=== PATIENT | female | born 1975 | race Caucasian/White ===

== ENCOUNTER → 2017-03-29 10:38 | Outpatient (CLI) | payer BC, SELFPAY ==
[2017-04-03 13:39] LABS: HPV HC, High Risk Negative (Negative)
== END ==
PROVIDERS: Family Provider Family Medicine; PCP Family Medicine; Visit Provider Family Medicine
DX: Z00.00 Encounter for general adult medical examination without abnormal findings (principal)
CPT/HCPCS: 87624; 88175; G0145

== ENCOUNTER → 2017-08-28 10:49 | Outpatient (CLI) | payer BC, SELFPAY ==
[2017-08-28 12:51] LABS: Hemoglobin A1c 5.5 % (4.2-6.3)
[2017-08-28 13:09] LABS: Absolute Lymphocyte Count 2.63 X10^3/ul (0.83-4.51); Absolute Neutrophil Count 6.8 X10^3/uL (2.0-7.7); Basophil# 0.02 X10^3/uL; Basophil% 0.2 % (0-1); Eosinophil# 0.33 X10^3/uL; Eosinophils% 3.1 % (0-5); Hematocrit 41.3 % (37-47); Lymphocyte # 2.63 X10^3/ul (4.0); Lymphocyte % 25.1 % (19-41); Mean Corp Hgb Conc 33.9 g/gl (32-36); Mean Corpuscular Hgb 31.4 pg (27.0-32.0); Mean Corpuscular Volume 92.6 fL (81-99); Mean Platelet Vol. 11.7 fl (6.2-12.0); Monocyte# 0.72 X10^3/uL; Monocyte% 6.9 % (0-10); Neutrophil # 6.76 X10^3/uL (2.7-7.7); Neutrophil % 64.5 % (47-70); Platelet Count 261 K/mm3 (150-450); RBC Distribution Width CV 12.9 % (11.6-14.6); RBC Distribution Width SD 43.1 fl (35.1-43.9); Red Blood Count 4.46 M/mm3 (4.2-5.4); White Blood Count 10.5 K/mm3 (4.4-11.0)
[2017-08-28 13:10] LABS: POSITIVE COUNT NO; POSITIVE DIFFERENTIAL NO; POSITIVE MORPHOLOGY NO
[2017-08-28 13:11] LABS: AST(SGOT) 17 U/L (15-37); Alanine Aminotransfer ALT/SGPT 30 U/L (13-56); Albumin, Serum 3.8 g/dL (3.2-5.0); Alkaline Phosphatase 77 U/L (45-117); Anion Gap 5 (5-15); BUN 10 mg/dL (7-18); BUN/Creat Ratio 12.6 RATIO (10-20); Chloride 105 mmol/L (98-107); EST Glomerular Filtration Rate 84 mL/min (>60); Est Glom Filt Rate - Afr Amer 102 mL/min (>60); Globulin 3.8 g/dL (2.2-4.2); Glucose 80 mg/dL (74-106); Potassium 4.4 mmol/L (3.5-5.1); Protein, Total 7.6 g/dL (6.4-8.2); Sodium Level 137 mmol/L (136-145); Thyroid Stim Hormone (TSH) 2.95 uIU/mL (0.358-3.74)
== END ==
PROVIDERS: Family Provider Family Medicine; PCP Family Medicine; Visit Provider Family Medicine
DX: G43.909 Migraine, unspecified, not intractable, without status migrainosus (principal)
CPT/HCPCS: 36415; 80053; 83036; 84443; 85025

== ENCOUNTER → 2018-02-19 14:54 | Outpatient (CLI) | payer BC, SELFPAY ==
--- NOTE | 2018-02-19 14:57 | BI_ITS ---
MAMMOGRAPHY - BILATERAL SCREENING REASON FOR EXAM: Female, 42 years old. Routine annual screening examination. PERTINENT HISTORY: Non-contributory. TECHNIQUE: Digital bilateral breast dayna (3D mammographic acquisition) in the CC and MLO projections. 2-D mediolateral oblique (MLO) and craniocaudad (CC) views of both breasts were obtained. CAD: Full Field Digital Mammography with Computer Added Detection was performed. COMPARISON: None. Baseline examination. FINDINGS: Breast Composition: There are scattered areas of fibroglandular density. There are no dominant masses or suspicious calcifications. Small benign appearing bilateral axillary nodes. No other significant abnormalities are identified. BI/SCREENING MAMM (CAD), BILAT IMPRESSION: Negative screening mammogram. Yearly followup mammogram recommended. (A) ASSESSMENT CATEGORY: BIRADS Category 2: Benign. A letter regarding these results will be sent to the patient by the facility within 30 days. Approximately 10% of breast cancers are not detected by mammography. A normal mammogram should not delay biopsy of a clinically suspicious abnormality. [id number] Electronically Signed: Simon Ndiaye MD at 8:12 EST Tel [phone], Service support ,
== END ==
PROVIDERS: Family Provider Family Medicine; PCP Family Medicine; Visit Provider Family Medicine
DX: Z12.31 Encounter for screening mammogram for malignant neoplasm of breast (principal)
CPT/HCPCS: 77063; 77067

== ENCOUNTER 2018-10-31 12:53 | Observation (INO) | payer BC, SELFPAY ==
--- NOTE | 2018-10-31 12:55 | CT_ITS ---
STUDY: CT ABDOMEN AND PELVIS WITHOUT CONTRAST REASON FOR EXAM: Female, 43 years old. Right lower quadrant pain. Possible appendicitis. RADIATION DOSAGE (If Supplied By Facility): CTDIvol = ( 20.23 ) mGy, DLP = ( 1061.54 ) mGycm TECHNIQUE: Transaxial images were obtained from the dome of the diaphragm to the symphysis pubis without oral contrast, and without intravenous contrast. Sagittal and coronal images were reconstructed. Individualized dose optimization techniques were used for this CT. COMPARISON: None. FINDINGS: The visualized lung bases are unremarkable. The visualized portions of the heart are within normal limits. There is decreased attenuation of the liver consistent with steatosis. The patient is status post cholecystectomy. Normal spleen. Normal pancreas. Normal bilateral adrenal glands. Normal right kidney. Normal left kidney. There is a small hiatal hernia. Normal small intestine. Normal colon. The appendix is visualized and appears normal. Normal abdominal aorta. Normal inferior vena cava. There is borderline retroperitoneal lymphadenopathy with enlarged nodes no greater than 10mm in the short axis diameter. Normal urinary bladder. Evidence of prior bilateral tubal ligation. Normal abdominal wall. Normal osseous structures. CT/Abdomen/Pelvis without Cont IMPRESSION: Fatty infiltration of the liver. The appendix is visualized and is normal. Electronically Signed: Simon Ndiaye, at 14:03 EDT , Service support ,
[2018-10-31 13:08] VITALS: BMI 37.7
[2018-10-31 13:18] LABS: Absolute Neutrophil Count 9.3 X10^3/uL (2.0-7.7); Basophil# 0.05 X10^3/uL; Basophil% 0.4 % (0-1); Eosinophil# 0.27 X10^3/uL; Hematocrit 40.8 % (37-47); Hemoglobin 13.8 g/dL (12.0-15.0); Lymphocyte % 24.1 % (19-41); Mean Corp Hgb Conc 33.8 g/dL (32-36); Mean Corpuscular Hgb 31.9 pg (27.0-32.0); Mean Corpuscular Volume 94.2 fL (81-99); Mean Platelet Vol. 10.4 fl (6.2-12.0); Monocyte# 0.71 X10^3/uL; Monocyte% 5.2 % (0-10); NRBC Flagged by Analyzer 0 % (0-5); Neutrophil # 9.33 X10^3/uL (2.7-7.7); Neutrophil % 67.9 % (47-70); Platelet Count 260 K/mm3 (150-450); RBC Distribution Width CV 12.8 % (11.6-14.6); Red Blood Count 4.33 M/mm3 (4.2-5.4); White Blood Count 13.7 K/mm3 (4.4-11.0)
--- NOTE | 2018-10-31 13:19 | HP.PCM_ITS ---
Problem List (1) RLQ abdominal pain Status: Acute History and Physical Date of Admission: 10/31/18 Intake Intake Visit Reasons: Abdominal Pain Allergies No Known Allergies Allergy (Verified 11/23/15 17:02) [facility] [place] Social History (Updated 10/31/18 @ 12:49 by Reinaldo Horne MD) Smoking Status: Never smoker HPI HPI HPI: JOSIAH ADEN, is a 43 F who presents to the office today for HPI HPI HPI: JOSIAH ADEN, is a 43 F who presents to the office today for right lower quadrant pain. She reports right lower quadrant pain started yesterday evening. She says that she is having nausea and anorexia with chills. No vomiting. ROS General General: No weight change or fatigue Endo Endocrine: Yes diabetes mellitus Cardio Cardiovascular: Yes high blood pressure; no murmur, pacemaker, heart disease, atrial fibrillation, heart attack, heart stent, palpitations, shortness of breat with exertion or chest pain Psych Psychiatric: No depression or anxiety Resp Respiratory: No shortness of breath, No sleep apnea, No cough, No COPD, No asthma, No emphysema, No wheezing Gastro Gastrointestinal: Yes abdominal pain, Yes nausea or vomiting, No diarrhea, No constipation, No blood in stool, No acid reflux, No hemorrhoids, No ulcers, No gallbladder problem, No black,tarry stools Jonny Hematologic: No blood thinners Exam Const General: cooperative Orientation: alert, oriented x3 Resp Effort & Inspection: normal respiratory effort Auscultation: clear to auscultation bilaterally Cardio Rate: regular rate Rhythm: regular rhythm Heart Sounds: no murmurs GI Inspection: non-distended Palpation: soft, tender in the RLQ and at McBurney's point Assessment & Plan Problems 1. Acute appendicitis, unspecified acute appendicitis type K35.80 Plan The patient has right lower quadrant pain suggestive of appendicitis. I will direct admit her to the hospital and order lab work as well as a CT scan. If CT is suggestive of appendicitis I will take her this afternoon for lap scopic appendectomy. I discussed laparoscopic appendectomy with the patient detail including the risks of bleeding, infection, injury to surrounding organs. The patient understands and is willing to proceed. Reinaldo Horne MD Pager: [facility] [address] [place] [address], [address] [place] [phone] Office:
[2018-10-31 13:30] VITALS: BP 177/86; PULSE 84; RESP 16; TEMP 36.6; O2SAT 99
[2018-10-31 13:35] LABS: Mucous, Urine 0 SEEN /hpf (<or=2+); White Blood Cells 0 SEEN /hpf (0-5)
[2018-10-31 13:43] LABS: AST(SGOT) 22 U/L (15-37); Alanine Aminotransfer ALT/SGPT 38 U/L (13-56); Albumin, Serum 3.8 g/dL (3.2-5.0); Alkaline Phosphatase 77 U/L (45-117); Anion Gap 10 (5-15); BUN 10 mg/dL (7-18); BUN/Creat Ratio 13.4 RATIO (10-20); Calcium,Total 8.8 mg/dL (8.5-10.1); Chloride 107 mmol/L (98-107); Creatinine, Serum 0.74 mg/dL (0.55-1.02); EST Glomerular Filtration Rate 90 mL/min (>60); Est Glom Filt Rate - Afr Amer 109 mL/min (>60); Estimated Creatinine Clearance 95.33 ml/min; Globulin 3.7 g/dL (2.2-4.2); Glucose 93 mg/dL (74-106); Potassium 3.9 mmol/L (3.5-5.1); Protein, Total 7.5 g/dL (6.4-8.2); Sodium Level 142 mmol/L (136-145)
[2018-10-31 13:45] LABS: Color, Urine Yellow (Yellow); Glucose, Dipstick Normal (Normal); Ketone-Dipstick Negative (Negative); Leukocyte Esterase-Dipstick Negative /ul (Negative); Nitrite-Dipstick Negative (Negative); Occult Blood-Urine 25 /ul (Negative); Protein-Dipstick Negative (Negative); Urine Bilirubin Dipstick Negative (Negative); Urine Clarity Clear (Clear); Urine Urobilinogen Normal (Normal)
--- NOTE | 2018-10-31 13:45 | EKG12_ITS ---
Test Reason : Blood Pressure : / mmHG Vent. Rate : 061 BPM Atrial Rate : 061 BPM P-R Int : 170 ms QRS Dur : 086 ms QT Int : 414 ms P-R-T Axes : 009 046 039 degrees QTc Int : 416 ms Normal sinus rhythm with sinus arrhythmia Normal ECG Confirmed by SARAH NAIDU, CHANDA ([id number]), society editor HEATH CROW ([id number]) on 11/05/2018 11:06:42 AM Referred By: Reinaldo Horne Confirmed By:CHANDA SMITH MD
[2018-10-31] MEDS: 0.9% Normal Saline 1,000 ML 125 ML IV ×2 (13:50→21:45)
[2018-10-31] MEDS: Morphine 2 MG/ML Syringe IV ×2 (13:52→16:28)
[2018-10-31] MEDS: Ondansetron 4 MG/2 ML Vial IV (13:52)
[2018-10-31 13:53] LABS: Internal QC Validated? YES +Cl - CLEAR BKGD; Pregnancy, Urine Negative Negative
[2018-10-31 14:07] LABS: Squamous Epithelial Cells - UA 0-5 SEEN /hpf (5-10)
[2018-10-31 14:09] LABS: Bacteria RARE /hpf (None Seen); Red Blood Cells-Urine 0-5 SEEN /hpf (0-5)
--- NOTE | 2018-10-31 14:34 | PCM.PN.BLA ---
Progress Note WBC elevated with no left shift, UA normal. CT abd indicated normal appendix. No pathology on CT. Explained to pt. Will continue NPO/IVF and pain control over night. Repeat CBC in am. Possibly mesenteric adenitis. Reinaldo Horne MD
[2018-10-31 15:15] LABS: Hemoglobin A1c 5.5 % (4.2-6.3)
[2018-10-31 19:55] VITALS: BP 141/83; PULSE 74; RESP 16; TEMP 36.4; O2SAT 98
[2018-11-01 02:17] VITALS: BP 125/79; PULSE 86; RESP 16; TEMP 36.4; O2SAT 99
[2018-11-01] MEDS: 0.9% Normal Saline 1,000 ML 125 ML IV (05:32)
[2018-11-01 06:34] LABS: Absolute Lymphocyte Count 2.76 X10^3/uL (0.83-4.51); Absolute Neutrophil Count 5.4 X10^3/uL (2.0-7.7); Basophil# 0.04 X10^3/uL; Basophil% 0.4 % (0-1); Eosinophil# 0.24 X10^3/uL; Eosinophils% 2.7 % (0-5); Hematocrit 37.7 % (37-47); Hemoglobin 12.5 g/dL (12.0-15.0); Lymphocyte # 2.76 X10^3/ul (4.0); Lymphocyte % 30.8 % (19-41); Mean Corp Hgb Conc 33.2 g/dL (32-36); Mean Corpuscular Hgb 31.8 pg (27.0-32.0); Mean Corpuscular Volume 95.9 fL (81-99); Mean Platelet Vol. 10.9 fl (6.2-12.0); Monocyte# 0.47 X10^3/uL; Monocyte% 5.3 % (0-10); NRBC Flagged by Analyzer 0 % (0-5); Neutrophil # 5.42 X10^3/uL (2.7-7.7); Neutrophil % 60.6 % (47-70); Platelet Count 212 K/mm3 (150-450); RBC Distribution Width SD 46.1 fl (35.1-43.9); Red Blood Count 3.93 M/mm3 (4.2-5.4)
--- NOTE | 2018-11-01 07:35 | PN.SURG_ITS ---
Patient Problems: Active and Suspected Problems (Last Updated 10/31/18 @ 12:49 by Lima Katz) RLQ abdominal pain (Acute) Subjective: Patient reports that the pain is improved but still present in the right lower quadrant. - Physical Exam General: Alert, Oriented x3 Lungs: Normal air movement Cardiovascular: Regular rate, Regular Rhythm Abdomen: Soft, Non-Distended, Tender - Tender to deep palpation in the right lower quadrant but much less tender than yesterday Vital Signs Temp Pulse Resp BP Pulse Ox 97.5 F L 86 16 125/79 H 99 11/01/18 02:17 11/01/18 02:17 11/01/18 02:17 11/01/18 02:17 11/01/18 02:17 Oxygen Delivery Method Room Air Weight: 241 lb Body Mass Index (BMI) 37.7 Finger Stick Blood Glucose 181 Intake and Output for Last 24 Hours 10/30/18 10/31/18 11/01/18 23:59 23:59 23:59 Intake Total 989.58 / 989.58 1372.92 / 1372.92 Output Total 550 / 550 Balance 989.58 / 989.58 822.92 / 822.92 Laboratory Tests Past 24 Hrs 10/31/18 10/31/18 10/31/18 13:11 13:11 13:30 WBC 13.7 H RBC 4.33 Hgb 13.8 Hct 40.8 MCV 94.2 MCH 31.9 MCHC 33.8 RDW Std Deviation 44.0 H RDW Coeff of Akash 12.8 Plt Count 260 MPV 10.4 Immature Gran % (Auto) 0.400 Neut % (Auto) 67.9 Lymph % (Auto) 24.1 Waller % (Auto) 5.2 Eos % (Auto) 2.0 Baso % (Auto) 0.4 Absolute Neuts (auto) 9.3 H Absolute Lymphs (auto) 3.30 Nucleated RBC % 0 Sodium 142 Potassium 3.9 Chloride 107 Carbon Dioxide 25.0 Anion Gap 10 BUN 10 Creatinine 0.74 Estim Creat Clear Calc 95.33 Est GFR (MDRD) Af Amer 109 Est GFR (MDRD) Non-Af 90 BUN/Creatinine Ratio 13.4 Glucose 93 Hemoglobin A1c Calcium 8.8 Total Bilirubin 1.00 AST 22 ALT 38 Alkaline Phosphatase 77 Total Protein 7.5 Albumin 3.8 Globulin 3.7 Albumin/Globulin Ratio 1.0 Urine Color Yellow Urine Clarity Clear Urine pH 5.0 Ur Specific [place] 1.020 Urine Protein Negative Urine Glucose (UA) Normal Urine Ketones Negative Urine Occult Blood 25 H Urine Nitrite Negative Urine Bilirubin Negative Urine Urobilinogen Normal Ur Leukocyte Esterase Negative Urine RBC 0-5 SEEN Urine WBC 0 SEEN Ur Squamous Epith Cells 0-5 SEEN Urine Bacteria RARE Urine Mucus 0 SEEN Urine Test Negative 10/31/18 11/01/18 13:46 05:10 WBC 9.0 RBC 3.93 L Hgb 12.5 Hct 37.7 MCV 95.9 MCH 31.8 MCHC 33.2 RDW Std Deviation 46.1 H RDW Coeff of Akash 13.0 Plt Count 212 MPV 10.9 Immature Gran % (Auto) 0.200 Neut % (Auto) 60.6 Lymph % (Auto) 30.8 Waller % (Auto) 5.3 Eos % (Auto) 2.7 Baso % (Auto) 0.4 Absolute Neuts (auto) 5.4 Absolute Lymphs (auto) 2.76 Nucleated RBC % 0 Sodium Potassium Chloride Carbon Dioxide Anion Gap BUN Creatinine Estim Creat Clear Calc Est GFR (MDRD) Af Amer Est GFR (MDRD) Non-Af BUN/Creatinine Ratio Glucose Hemoglobin A1c 5.5 Calcium Total Bilirubin AST ALT Alkaline Phosphatase Total Protein Albumin Globulin Albumin/Globulin Ratio Urine Color Urine Clarity Urine pH Ur Specific [place] Urine Protein Urine Glucose (UA) Urine Ketones Urine Occult Blood Urine Nitrite Urine Bilirubin Urine Urobilinogen Ur Leukocyte Esterase Urine RBC Urine WBC Ur Squamous Epith Cells Urine Bacteria Urine Mucus Urine Test Clinical Impression(s) from Imaging Studies Abdomen/Pelvis CT 10/31/18 12:55 IMPRESSION: Fatty infiltration of the liver. The appendix is visualized and is normal. Electronically Signed: Simon Ndiaye, at 14:03 EDT , Service support , Medical Necessity - Tobacco Use Smoking Status: Never smoker Assessment/Plan All Active Problems (Last Updated 10/31/18 @ 12:49 by Lima Katz) RLQ abdominal pain (Acute) 43-year-old female with mesenteric adenitis 1. The patient had a CT scan done yesterday which showed normal appendix. There were some mildly enlarged lymph nodes in that area. The patient may be having mesenteric adenitis. I explained this in detail with the patient. Patient's white count is normal today with no antibiotic administration. I will give her regular diet and if she tolerates this discharge her home. Reinaldo Horne MD Pager: [facility] [address] [place] [address] [address] [place] [address] Office:
--- NOTE | 2018-11-01 07:37 | DCINST_ITS ---
- Discharge Diagnoses Current Active Problems: Current Active and Chronic Problems (Last Updated 10/31/18 @ 12:49 by Lima Katz) RLQ abdominal pain (Acute) You will use the following diet at home:: No restrictions, Regular Your food should be the consistency of: Regular Your liquids should be the consistency of: Regular/Thin Discharge Activity: Return to Normal Activity Call your doctor if your incision/area has: Increased Pain/ Swelling Call your doctor if you observe: Fever of 101 or Higher Allergies/Adverse Reactions: Allergies No Known Allergies Allergy (Verified 11/23/15 17:02) Medications to take at Discharge Metoprolol(XL)Succ [Toprol Xl (Beta Danis)] 50 mg PO DAILY 10/27/14 Spironolactone 50 mg PO DAILY 10/27/14 metFORMIN HCl [Glucophage] 500 mg PO DAILY 10/27/14 Primary Care Physician: Eric Cordoba MD [Primary Care Provider] - Test Results: Test results from this visit will be discussed in further detail at your follow- up appointment, if applicable. Please Follow Up With: Reinaldo Horne MD When: Follow up in 1 week to ensure improvement, call for appt [phone]
[2018-11-01 10:03] VITALS: BP 125/77; PULSE 71; RESP 18; TEMP 36.9; O2SAT 99
== END 2018-11-01 10:25 | disposition home or self-care (01) ==
PROVIDERS: Admitting Provider Surgery; Family Provider Family Medicine; PCP Family Medicine; Referring Provider Surgery; Visit Provider Surgery
DX: R10.31 Right lower quadrant pain (principal); E11.9 Type 2 diabetes mellitus without complications; I10 Essential (primary) hypertension; Z79.899 Other long term (current) drug therapy; Z79.84 Long term (current) use of oral hypoglycemic drugs
CPT/HCPCS: 36415; 74176; 80053; 81001; 81025; 83036; 85025; 93005; 96361; 96374; 96375; 96376; 99218; J7030; G0378; G0379; J2405

== ENCOUNTER → 2018-11-11 13:59 | Outpatient (CLI) | payer BC, SELFPAY ==
[2018-10-31 13:08] VITALS: BMI 37.7
--- NOTE | 2018-11-11 14:03 | US_ITS ---
STUDY: ULTRASOUND OF THE FEMALE PELVIS - COMPLETE REASON FOR EXAM: Female, 43 years old. Right lower quadrant pain. TECHNIQUE: Transvaginal TECHNICAL QUALITY: Adequate. COMPARISON: CT dated 10/31/2018 FINDINGS: The uterus is anteverted and is in a midline position. The uterus measures 8.6 x 4.3 x 4.1 cm. There is a Nabothian cyst cysts are noted in the cervix. The endometrium measures 4 mm in thickness, and is hyperechoic. There is no demonstrated endometrial mass. There is no demonstrated myometrial mass. The right ovary is visualized. The right ovary measures 4.5 x 2.3 x 2.1 cm. There are 2 simple cysts noted in the right ovary, measuring 1.6 x 1.5 cm and 1.5 x 1.5 cm. There is no visualized right adnexal mass or complex lesion. There is normal arterial and normal venous vascularity. The left ovary is non-visualized. There is no fluid in the cul-de-sac. US/Transvaginal Non- IMPRESSION: Simple cysts in the right ovary. Otherwise, normal right ovary with normal Doppler flow. Left ovary not visualized. Nabothian cysts in the cervix. Otherwise, normal uterus. Electronically Signed: Reji Story, at 19:35 EDT Tel , Service support ,
== END ==
LOC: US 14:00
PROVIDERS: Family Provider Family Medicine; PCP Family Medicine; Referring Provider Family Medicine; Visit Provider Family Medicine
DX: R10.31 Right lower quadrant pain (principal)
CPT/HCPCS: 76830

== ENCOUNTER → 2019-12-22 11:31 | Outpatient (CLI) | payer BC, SELFPAY ==
[2018-10-31 13:08] VITALS: BMI 37.7
[2019-12-22 15:24] LABS: Hematocrit 38.2 % (37-47)
[2019-12-22 15:43] LABS: Anion Gap 3 (5-15); BUN 7 mg/dL (7-18); BUN/Creat Ratio 9.2 RATIO (10-20); Calcium,Total 8.9 mg/dL (8.5-10.1); Chloride 106 mmol/L (98-107); Creatinine, Serum 0.76 mg/dL (0.55-1.02); EST Glomerular Filtration Rate 87 mL/min (>60); Est Glom Filt Rate - Afr Amer 106 mL/min (>60); Glucose 109 mg/dL (74-106); Potassium 3.7 mmol/L (3.5-5.1); Sodium Level 138 mmol/L (136-145)
[2019-12-22 15:50] LABS: Microalbumin,Random Urine 8.4 mg/L (NO RANGE EST.); Microalbumin:Creatinine Ratio 7.3 mg/g CRE (<30 mg/g CRE)
== END ==
PROVIDERS: PCP Family Medicine; Referring Provider Family Medicine; Visit Provider Family Medicine
DX: I10 Essential (primary) hypertension (principal)
CPT/HCPCS: 36415; 80048; 82043; 82570; 85014

== ENCOUNTER → 2020-07-13 15:23 | Outpatient (CLI) | payer BC, SELFPAY ==
--- NOTE | 2020-07-13 13:08 | CYST_PTH ---
PATIENT: JOSIAH ADEN LOC: [facility] U#:[id number] AGE/SX: 49/F ROOM: RE07/13/[address]: Dr. Xenia Flannery MD : 1975 BED: DIS: SPEC #: [id number] RECD: 07/13/20 14:48 STATUS: KENIA REPerlita #: [id number] KYLEIGH: 07/13/20 13:[address]: Xenia Flannery DEPT: SURGICAL PATHOLOGY RECD BY: Mara Vences ENTERED: 07/14/20 11:26 SP TYPE: Cyst OTHR DR: Dr. Eric Cordoba MD Tissues: Right breast, NOS Procedures: Surgery Specimen Level III HEADER OPERATION: Excision of right medial breast cyst PRE-OP DIAGNOSIS: Right breast cyst TISSUE SUBMITTED: Right breast MICROSCOPIC DIAGNOSIS Right breast cyst, excision: A piece of skin with underlying tissue with chronic inflammation and foreign body giant cell reaction, consistent with ruptured epidermal inclusion cyst. SJ:jennifer 07/15/2020 MICROSCOPIC DESCRIPTION Slides are reviewed. GROSS DESCRIPTION Received in fixative is one container labeled with the patient's name and designated right breast cyst. The specimen consists of a piece of skin with underlying tissue. The skin piece measures 0.7 x 0.2 cm and underlying tissue measures 1 x 0.6 x 0.5 cm. The specimen is inked, bisected and submitted entirely in one cassette. / RADHA:jennifer 07/14/20 TC:5 CPT: 72559
[2020-07-13 13:27] VITALS: BMI 37.7
== END ==
PROVIDERS: PCP Family Medicine; Referring Provider Surgery; Visit Provider Surgery
DX: N60.01 Solitary cyst of right breast (principal)
CPT/HCPCS: 88304

== ENCOUNTER → 2020-11-24 08:14 | Outpatient (CLI) | payer BC, SELFPAY ==
[2020-11-24 10:57] LABS: ALB/GLOB Ratio 0.9 RATIO (0.9-2.4); AST(SGOT) 18 U/L (15-37); Alanine Aminotransfer ALT/SGPT 38 U/L (13-56); Albumin, Serum 3.4 g/dL (3.2-5.0); Alkaline Phosphatase 65 U/L (45-117); Anion Gap 5 (5-15); BUN 8 mg/dL (7-18); BUN/Creat Ratio 11.8 RATIO (10-20); Calcium,Total 8.7 mg/dL (8.5-10.1); Chloride 105 mmol/L (98-107); Cholesterol 221 mg/dL (200); Creatinine, Serum 0.68 mg/dL (0.55-1.02); EST Glomerular Filtration Rate 99 mL/min (>60); Est Glom Filt Rate - Afr Amer 120 mL/min (>60); Globulin 3.6 g/dL (2.2-4.2); Glucose 107 mg/dL (74-106); High Density Lipoprotein 31 mg/dL; Potassium 4.5 mmol/L (3.5-5.1); Sodium Level 138 mmol/L (136-145); Triglycerides 214 mg/dL; Very Low Density Lipoprotein 43 mg/dL (5-40)
[2020-11-24 11:00] LABS: Hemoglobin A1c 5.7 % (3.8-5.6)
== END ==
LOC: MFPLAB 08:15
PROVIDERS: PCP Family Medicine; Referring Provider Family Medicine; Visit Provider Family Medicine
DX: I10 Essential (primary) hypertension (principal); E88.81 Metabolic syndrome and other insulin resistance
CPT/HCPCS: 36415; 80053; 80061; 83036

== ENCOUNTER 2020-12-22 14:30 | Outpatient (RCR) | payer BC, SELFPAY ==
--- NOTE | 2020-12-09 07:54 | HP.OTEVAL ---
Patient's Visit Information JOSIAH ADEN is a 45 year old F, referred to Occupational Therapy by Dr. Eric Cordoba MD, with a diagnosis of right hand paresthesia, right lateral epicondylitis, mid-forearm pain-. Date of Evaluation: 12/08/20 Occupational Therapist: Luba Holder, REBECCAR/Ivonne, CHT - Subjective This 45 year old female was seen for OT eval with dx of right hand paresthesia, right lateral epicondylitis, mid-forearm pain-. states symptoms of pain, tingling, and weakness has gotten worse-. 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 pt states she did get a counter force brace about a week ago- and this has helped-. states she can not lift yeti cup - Pain right handed 2 - Strength Patient Ombudsperson: right 15# left 65# Lateral Pinch: right 6# left 10# Tripod Pinch: right unable left 10# Tip-to-Tip Pinch: right unable left 8# Strength Comments: arm straight right 10# left 50# - Sensation Thumb: right 2.83 left 2.83 Index: right 2.83 left 2.83 Middle: right 2.83 left 2.83 Ring: right 2.83 left 2.83 Little: right 2.83 left 2.83 - Special Tests Lat Epiconylitis - as named: positive - Goals Goal:: pt will demo a increase in right UE MMT 5/5 or greater to increase pts IND with ADLs and IADLs by d.c. pt will demo a increase in right health technician hearing to 45# or greater to return pt to PLOF with ADLs Goal:: pt will report no pain greater than 2/10 with use of right UE with ADLs and IADLs by d/c Goal:: pt will demo understanding of using lateral epi. protective positioning when using right UE with ADLs and IADLs by d/c - Rehabilitation General Assessment: pt demo with positive lateral epi. and symptoms of median and radial nerve irritation. pts pain and weakness limit her with her ADLs and IADLs. pt would benefit from skilled OT services 2x week for 6 weeks to return pt to PLOF. Today therapist ed. pt on lat. ep dx, forearm stretches, radial nerve glides and use of counter force brace. Ice and heat to decrease pain- therapist discussed with pt bowling positions and decreasing wt. of her bowling ball to 10# or less from a 15# ball. pt demo understanding and agree to POC. Rehabilitation Potential: Good - Anticipated Interventions A/AAROM/PROM, Strengthening, Triggerpoint Release, Modalities, Ergonomic Education, Home Program, Other Other Interventions: bowling accommodations - Visit Plan Frequency: 2x /Week Duration: 4 Weeks TEXT: Thank you for the opportunity to evaluate your patient. For Medicare and Medicare HMO plans, please review the plan of care and approve it. It will need to be FAXED BACK to us at [phone] for Medicare purposes. Please let me know if there are questions or concerns regarding this plan of care. Physician Signature: Date:
--- NOTE | 2021-02-21 10:15 | HP.OT.NRP ---
JOSIAH ADEN was seen in my office for initial evaluation on 12/08/20. The following Plan of Care was established for this patient: Initial Frequency: 2x /Week Initial Duration: 4 Weeks Anticipated Interventions: A/AAROM/PROM, Strengthening, Triggerpoint Release, Modalities, Ergonomic Education, Home Program, Other Other Interventions: bowling accommodations This patient was last seen in our office 12/22/20. Pertinent comments regarding their Occupational therapy will appear below: pt was seen for 4 OT session- pts pain did diminish and pt c/o tightness- pt last seen 12/22/20 and no further apts scheduled- due to time lapse in services pt d/c. At this point I will be discontinuing this patient from occupational therapy. I would be happy to see this patient again in the future if found appropriate by the physician. Thank you! Luba Holder, OTR/L, CHT
== END 2020-12-22 19:00 | disposition home or self-care (01) ==
LOC: OT 14:30
PROVIDERS: PCP Family Medicine; Referring Provider Family Medicine; Visit Provider Family Medicine
DX: R20.2 Paresthesia of skin (principal); M77.11 Lateral epicondylitis, right elbow; M79.631 Pain in right forearm
CPT/HCPCS: 97035; 97110; 97140; 97166

== ENCOUNTER 2021-04-01 07:42 | Outpatient (CLI) | payer BC, SELFPAY ==
--- NOTE | 2021-04-01 07:51 | CT_ITS ---
STUDY: CT BRAIN WITHOUT CONTRAST REASON FOR EXAM: Female, 46 years old. cognitive change, new onset headaches and tremor RADIATION DOSAGE (If Supplied By Facility): CTDIvol = ( 47.06 ) mGy, DLP = ( 855.03 ) mGycm TECHNIQUE: Transaxial CT imaging of the brain was performed without administration of intravenous contrast material. Individualized dose optimization techniques were used for this CT. COMPARISON: No relevant priors. FINDINGS: Normal soft tissue structures. Normal calvarium. Normal size ventricles and extra-axial spaces for the patient''s age. Normal white matter tracts of the cerebral hemispheres. Normal basal ganglia and thalami. Normal brainstem. Normal cerebellum. There is no intracranial hemorrhage. There are no findings of an acute ischemic infarction. Normal visualized paranasal sinuses. CT/Brain/Head without Contrast IMPRESSION: Normal unenhanced CT scan of the brain. Electronically Signed: Zack Ugalde MD at 9:15 EST ,
== END 2021-04-01 23:59 | disposition home or self-care (01) ==
PROVIDERS: PCP Family Medicine; Visit Provider Family Medicine
DX: G43.109 Migraine with aura, not intractable, without status migrainosus (principal); R25.1 Tremor, unspecified
CPT/HCPCS: 70450

== ENCOUNTER → 2022-01-09 | Outpatient (CLI) | payer BC, SELFPAY ==
[2022-01-09 10:31] LABS: ALB/GLOB Ratio 1.1 RATIO (0.9-2.4); AST(SGOT) 17 U/L (15-37); Alanine Aminotransfer ALT/SGPT 37 U/L (13-56); Albumin, Serum 3.7 g/dL (3.2-5.0); Alkaline Phosphatase 66 U/L (45-117); Anion Gap 9 (5-15); BUN 9 mg/dL (7-18); BUN/Creat Ratio 12.8 RATIO (10-20); Calcium,Total 9.1 mg/dL (8.5-10.1); Chloride 102 mmol/L (98-107); EST Glomerular Filtration Rate 95 mL/min (>60); Est Glom Filt Rate - Afr Amer 115 mL/min (>60); Globulin 3.5 g/dL (2.2-4.2); Glucose 117 mg/dL (74-106); Potassium 4.4 mmol/L (3.5-5.1); Protein, Total 7.2 g/dL (6.4-8.2); Sodium Level 138 mmol/L (136-145)
[2022-01-09 11:37] LABS: Vitamin B12 602 pg/mL (211-911); Vitamin D,25 Hydroxy 15.1 ng/mL
== END | disposition home or self-care (01) ==
LOC: MFPLAB 09:14
PROVIDERS: PCP Family Medicine; Visit Provider Nurse Practitioner Family
DX: R53.83 Other fatigue (principal); I10 Essential (primary) hypertension
CPT/HCPCS: 36415; 80053; 82306; 82607; 84443

== ENCOUNTER → 2022-04-07 | Outpatient (CLI) | payer BC, SELFPAY ==
--- NOTE | 2022-04-07 07:02 | MRI_ITS ---
INDICATION: Pain AFTER KNEE POPPED EXAMINATION: MRI - RIGHT MR Knee W/O Contrast TECHNIQUE: Multiplanar and multisequence MR images of the RIGHT knee. IV Contrast Dosage and Agent: None. COMPARISON: None. FINDINGS: BONE: Mild tricompartmental osteoarthritis. There is a chondral defect of the inferior articular surface of the medial femoral condyle in its midportion measuring 0.33 cm transverse. JOINT: Small suprapatellar joint effusion. MUSCLES: Unremarkable. MENISCI: Posterior horn medial meniscus mild myxoid change. Anterior horn medial meniscus intact. Lateral meniscus intact. CRUCIATE LIGAMENTS: Anterior and posterior cruciate ligaments are intact. COLLATERAL LIGAMENTS: Medial collateral ligament and lateral collateral ligamentous complex, inclusive of the popliteal tendon, are intact. CARTILAGE: Articular cartilage intact. OTHER SOFT TISSUES: Moderate subcutaneous edema anterior to patellar tendon. MRI/Lower Ext Joint Only (Routine) IMPRESSION: Chondral defect inferior reticular surface medial femoral condyle 0.33 cm transverse. Myxoid change posterior horn medial meniscus. Moderate subcutaneous edema anterior to patella tendon. Small suprapatellar joint effusion. Tricompartmental chondromalacia and osteoarthritis as above. Electronically Signed: Minh Yeung MD, LEÓN at 9:11 EST ,
== END | disposition home or self-care (01) ==
PROVIDERS: PCP Family Medicine
DX: M23.91 Unspecified internal derangement of right knee (principal)
CPT/HCPCS: 73721

== ENCOUNTER → 2022-06-26 | Outpatient (CLI) | payer BC, SELFPAY ==
[2022-06-26 18:46] LABS: ALB/GLOB Ratio 0.9 RATIO (0.9-2.4); AST(SGOT) 23 U/L (15-37); Alanine Aminotransfer ALT/SGPT 48 U/L (13-56); Albumin, Serum 3.6 g/dL (3.2-5.0); Alkaline Phosphatase 77 U/L (45-117); Anion Gap 6 (5-15); BUN 9 mg/dL (7-18); BUN/Creat Ratio 13.9 RATIO (10-20); Calcium,Total 9.1 mg/dL (8.5-10.1); Chloride 104 mmol/L (98-107); Creatinine, Serum 0.65 mg/dL (0.55-1.02); EST Glomerular Filtration Rate 104 mL/min (>60); Est Glom Filt Rate - Afr Amer 126 mL/min (>60); Globulin 3.8 g/dL (2.2-4.2); Glucose 122 mg/dL (74-106); Potassium 3.7 mmol/L (3.5-5.1); Protein, Total 7.4 g/dL (6.4-8.2); Sodium Level 137 mmol/L (136-145)
== END | disposition home or self-care (01) ==
LOC: MFPLAB 16:14
PROVIDERS: PCP Family Medicine; Visit Provider Nurse Practitioner Family
DX: I10 Essential (primary) hypertension (principal)
CPT/HCPCS: 36415; 80053

== ENCOUNTER → 2022-07-03 | Outpatient (CLI) | payer BC, SELFPAY ==
[2022-07-03 15:21] LABS: Absolute Lymphocyte Count 3.72 X10^3/uL (0.83-4.51); Absolute Neutrophil Count 6.7 X10^3/uL (2.0-7.7); Basophil# 0.07 X10^3/uL; Basophil% 0.6 % (0-1); Eosinophil# 0.29 X10^3/uL; Eosinophils% 2.4 % (0-5); Hematocrit 41.6 % (37-47); Hemoglobin 13.8 g/dL (12.0-15.0); Lymphocyte # 3.72 X10^3/ul (0.83-4.51); Lymphocyte % 31.4 % (19-41); Mean Corp Hgb Conc 33.2 g/dL (32-36); Mean Corpuscular Hgb 31.9 pg (27.0-32.0); Mean Corpuscular Volume 96.1 fL (81-99); Mean Platelet Vol. 10.8 fl (6.2-12.0); Monocyte# 0.98 X10^3/uL; Monocyte% 8.3 % (0-10); NRBC Flagged by Analyzer 0 % (0-5); Neutrophil # 6.74 X10^3/uL (2.7-7.7); Platelet Count 331 K/mm3 (150-450); RBC Distribution Width CV 12.7 % (11.6-14.6); Red Blood Count 4.33 M/mm3 (4.2-5.4); White Blood Count 11.8 K/mm3 (4.4-11.0)
[2022-07-03 15:42] LABS: Vitamin B12 520 pg/mL (211-911)
[2022-07-03 15:51] LABS: ALB/GLOB Ratio 0.9 RATIO (0.9-2.4); AST(SGOT) 23 U/L (15-37); Alanine Aminotransfer ALT/SGPT 36 U/L (13-56); Albumin, Serum 3.7 g/dL (3.2-5.0); Alkaline Phosphatase 70 U/L (45-117); Anion Gap 6 (5-15); BUN 9 mg/dL (7-18); BUN/Creat Ratio 12.8 RATIO (10-20); Calcium,Total 9.3 mg/dL (8.5-10.1); Chloride 103 mmol/L (98-107); EST Glomerular Filtration Rate 94 mL/min (>60); Est Glom Filt Rate - Afr Amer 114 mL/min (>60); Glucose 85 mg/dL (74-106); Protein, Total 7.7 g/dL (6.4-8.2); Sodium Level 136 mmol/L (136-145); Thyroid Stim Hormone (TSH) 2.43 uIU/mL (0.358-3.74)
[2022-07-05 12:09] LABS: Lyme Scn Total Ab w/Rflx Negative (Negative)
[2022-07-05 14:09] LABS: ANTINUCLEAR ANTIBODIES DIRECT Negative (Negative)
== END | disposition home or self-care (01) ==
LOC: MTLAB 12:46
PROVIDERS: PCP Family Medicine; Referring Provider Family Medicine; Visit Provider Family Medicine
DX: R53.83 Other fatigue (principal)
CPT/HCPCS: 36415; 80053; 82607; 84443; 85025; 86038; 86618

== ENCOUNTER → 2022-07-31 | Outpatient (CLI) | payer BC, SELFPAY ==
[2022-07-31 17:53] LABS: Anion Gap 7 (5-15); BUN 10 mg/dL (7-18); BUN/Creat Ratio 14.8 RATIO (10-20); Calcium,Total 9.5 mg/dL (8.5-10.1); Chloride 105 mmol/L (98-107); Creatinine, Serum 0.68 mg/dL (0.55-1.02); EST Glomerular Filtration Rate 99 mL/min (>60); Est Glom Filt Rate - Afr Amer 120 mL/min (>60); Glucose 129 mg/dL (74-106); Potassium 3.8 mmol/L (3.5-5.1); Sodium Level 136 mmol/L (136-145)
== END | disposition home or self-care (01) ==
LOC: MFPLAB 15:55
PROVIDERS: PCP Family Medicine; Visit Provider Family Medicine
DX: I10 Essential (primary) hypertension (principal)
CPT/HCPCS: 36415; 80048

== ENCOUNTER → 2022-10-18 | Outpatient (CLI) | payer BC, SELFPAY ==
--- NOTE | 2022-10-18 09:33 | VDLE_ITS ---
Reason For Study: pain and swelling RIGHT LEFT CFV is compressible, spontaneous, phasic, GSV is normal. competent and demonstrates normal CFV is compressible, spontaneous, phasic, augmentation. competent, and demonstrates normal Procedure augmentation. This is a venous duplex using B-mode, color FV is compressible, spontaneous, phasic, flow and spectral Doppler. competent and demonstrates normal Exam performed in department. augmentation. The exam was diagnostic. POP V is compressible, spontaneous, phasic, A preliminary report was called and/or faxed competent and demonstrates normal to Gricelda NOVA. augmentation. T/P Trunk is compressible. PTV is compressible. LT PerV is compressible. VL/Venous Duplex US, Unilateral Interpretation Summary There is no evidence of left lower extremity deep vein thrombosis. Left great s aphenous vein appears patent and compressible segmentally. Normal flow patterns right common femoral vein Ordering Physician: Gricelda Kovacs Performed By: Jay Huerta RVT
== END | disposition home or self-care (01) ==
LOC: CVS 09:28
PROVIDERS: PCP Family Medicine
DX: M79.89 Other specified soft tissue disorders (principal)
CPT/HCPCS: 93971

== ENCOUNTER → 2022-11-03 | Outpatient (CLI) | payer BC, SELFPAY ==
--- NOTE | 2022-11-03 08:15 | MRI_ITS ---
EXAM: MR LEFT LOWER EXTREMITY WITHOUT INTRAVENOUS CONTRAST, KNEE CLINICAL INDICATION: Pain, LT KNEE TECHNIQUE: Multiplanar and multisequence MR images of the left knee without intravenous contrast. COMPARISON: October 18, 2022 knee radiography FINDINGS: BONES/JOINTS: Prominent suprapatellar enthesophyte. Moderate patellofemoral osteoarthrosis with associated chondral loss. No fracture. No synovial hypertrophy. No intra-articular body. No concerning bone marrow signal alterations. EXTENSOR MECHANISM: Unremarkable. MEDIAL MENISCUS: Unremarkable. LATERAL MENISCUS: Unremarkable. MEDIAL CAPSULE/SUPPORTING STRUCTURES: Unremarkable. Intact. LATERAL CAPSULE/SUPPORTING STRUCTURES: Unremarkable. Lateral collateral ligamentous complex, inclusive of the popliteal tendon, are intact. ANTERIOR CRUCIATE LIGAMENT: Unremarkable. Intact. POSTERIOR CRUCIATE LIGAMENT: Unremarkable. Intact. MUSCLES: Unremarkable. CARTILAGE: Focal high-grade full-thickness chondral loss at the mid weightbearing aspect of the medial femoral condyle. FLUID: Moderate size suprapatellar joint fluid with small Schroeder''s cyst without evidence of inferior leakage or rupture. No joint effusion. OTHER SOFT TISSUES: See above. OTHER FINDINGS: Medial and lateral supporting structures are intact. MRI/Lower Ext Joint Only (Routine) IMPRESSION: 1. Moderate size suprapatellar joint fluid with small Schroeder''s cyst. 2. Focal high-grade full-thickness chondral loss at the mid weightbearing aspect of the medial femoral condyle. 3. Moderate patellofemoral osteoarthrosis. 4. No other significant internal derangement of the knee. Electronically Signed: Keven Ribeiro MD at 3:07 EDT ,
== END | disposition home or self-care (01) ==
PROVIDERS: PCP Family Medicine
DX: M23.92 Unspecified internal derangement of left knee (principal)
CPT/HCPCS: 73721

== ENCOUNTER → 2022-11-15 | Outpatient (CLI) | payer BC, SELFPAY ==
[2022-11-15 17:41] LABS: Absolute Lymphocyte Count 3.72 X10^3/uL (0.83-4.51); Absolute Neutrophil Count 9.5 X10^3/uL (2.0-7.7); Basophil# 0.08 X10^3/uL; Basophil% 0.5 % (0-1); Eosinophil# 0.41 X10^3/uL; Eosinophils% 2.8 % (0-5); Hematocrit 40.8 % (37-47); Hemoglobin 13.8 g/dL (12.0-15.0); Lymphocyte # 3.72 X10^3/ul (0.83-4.51); Lymphocyte % 25.5 % (19-41); Mean Corp Hgb Conc 33.8 g/dL (32-36); Mean Corpuscular Hgb 31.4 pg (27.0-32.0); Mean Corpuscular Volume 92.9 fL (81-99); Mean Platelet Vol. 10.7 fl (6.2-12.0); Monocyte# 0.88 X10^3/uL; NRBC Flagged by Analyzer 0 % (0-5); Neutrophil # 9.47 X10^3/uL (2.7-7.7); Neutrophil % 64.9 % (47-70); Platelet Count 321 K/mm3 (150-450); RBC Distribution Width CV 12.7 % (11.6-14.6); RBC Distribution Width SD 43.5 fl (35.1-43.9); Red Blood Count 4.39 M/mm3 (4.2-5.4); White Blood Count 14.6 K/mm3 (4.4-11.0)
[2022-11-15 18:24] LABS: AST(SGOT) 24 U/L (15-37); Alanine Aminotransfer ALT/SGPT 59 U/L (13-56); Albumin, Serum 3.7 g/dL (3.2-5.0); Alkaline Phosphatase 83 U/L (45-117); Anion Gap 6 (5-15); BUN 10 mg/dL (7-18); BUN/Creat Ratio 12.5 RATIO (10-20); Calcium,Total 8.9 mg/dL (8.5-10.1); Chloride 104 mmol/L (98-107); EST Glomerular Filtration Rate 82 mL/min (>60); Est Glom Filt Rate - Afr Amer 99 mL/min (>60); Globulin 3.8 g/dL (2.2-4.2); Glucose 158 mg/dL (74-106); Potassium 3.7 mmol/L (3.5-5.1); Protein, Total 7.5 g/dL (6.4-8.2); Sodium Level 135 mmol/L (136-145)
== END | disposition home or self-care (01) ==
LOC: MFPLAB 16:23
PROVIDERS: PCP Family Medicine; Visit Provider Family Medicine
DX: I10 Essential (primary) hypertension (principal); M17.9 Osteoarthritis of knee, unspecified
CPT/HCPCS: 36415; 80053; 85025

== ENCOUNTER → 2023-05-14 | Outpatient (CLI) | payer BC, SELFPAY ==
[2023-05-14 17:42] LABS: Absolute Lymphocyte Count 2.86 X10^3/uL (0.83-4.51); Absolute Neutrophil Count 6.5 X10^3/uL (2.0-7.7); Basophil# 0.06 X10^3/uL; Basophil% 0.6 % (0-1); Eosinophil# 0.46 X10^3/uL; Eosinophils% 4.4 % (0-5); Hematocrit 40.3 % (37-47); Hemoglobin 13.7 g/dL (12.0-15.0); Lymphocyte # 2.86 X10^3/ul (0.83-4.51); Lymphocyte % 27.1 % (19-41); Mean Corpuscular Hgb 31.2 pg (27.0-32.0); Mean Corpuscular Volume 91.8 fL (81-99); Mean Platelet Vol. 10.8 fl (6.2-12.0); Monocyte# 0.62 X10^3/uL; Monocyte% 5.9 % (0-10); NRBC Flagged by Analyzer 0 % (0-5); Neutrophil # 6.53 X10^3/uL (2.7-7.7); Neutrophil % 61.8 % (47-70); Platelet Count 320 K/mm3 (150-450); RBC Distribution Width CV 12.8 % (11.6-14.6); RBC Distribution Width SD 43.1 fl (35.1-43.9); Red Blood Count 4.39 M/mm3 (4.2-5.4); White Blood Count 10.6 K/mm3 (4.4-11.0)
[2023-05-14 18:03] LABS: Microalbumin,Random Urine 80.4 mg/L (NO RANGE EST.); Microalbumin:Creatinine Ratio 49.9 mg/g CRE (<30 mg/g CRE)
[2023-05-14 18:09] LABS: Hemoglobin A1c 6.6 % (3.8-5.6)
[2023-05-14 18:10] LABS: AST(SGOT) 54 U/L (15-37); Alanine Aminotransfer ALT/SGPT 74 U/L (13-56); Albumin, Serum 3.8 g/dL (3.2-5.0); Alkaline Phosphatase 89 U/L (45-117); Anion Gap 7 (5-15); BUN 7 mg/dL (7-18); BUN/Creat Ratio 9.8 RATIO (10-20); Calcium,Total 9.3 mg/dL (8.5-10.1); Chloride 105 mmol/L (98-107); Creatinine, Serum 0.72 mg/dL (0.55-1.02); EST Glomerular Filtration Rate 92 mL/min (>60); Est Glom Filt Rate - Afr Amer 112 mL/min (>60); Ferritin 98 ng/mL (8-252); Globulin 3.8 g/dL (2.2-4.2); Glucose 209 mg/dL (74-106); Potassium 3.8 mmol/L (3.5-5.1); Protein, Total 7.6 g/dL (6.4-8.2); Sodium Level 136 mmol/L (136-145)
== END | disposition home or self-care (01) ==
LOC: MFPLAB 14:54
PROVIDERS: PCP Family Medicine; Visit Provider Family Medicine
DX: I10 Essential (primary) hypertension (principal); E66.01 Morbid (severe) obesity due to excess calories; N92.0 Excessive and frequent menstruation with regular cycle; D72.829 Elevated white blood cell count, unspecified
CPT/HCPCS: 36415; 80053; 82043; 82570; 82728; 83036; 85025

== ENCOUNTER → 2023-05-27 | Outpatient (CLI) | payer BC, SELFPAY ==
--- NOTE | 2023-05-27 14:48 | BI_ITS ---
MAMMOGRAPHY - BILATERAL SCREENING REASON FOR EXAM: Female, 48 years old. Routine annual screening examination. PERTINENT HISTORY: Non-contributory. TECHNIQUE: Digital bilateral breast charmaine (3D mammographic acquisition) in the CC and MLO projections. 2-D mediolateral oblique (MLO) and craniocaudad (CC) views of both breasts were obtained. CAD: Full Field Digital Mammography with Computer Added Detection was performed. COMPARISON: Comparison is made with prior study dated February 19, 2018. FINDINGS: Breast Composition: The breasts are heterogeneously dense, which may obscure small masses. There are no dominant masses or suspicious calcifications. Stable small benign-appearing bilateral axillary lymph nodes. No other significant abnormalities are identified. There has been no significant change since the prior study. BI/SCRN MAMM (CAD)W/CHARMAINE BILAT IMPRESSION: Stable bilateral screening mammogram. Yearly follow-up mammogram recommended. (A) ASSESSMENT CATEGORY: BIRADS Category 2: Benign. A letter regarding these results will be sent to the patient by the facility within 30 days. Approximately 10% of breast cancers are not detected by mammography. A normal mammogram should not delay biopsy of a clinically suspicious abnormality. [id number] Electronically Signed: Simon Ndiaye MD at 15:27 EDT ,
== END | disposition home or self-care (01) ==
LOC: OPBI 14:47
PROVIDERS: PCP Family Medicine; Referring Provider Family Medicine; Visit Provider Family Medicine
DX: Z12.31 Encounter for screening mammogram for malignant neoplasm of breast (principal)
CPT/HCPCS: 77063; 77067

== ENCOUNTER 2023-06-08 08:41 | Outpatient (CLI) | payer BC, SELFPAY ==
--- NOTE | 2023-06-08 08:47 | US_ITS ---
STUDY: ABDOMINAL ULTRASOUND - RIGHT UPPER QUADRANT; ELASTOGRAPHY REASON FOR VISIT: Female, 48 years old. Fatty infiltration of the liver. TECHNIQUE: Ultrasound evaluation of the right upper quadrant was performed with real-time and static solomon-scale imaging. Point quantification shear wave elastography was performed (Border Stylo). TECHNICAL QUALITY: Adequate. COMPARISON: None. FINDINGS: Liver: The liver is enlarged and measures 18.7 cm. There is increased echogenicity consistent with fatty infiltration. Findings suggestive of focal fatty sparing in the region of the gallbladder fossa. The bile ducts are within normal limits. There is hepatic color flow. The direction of portal flow is hepatopetal. There is no demonstrated mass lesion. Median liver stiffness measured 5.8 kPa. Gallbladder: The patient is status post cholecystectomy. Common Bile Duct (C.B.D.): The common bile duct measures 5.3 mm. Pancreas: There is normal echogenicity of the visualized pancreas. There is no demonstrated pancreatic mass or cyst. Right Kidney: Normal size of the right kidney. The right kidney measures 11.2 cm x 5.8 cm x 5.3 cm. Normal renal cortex. The right cortex measures 1.7 cm. There is no demonstrated renal mass or cyst. There is no right hydronephrosis. US/ABD Limited w/ Elastography IMPRESSION: 1. Liver stiffness measures 5.8 kPa compatible with F0-F1 (Normal to mild liver fibrosis) Metavir score. Electronically Signed: Simon Ndiaye MD at 9:40 EDT ,
== END 2023-06-08 23:59 | disposition home or self-care (01) ==
LOC: US 08:44
PROVIDERS: PCP Family Medicine; Referring Provider Family Medicine; Visit Provider Family Medicine
DX: K76.0 Fatty (change of) liver, not elsewhere classified (principal)
CPT/HCPCS: 76705; 76981

== ENCOUNTER → 2023-09-06 | Outpatient (CLI) | payer BC, SELFPAY ==
--- NOTE | 2023-09-06 | EMB_PTH ---
PATIENT: JOSIAH ADEN LOC: LAB U#:[id number] AGE/SX: 48/F ROOM: RE09/06/[address]: Dr. Janae Roper MD : 1975 BED: DIS: 09/06/2023 SPEC #: [id number] RECD: 09/06/23 17:23 STATUS: KENIA ANDER #: [id number] KYLEIGH: 09/06/23 00:[address]: Janae Roper DEPT: SURGICAL PATHOLOGY RECD BY: Karin Mas ENTERED: 09/09/23 08:59 SP TYPE: ENDOM BX/C DAVIS DR: Dr. Eric Cordoba MD Tissues: Endometrium, NOS Procedures: Surgery Specimen Level IV HEADER OPERATION: Endometrial biopsy PRE-OP DIAGNOSIS: Abnormal uterine bleeding TISSUE SUBMITTED: Endometrial lining MICROSCOPIC DIAGNOSIS Endometrial biopsy: Proliferative endometrium. RADHA/ 09/10/2023 MICROSCOPIC DESCRIPTION Slides are reviewed. GROSS DESCRIPTION Received is one container labeled with the patient's name and not further designated. The specimen consists of multiple irregular fragments of hemorrhagic soft tissue that in aggregate measure 3.0 x 2.5 x 0.2 cm. The specimen is totally submitted in one cassette. RADHA/ 09/09/2023 TC:4 CPT:35439
[2023-09-06 17:34] LABS: Thyroid Stim Hormone (TSH) 3.07 uIU/mL (0.358-3.74)
[2023-09-11 18:08] LABS: HPV APTIMA, High Risk Negative (Negative)
== END | disposition home or self-care (01) ==
PROVIDERS: PCP Family Medicine; Referring Provider Obstetrics & Gynecology; Visit Provider Obstetrics & Gynecology
DX: Z12.4 Encounter for screening for malignant neoplasm of cervix (principal); N93.9 Abnormal uterine and vaginal bleeding, unspecified
CPT/HCPCS: 36415; 84443; 87624; 88175; 88305; G0145

== ENCOUNTER → 2023-09-11 | Outpatient (CLI) | payer BC, SELFPAY ==
--- NOTE | 2023-09-11 14:12 | US_ITS ---
EXAM: US PELVIS TRANSABDOMINAL AND TRANSVAGINAL, COMPLETE CLINICAL INDICATION: Abnormal uterine bleeding TECHNIQUE: Transabdominal and transvaginal pelvic ultrasound was performed with grayscale and color Doppler imaging. Transvaginal imaging was used for better evaluation of the endometrium and adnexa. COMPARISON: Unenhanced CT October 31, 2018. 2 metallic densities in the left iliac fossa and left adnexa respectively noted on prior CT. Tiny nonobstructing stone was noted in the right kidney. FINDINGS: UTERUS/CERVIX: Multiple small nabothian cervical cysts are noted on transvaginal exam. 10.8 cm x 6.6 cm x 5.8 cm. There is no uterine mass. Heterogeneous myometrium. Measured 9 mm fundal endometrial stripe thickness on transabdominal exam, measured 1.5 cm endometrial thickness on transvaginal exam. RIGHT OVARY: 4.2 cm x 2.7 cm x 3.4 cm with small follicle of 2 cm x 1.5 cm x 1.9 cm and 1.7 cm x 1.2 cm x 1.4 cm paraovarian cyst measured on transvaginal exam. Non-enlarged, normal echogenicity. Blood flow is present in the right ovary. LEFT OVARY: Not identified. No suspicious left adnexal mass. FREE FLUID: None. BLADDER: Unremarkable as visualized. 14.6 cm x 8.3 cm x 12.5 cm on transabdominal exam. Wall is normal thickness for degree of distention. US/Pelvic w/ Transvaginal IMPRESSION: Borderline thickened 1.5 cm uterine endometrium. Correlate with the secretory phase of menstrual cycle, nonspecific. Very heterogeneous myometrium without discrete mass. Numerous small nabothian cervical cysts. 2 cm right ovarian follicle and 1.7 cm right paraovarian cyst. Not suspicious by size criteria. Electronically Signed: Linette Perez MD at 6:00 EDT ,
== END | disposition home or self-care (01) ==
PROVIDERS: PCP Family Medicine; Referring Provider Obstetrics & Gynecology; Visit Provider Obstetrics & Gynecology
DX: N93.9 Abnormal uterine and vaginal bleeding, unspecified (principal)
CPT/HCPCS: 76830; 76856

== ENCOUNTER 2023-10-01 10:36 | Day surgery (SDC) | payer BC, SELFPAY ==
[2023-10-01] VITALS (8 sets, daily range): BP systolic 118–137; BP diastolic 63–83; PULSE 67–74; RESP 16–18; TEMP 36.2–36.7; O2SAT 95–100; BMI 35.3
--- NOTE | 2023-10-01 | EMB_PTH ---
PATIENT: JOSIAH ADEN [place] [facility] [id number] AGE/SX: 48/F ROOM: RE10/01/[address]: Dr. Janae Roper MD : 1975 BED: DIS: 10/01/2023 SPEC #: [id number] RECD: 10/01/23 13:30 STATUS: KENIA ANDER #: [id number] KYLEIGH: 10/01/23 00:[address]: Janae Roper DEPT: SURGICAL PATHOLOGY RECD BY: Mara Vences ENTERED: 10/01/23 13:50 SP TYPE: ENDOM BX/C DAVIS DR: Dr. Eric Cordoba MD Tissues: Endometrium, NOS Procedures: Surgery Specimen Level IV HEADER OPERATION: Hysteroscopy, D&C, Jazlyn PRE-OP DIAGNOSIS: Abnormal uterine bleeding TISSUE SUBMITTED: Endometrial curettings MICROSCOPIC DIAGNOSIS Endometrial curettings: Disordered proliferative endometrium to simple endometrial hyperplasia without atypia and with glandular and stromal breakdown. Fragments of benign ectocervical and endocervical mucosa with chronic inflammation. See comment. 10/02/2023 COMMENT Clinical correlation and appropriate follow up are necessary. MICROSCOPIC DESCRIPTION Slides are reviewed. GROSS DESCRIPTION Received in fixative is one container labeled with the patient's name and designated Endometrial curettings. The specimen consists of multiple irregular fragments of hemorrhagic mucoid tissue that in aggregate measure 5.0 x 3.0 x 0.2 cm. The specimen is totally submitted in two cassettes. 10/01/2023 TC:5 CPT:68525
--- NOTE | 2023-10-01 11:21 | HP.PCM_ITS ---
History and Physical Date of Admission: 10/01/23 Intake Vital Signs 06/22/2113:46 09/05/2414:27 09/05/2414:29 Height 5 ft 6 in 5 ft 6 in 5 ft 6 in Weight: 183 lb 6 oz BMI 29.5 BP 128/80 H Intake Visit Reasons[facility] Equipment Washer Required: No Is patient in pain?: No Allergies No Known Allergies Allergy (Verified 09/06/23 15:18) Medications ?Medication ?Instructions ?Recorded ?Confirmed ?Type metformin 500 mg tablet 500 mg PO DAILY dm 10/27/14 09/06/23 History spironolactone 50 mg tablet 50 mg PO DAILY bp 10/27/14 09/06/23 History acetaminophen 500 mg tablet 500 mg PO Q6H PRN 03/14/22 09/06/23 History (Tylenol Extra Strength) ibuprofen 200 mg tablet 220 mg PO Q6H PRN 03/14/22 09/06/23 History amlodipine 10 mg tablet mg PO 10/18/22 09/06/23 History cholecalciferol (vitamin D3) 50 PO 10/18/22 09/06/23 History mcg (2,000 unit) capsule hydroxyzine HCl 25 mg tablet mg PO 10/18/22 09/06/23 History ramipril 1.25 mg capsule mg PO 10/18/22 09/06/23 History Is last menstrual period known: Yes Last Menstrual Period: 07/13/23 Post menopausal: No Patient : No : No Control Method: Tubal PFSH Medical History (Updated 09/06/23 @ 16:[address] 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 she will bleed through proteciton in an hour. she has some hot flashes. she doesn't sleep very well. Female Reproductive History Last Menstrual Period: 07/13/23 Cycle Length: 21-35 Bleeding Duration: 6 Frequency of changing protection: 1 hr Questions: metorrhagia: No, sexually active: Yes, dyspareunia: No and PCB: No Menopausal Symptoms: No hot flashes, No night sweats, No weight change, No mood changes, No difficulty concentrating, No sleep problems and No change in libido History 2 Elective abortions Hx Para 2 Spontaneous abortions Hx # Term Pregnancies Ectopic pregnancies Hx # Pregnancies Multiple births # of living children 2 Past Pregnancies Del. Date Name GA/Weeks Outcome Route Bth Weight Gen Labor Lgth Anesthesia Del [facility] Provider FOB 01/30/98 Luis Daniel 08/04/01 Shirin Carl Constitutional: Reports as per HPI; Denies fatigue, increased appetite, poor appetite, night sweats, weight gain or weight loss ENT ENT: Reports system reviewed and no additional complaints, except as documented Cardio Card: Denies chest pain Resp Resp: Denies cough or dyspnea GI GI: Reports as per HPI; Denies abdominal pain, bloating, constipation, nausea or vomiting : Reports as per HPI and other; Denies difficulty voiding, dysuria, hematuria, hot flashes, nipple discharge, pelvic pain, prolapse symptoms, urinary frequency, urinary incontinence, urinary urgency, vaginal discharge, vaginal dryness, vaginal odor or vaginal pruritus Musc Musc: Denies arthralgias, back pain or muscle weakness Skin Skin/Breast: Denies changing lesions, breast mass, breast pain, breast skin changes or nipple discharge Neuro Neuro: Reports system reviewed and no additional complaints, except as documented Psych Psych: Denies anxiety, change in libido, depression or difficulty concentrating Endo Endo: Denies cold intolerance, excessive sweating, heat intolerance or polydipsia Jonny/Lymph Hematologic/Lymphatic: Denies easy bleeding, Denies easy bruising and Denies lymphadenopathy Exam Const General: cooperative, healthy appearing, comfortable, no acute distress and well developed Orientation: alert [facility] Head: normal to inspection and normocephalic Ears: hearing grossly normal bilaterally and external ears normal Nose: external nose normal and nares normal Face and sinus: normal facial exam Neck Neck: normal visual inspection and no lymphadenopathy Thyroid: thyroid normal Chest Chest palpation & inspection: normal inspection of the chest Resp Effort & Inspection: normal respiratory effort Auscultation: clear to auscultation bilaterally Cardio Rate: regular rate Rhythm: regular rhythm Heart Sounds: S1 normal and S2 normal GI Inspection: normal to inspection and non-distended Palpation: soft and no hepatosplenomegaly General: bladder normal to palpation External Female Exam: normal external appearance and normal appearance of the urethra Urethra: normal appearance of the urethra, normal palpation and no discharge Speculum Exam - Vagina: normal appearance of the vagina and normal vaginal discharge Speculum Exam - Cervix: normal appearance of the cervix and nontender Bimanual Exam- Vagina & Uterus: normal bimanual exam, uterine size normal, bladder normal to palpation, uterine shape normal, No tender, uterine mobility normal, consistency normal, normal palpation and non-tender Bimanual Exam- Adnexa, other: normal adnexae, adnexae mobile, no masses and normal Pelvic Support: normal Musc Other: gross motor intact no deficits, full bilateral strength Skin General: no rashes or lesions noted Neuro General: patient alert, patient awake, moves all extremities and no focal motor deficits Motor: muscle tone normal throughout Extrem General: normal to inspection and no pedal edema Psych Appearance: grossly normal Mental Status: mental status grossly normal Affect: normal affect Speech and Movement: speech and movement normal Coding Level of Care Code Off vis,new,level 4 Diagnoses Abnormal uterine bleeding N93.9 Assessment and Plan Assessment and Plan (1) Abnormal uterine bleeding: Status: Acute Comment: cbc WNL ordered tsh and pelvic US, if normal plan christie Plan if normal pelvi cultrasound plan christie ablation. After discussing the patient's diagnosis and treatment plan options, patient wishes to proceed with surgical management. I have discussed with the patient the risks, benefits, and alternatives of the procedure which include but are not limited to risks of anesthesia, bleeding, infection, possible damage to bowel, bladder, or surrounding vasculature which could lead to additional surgery to evaluate any complications. Patient agrees to procedure and wishes to proceed. ACOG/uptodate references given for additional information regarding procedure. UPDATE- I have seen the patient and performed any clinically relevant updates to the history and physical exam. Janae Roper MD
[2023-10-01] MEDS: Lactated Ringers 1,000 ML 15 ML IV (11:30)
[2023-10-01 11:37] LABS: Hematocrit 39.9 % (37-47); Hemoglobin 13.4 g/dL (12.0-15.0); Mean Corp Hgb Conc 33.6 g/dL (32-36); Mean Corpuscular Hgb 30.7 pg (27.0-32.0); Mean Corpuscular Volume 91.5 fL (81-99); Mean Platelet Vol. 10.6 fl (6.2-12.0); Platelet Count 301 K/mm3 (150-450); RBC Distribution Width CV 12.5 % (11.6-14.6); RBC Distribution Width SD 41.5 fl (35.1-43.9); Red Blood Count 4.36 M/mm3 (4.2-5.4); White Blood Count 10.3 K/mm3 (4.4-11.0)
[2023-10-01 11:40] LABS: Bedside Glucose 107 mg/dL (74-106)
--- NOTE | 2023-10-01 11:45 | PCM.PRE.AN2 ---
ASA Classification* ASA Classification ASA Classification: 2 Assessment & Plan Anesthesia* Anesthesia Assessment Anesthesia Assessment: Discussed sedation and/or anesthesia options, risks, benefits, and alternatives with patient/parents/legal guardian/POA. Questions invited. The patient/parents/legal guardian/POA seems to understand and agrees to proceed with anesthesia plan. Reviewed the physical assessment, medical history, allergy history and patient home medications list prior to surgery/procedure/anesthetic and documented any changes. Performed airway and anesthesia risk assessments. Anesthesia Type Anesthesia Type: MAC History Source History Obtained from:: Patient and Chart Anesthesia Focused Assessment* Temperature: 98.1 F Pulse Rate: 68 Blood Pressure: 137/83 Respiratory Rate: 18 Pulse Ox: 100 Oxygen Delivery Method: Room Air Airway Assessment Mouth opens: >3 cm Mallampati Score: IV Teeth Condition: Caps/Crowns (Crowns on molars. All tight) Neck Range of motion (ROM): Full ROM Focused Labs Anesthesia Preop lab: CBC WBC 10.3 K/mm3 (4.4-11.0) 10/01/23 11:27 RBC 4.36 M/mm3 (4.2-5.4) 10/01/23 11:27 Hgb 13.4 g/dL (12.0-15.0) 10/01/23 11:27 Hct 39.9 % (37-47) 10/01/23 11:27 Plt Count 301 K/mm3 (150-450) 10/01/23 11:27 CHEMISTRY Potassium 3.8 mmol/L (3.5-5.1) 05/14/23 14:55 Sodium 136 mmol/L (136-145) 05/14/23 14:55 BUN 7 mg/dL (7-18) 05/14/23 14:55 Creatinine 0.72 mg/dL (0.55-1.02) 05/14/23 14:55 Glucose 209 mg/dL (74-106) H 05/14/23 14:55 POC Glucose 107 mg/dL (74-106) H 10/01/23 11:18 TSH 3.07 uIU/mL (0.358-3.74) 09/06/23 16:35 COAG Urine Test Negative Negative 10/31/18 13:30 Pre-Assessment Diagnosis/Proposed Procedure Planned Operative Procedure(s): HYSTEROSCOPY D&C NAOMI ABLATION Anesthesia History Anesthesia History - construction project coordinator: Anesthesia History - construction project coordinator Hx Hospitalization No 09/27/23 11:23 Any Problems With Anesthesia No 09/27/23 11:23 Cholinesterase deficiency No 09/27/23 11:23 You/Your Family Experience No 09/27/23 11:23 fever (hyperthermia) with Relationship Recent Exposure to Contagious No 10/01/23 11:14 Disease Does patient have nerve No 09/27/23 11:23 stimulator Patient instructed to have device shut off --Does patient have Pacemaker No 10/01/23 11:15 or ICD? When Was Last Pacemaker Check QUESTION #4 FULL TEXT: You/Your Family Experience fever (hyperthermia) with Anesthesia Last Oral Intake Last Oral intake: Last Oral Intake NPO since 19:30 10/01/23 11:15 Meds taken in AM with sips of No 10/01/23 11:15 water? Meds patient instructed to take am of surgery PONV PONV - construction project coordinator: PONV - construction project coordinator Female Yes 09/27/23 11:23 HX of Motion Sickness No 09/27/23 11:23 HX of N/V After Surgery No 09/27/23 11:23 Non-Smoker Yes 09/27/23 11:23 Duration of Surgery greater No 09/27/23 11:23 than 60 minutes Number of Risk Factors 2 09/27/23 11:23 PONV Score Moderate Risk 09/27/23 11:23 Height & Weight Height & Weight: Anesthesia: Height & Weight Height 5 ft 8 in 10/01/23 11:15 Weight: 105.415 kg 10/01/23 11:15 Body Mass Index (BMI) 35.3 10/01/23 11:15 Respiratory Assessment Respiratory Assessment - construction project coordinator: Respiratory Tract Infection Hx - construction project coordinator Hx Respiratory Tract Infection No 09/27/23 11:23 STOP Sleep Apnea STOP Sleep Apnea - construction project coordinator: STOP Sleep Apnea - construction project coordinator Hx Hypertension Yes: CONTROLLED WITH MEDS 09/27/23 11:23 Hx Sleep Apnea No 09/27/23 11:23 CPAP No 10/31/18 13:14 BIPAP No 10/31/18 13:14 Do you snore loudly (louder Yes 09/27/23 11:23 than talking or can be heard Do you often feel tired/ Yes 09/27/23 11:23 fatigued/ sleepy during daytime? Has anyone observed you stop No 09/27/23 11:23 breathing during sleep? STOP Results Positive 09/27/23 11:23 QUESTION #5 FULL TEXT : Do you snore loudly (louder than talking or can be heard through closed doors)? Tobacco Use History Tobacco Use History - construction project coordinator: Tobacco Use History - construction project coordinator Tobacco Use Smoking Status Never smoker 09/27/23 11:23 Hx Tobacco Use No 09/27/23 11:23 Years Smoking Packs Smoked per Day Smoking Cessation Date was within the last 15 years Hx Smoking Cessation Date Hx Smoking Cessation Counseling Hematologic Medial History Hematologic Hx - construction project coordinator: Hematologic Medical Hx - motion designer Hx of Blood Transfusion No 09/27/23 11:23 Hx of Transfusion in last 3 No 09/27/23 11:23 Months Date of Last Transfusion (if within last 3 months) Ever experience any problems No 09/27/23 11:23 with transfusion(s)? Specify any problems Hx of Preganancy in last 3 No 09/27/23 11:23 Months Nurse Filling Out Transfusion DSCHRIBER 09/27/23 11:23 & Questions: Date: 09/27/23 09/27/23 11:23 Time: 11:24 09/27/23 11:23 Patient unable to answer at this time (ie. confused, unrespo /Reproduction History /Reproductive History - construction project coordinator: /Reproductive Hx- construction project coordinator Hx Now No 09/27/23 11:23 Gestational Age (in weeks): EDC: Hx Hx Para Hx Section SAB No 09/27/23 11:23 Active Medications Active Medications: Current Medications Generic Name Dose Route Start Last Admin Trade Name Freq PRN Reason Stop Dose Admin Lactated Ringer's 1,000 mls @ 15 mls/hr 10/01/23 10:45 10/01/23 11:30 IV 15 mls/hr .Q48H PEYMAN Administration PFSH Medical History Wears glasses Fatty liver Migraine headache Dietary restriction Non-smoker History of pain when walking History of echocardiogram History of stress test NAFLD (nonalcoholic fatty liver disease) Prediabetes RLQ discomfort Diabetes HTN (hypertension) Home Medications ?Medication ?Instructions ?Recorded ?Last Taken ?Type metformin 500 mg tablet 500 mg PO BID dm 10/27/14 09/30/23 History spironolactone 50 mg tablet 50 mg PO DAILY bp 10/27/14 09/30/23 History acetaminophen 500 mg tablet 500 mg PO Q6H PRN pain 03/14/22 Unknown History (Tylenol Extra Strength) amlodipine 10 mg tablet 10 mg PO DAILY 10/18/22 09/30/23 History hydroxyzine HCl 25 mg tablet 25 mg PO .PRN PRN anxiety 10/18/22 Unknown History ramipril 1.25 mg capsule 1.25 mg PO DAILY 10/18/22 09/30/23 History Allergy/AdvReac Type Severity Reaction Status Date / Time No Known Allergies Allergy Verified 10/01/23 11:10 Family History Grandmother Cancer cervical Father Rheumatic fever with heart involvement Surgical History S/P right rotator cuff repair S/P tubal ligation S/P tonsillectomy S/P laparoscopic cholecystectomy Social History adopted: No household members: spouse, children and other details: mom number of children: 2 current occupational status: employed 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
[2023-10-01 11:46] LABS: Internal QC Validated? YES +Cl - CLEAR BKGD; Pregnancy, Urine Negative Negative; Record Kit Lot#,Urine Preg HCG0000772476
[2023-10-01] MEDS: Lidocaine 1% (20 ml mdv) 20 ML Vial (12:34)
--- NOTE | 2023-10-01 12:51 | PCM.OPRPT ---
Problems Associated Problem List Diagnoses (1) Abnormal uterine bleeding: Report of Operation Date of Procedure: 10/01/23 Pre-Operative Diagnosis: see problem list Post-Operative Diagnosis: same Surgery/Procedure Performed:: d and c hysteroscopy jazlyn ablation Description of Surgical Findings:: nl uterine cavity Surgeon: Janae Roper upholsterer assembly line: None Type of Anesthesia: Local MAC Special Medications: none Specimen's removed: emc Drains: none Estimated Blood Loss (mL): 25 Fluids Replaced: crystalloid Description of Procedure: Patient was prepped and draped in a normal sterile fashion under MAC anesthesia. A weighted speculum was placed in the vagina and the anterior lip of the cervix was grasped with a single-tooth tenaculum. A paracervical block was placed with 1% lidocaine. Cervix was progressively dilated to allow passage of a 5 mm hysteroscope. The lining was fully visualized and noted to have thickened lining . Uterine sounded to 9.5 cm. Curettage was performed and tissue removed , sent to pathology. The Jazlyn device was opened and the cavity length was found to be 5.5 cm. Device was inserted into the uterus and balloon inflated and device deployed. Integrity of the cavity was confirmed and a 2 minute treatment cycle was completed without complication. All instruments were removed from the vagina and excellent hemostasis was noted. Patient was awoken and taken to recovery in stable condition. Grafts/Implants Used: none Procedure Start Time: 12:38 Procedure Stop Time: 12:43 Complications none Admit VTE Documentation VTE Present on Admission: No VTE Mechan Device Prophylaxis: SCD's Multi Select Codes Urinary/Genital Urinary/Genital CPT Codes: 99535 Jazlyn/Novasure
--- NOTE | 2023-10-01 12:55 | PCM.DC ---
Discharge Instructions Diet Discharge Diet: No restrictions Activity Discharge Activity: Return to Normal Activity, May Shower and May Take a Tub Bath (after 1 week) May resume sexual activity in: 1-2 weeks Weight Bearing Status: Weight bearing as tolerated Lifting Restrictions: none Dressing / Incision Call your doctor if you observe: Fever of 101 or Higher, Using more than 1 pad per hour, Shortness of breath and Uncontrolled pain Follow Up Care Please Follow Up With: Janae Roper MD When: Call [phone] to schedule appointment. Test Results: Test results from this visit will be discussed in further detail at your follow-up appointment, if applicable. Discharge Plan Admission Attending Provider: Janae Roper Primary Care Provider: Eric Cordoba Instructions Print Language: [place] Discharge Orders/Prescriptions Prescriptions: No Action acetaminophen [Tylenol Extra Strength] 500 mg tablet 500 mg PO Q6H PRN (Reason: pain) ramipril 1.25 mg capsule 1.25 mg PO DAILY amlodipine 10 mg tablet 10 mg PO DAILY Patient Comments: TAKE 1 TABLET BY MOUTH EVERY DAY hydroxyzine HCl 25 mg tablet 25 mg PO .PRN PRN (Reason: anxiety) Patient Comments: 1 TABLET AT BEDTIME FOR SLEEP, ALLERGIES, AND ANXIETY metformin 500 MG tablet 500 mg PO BID spironolactone 50 MG tablet 50 mg PO DAILY Patient Comments: Referrals / Follow Up: Eric Cordoba MD [Primary Care Provider] - Disposition Disposition (needs filled in before D/C Order can be placed): Home, Self Care
--- NOTE | 2023-10-01 13:01 | PCM.POST.ANE ---
Anesthesia: Postop Eval I Current Vital Signs Temperature: 97.8 F Pulse Rate: 74 Blood Pressure: 118/63 Respiratory Rate: 16 Pulse Ox: 100 Oxygen Delivery Method: Room Air Assessment Airway patent: Yes Spontaneous unlabored respirations: Yes Mental status: Asleep nausea: No Vomiting: No Anesthesia Complication: No Fluid Hydration Crystalloid volume administer (ml): 700 Total IV fluid infused: 700 Progress Note Anesthesia document: Postop Eval 1 completed: Yes
[2023-10-01] MEDS: HYDROcodone Bitartrate/Apap 5/325 Tablet PO (13:34)
--- NOTE | 2023-10-01 16:58 | POSTOPAN2_ITS ---
Anesthesia Postop Eval I Sum Postop Eval Completion status Anesthesia document: Postop Eval 1 completed: Yes Anesthesia Postop Eval I Summary Anesthesia Postop Eval I Summary: Anesthesia Postop Eval I: Assessment Summary Airway patent Yes 10/01/23 13:01 [email or web address] Spontaneous unlabored Yes 10/01/23 13:01 [email or web address].[email or web address] respirations Mental status Asleep 10/01/23 13:01 [email or web address].[email or web address] nausea No 10/01/23 13:01 OENOLOGIST.BRENDA Vomiting No 10/01/23 13:01 OENOLOGISTBOBBY Anesthesia Postop Eval I: Fluid Summary Crystalloid volume administer 700 10/01/23 13:01 [email or web address].BRENDA (ml) Colloids volume administered ( ml) Blood Product volume administered (ml) Total IV fluid infused 700 10/01/23 13:01 JEFF Anesthesia Postop Eval I: Summary Notes Anesthesia Complication No 10/01/23 13:01 JEFF Anesthesia Complication Comment: Post-operative progress note Anesthesia: Postop Eval II Evaluation Mental status: Awake and Calm Pain Level: 1 nausea: No Vomiting: No
--- NOTE | 2023-10-01 16:58 | PCM.POSTANE2 ---
Anesthesia Postop Eval I Sum Postop Eval Completion status Anesthesia document: Postop Eval 1 completed: Yes Anesthesia Postop Eval I Summary Anesthesia Postop Eval I Summary: Anesthesia Postop Eval I: Assessment Summary Airway patent Yes 10/01/23 13:01 SHEET METAL SMITH.[email or web address] Spontaneous unlabored Yes 10/01/23 13:01 SHEET METAL SMITH.[email or web address] respirations Mental status Asleep 10/01/23 13:01 SHEET METAL SMITH.BRENDA nausea No 10/01/23 13:01 SHEET METAL SMITH.BRENDA Vomiting No 10/01/23 13:01 SHEET METAL SMITHBOBBY Anesthesia Postop Eval I: Fluid Summary Crystalloid volume administer 700 10/01/23 13:01 SHEET METAL SMITH.BRENDA (ml) Colloids volume administered ( ml) Blood Product volume administered (ml) Total IV fluid infused 700 10/01/23 13:01 JEFF Anesthesia Postop Eval I: Summary Notes Anesthesia Complication No 10/01/23 13:01 JEFF Anesthesia Complication Comment: Post-operative progress note Anesthesia: Postop Eval II Evaluation Mental status: Awake and Calm Pain Level: 1 nausea: No Vomiting: No
== END 2023-10-01 13:56 | disposition home or self-care (01) ==
LOC: SDC 10:37 → AC 10:38
PROVIDERS: PCP Family Medicine; Referring Provider Obstetrics & Gynecology; Visit Provider Obstetrics & Gynecology
PROC: 0U5B8ZZ Destruction of Endometrium, Via Natural or Artificial Opening Endoscopic (ICD-10-PCS; CPT 58558; principal; 2023-10-01 12:15)
DX: N93.9 Abnormal uterine and vaginal bleeding, unspecified (principal); E11.9 Type 2 diabetes mellitus without complications; Z79.84 Long term (current) use of oral hypoglycemic drugs; I10 Essential (primary) hypertension
CPT/HCPCS: 58563; 81025; 82962; 85027; 86850; 86900; 86901; 88305; J7120; J2405

== ENCOUNTER → 2023-10-21 | Outpatient (CLI) | payer BC, SELFPAY ==
--- NOTE | 2023-10-21 15:53 | VDLE_ITS ---
Reason For Study: Left leg pain RIGHT LEFT CFV is compressible, spontaneous, phasic, GSV is normal. competent and demonstrates normal CFV is compressible, spontaneous, phasic, augmentation. competent, and demonstrates normal Procedure augmentation. This is a venous duplex using B-mode, color FV is compressible, spontaneous, phasic, flow and spectral Doppler. competent and demonstrates normal Exam performed in department. augmentation. A preliminary report was called and/or faxed POP V is compressible, spontaneous, phasic, to Dr. Cordoba. competent and demonstrates normal augmentation. T/P Trunk is compressible. PTV is compressible. LT PerV is compressible. VL/Venous Duplex US, Unilateral Interpretation Summary Deep veins of the left lower extremity are patent and compressible segmentally. There is no evidence of left lower extremity deep vein thrombosis. The left great saphenous vein christopher ears patent and compressible segmentally. Ordering Physician: Eric Cordoba Referring Physician: Eric Cordoba Performed By: Susannah Miller RVT
== END | disposition home or self-care (01) ==
LOC: CVS 15:51
PROVIDERS: PCP Family Medicine; Referring Provider Family Medicine; Visit Provider Family Medicine
DX: M79.662 Pain in left lower leg (principal)
CPT/HCPCS: 93971

== ENCOUNTER 2023-11-12 05:27 | Day surgery (SDC) | payer BC, SELFPAY ==
[2023-11-06 13:27] LABS: Hematocrit 40.4 % (37-47); Hemoglobin 13.2 g/dL (12.0-15.0); Mean Corp Hgb Conc 32.7 g/dL (32-36); Mean Corpuscular Hgb 30.8 pg (27.0-32.0); Mean Corpuscular Volume 94.4 fL (81-99); Mean Platelet Vol. 10.1 fl (6.2-12.0); Platelet Count 330 K/mm3 (150-450); RBC Distribution Width CV 12.9 % (11.6-14.6); RBC Distribution Width SD 44.4 fl (35.1-43.9); Red Blood Count 4.28 M/mm3 (4.2-5.4); White Blood Count 13.1 K/mm3 (4.4-11.0)
[2023-11-06 13:52] LABS: Anion Gap 3 (5-15); BUN 18 mg/dL (7-18); Calcium,Total 9.9 mg/dL (8.5-10.1); Chloride 102 mmol/L (98-107); Creatinine, Serum 0.78 mg/dL (0.55-1.02); EST Glomerular Filtration Rate 83 mL/min (>60); Est Glom Filt Rate - Afr Amer 101 mL/min (>60); Glucose 112 mg/dL (74-106); Potassium 4.2 mmol/L (3.5-5.1); Sodium Level 138 mmol/L (136-145)
[2023-11-06 14:48] LABS: Hemoglobin A1c 5.8 % (3.8-5.6)
--- NOTE | 2023-11-11 17:38 | HP.PCM_ITS ---
History and Physical Date of Admission: 11/11/23 [facility] [address], [address] [place] [address] OFFICE VISIT Date of Service: 10/21/23 MR#: [id number] Acct: [id number] Name: JOSIAH ADEN Rep #: [id number] : 1975 Provider: Dr. Janae Roper MD Age/Sex: 48/F Location: [facility] Status: Signed Intake Vital Signs 10/15/2412:44 10/21/2407:04 10/21/2407:06 Height 5 ft 8 in 5 ft 8 in Weight: 237 lb 4 oz BP 130/83 H Blood Pressure Location Rt brachial Position Sitting Pulse 78 Intake Visit Reasons: PELVIC EXAM PER License Examiner Required: No Allergies No Known Allergies Allergy (Verified 10/21/23 08:04) Medications ?Medication ?Instructions ?Recorded ?Confirmed ?Type metformin 500 mg tablet 500 mg PO BID dm 10/27/14 10/21/23 History spironolactone 50 mg tablet 50 mg PO DAILY bp 10/27/14 10/21/23 History acetaminophen 500 mg tablet 500 mg PO Q6H PRN pain 03/14/22 10/21/23 History (Tylenol Extra Strength) amlodipine 10 mg tablet 10 mg PO DAILY 10/18/22 10/21/23 History hydroxyzine HCl 25 mg tablet 25 mg PO .PRN PRN anxiety 10/18/22 10/21/23 History ramipril 1.25 mg capsule 1.25 mg PO DAILY 10/18/22 10/21/23 History PFSH Medical History Wears glasses Fatty liver Migraine headache Dietary restriction Non-smoker History of pain when walking History of echocardiogram History of stress test NAFLD (nonalcoholic fatty liver disease) Prediabetes RLQ discomfort Diabetes HTN (hypertension) Surgical History H/O dilation and curettage S/P right rotator cuff repair S/P tubal ligation S/P tonsillectomy S/P laparoscopic cholecystectomy Family History Grandmother Cancer cervicalFather Rheumatic fever with heart involvement Social History adopted: No household members: spouse, children and other details: mom number of children: 2 current occupational status: employed 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 I discussed with her the risk of delayed diagnosis of cancer, recommended progesterone treatment or hysterectomy for definitive treatment. patient requesting hysterectomy. she denies any pelvic pain, fever, co some brown discharge since ablation. History 2 Elective abortions Hx Para 2 Spontaneous abortions Hx # Term Pregnancies Ectopic pregnancies Hx # Pregnancies Multiple births # of living children 2 Past Pregnancies Del. Date Name GA/Weeks Outcome Route Bth Weight Gen Labor Lgth Anesthesia Del [facility] Provider FOB 01/30/98 Luis Daniel 08/04/01 Shirin JOHNSON Const Constitutional: Denies fatigue, fever(s), headache(s), increased appetite, poor appetite, weight gain or weight loss Cardio Card: Denies chest pain Resp Resp: Denies cough or dyspnea GI GI: Reports as per HPI; Denies abdominal pain, constipation, nausea or vomiting : Reports as per HPI; Denies difficulty voiding, dysuria, nipple discharge, urinary frequency, urinary incontinence, urinary hesitancy, urinary urgency, vaginal discharge, vaginal dryness, vaginal odor or vaginal pruritus Skin Skin/Breast: Denies change in hair, breast mass, breast pain, breast skin changes or nipple discharge Exam Const General: cooperative, healthy appearing, comfortable, no acute distress and well developed Nutritional Appearance: average body habitus Orientation: alert HENMT Head: normal to inspection and normocephalic Neck Neck: normal visual inspection and trachea midline Thyroid: thyroid normal Resp Effort & Inspection: normal respiratory effort GI Inspection: normal to inspection and non-distended Palpation: soft and no hepatosplenomegaly General: bladder normal to palpation External Female Exam: normal external appearance and normal appearance of the urethra Urethra: normal appearance of the urethra, normal palpation and no discharge Speculum Exam - Vagina: normal appearance of the vagina and normal vaginal discharge Speculum Exam - Cervix: normal appearance of the cervix and nontender Bimanual Exam- Vagina & Uterus: normal bimanual exam, uterine size normal, bladder normal to palpation, uterine shape normal, No tender, uterine mobility normal, consistency normal, normal palpation and non-tender Bimanual Exam- Adnexa, other: normal adnexae, adnexae mobile, no masses and normal Pelvic Support: normal Skin General: no rashes or lesions noted Coding Level of Care Code Off vis,est,level 4 Diagnoses Abnormal uterine bleeding N93.9 Simple endometrial hyperplasia N85.01 Assessment and Plan Assessment and Plan (1) Abnormal uterine bleeding: Status: Acute Comment: cbc TSH US WNL; s/p d and c hysteroscopy christie-simple endometrial hyperplasia; proliferative endometrium (2) Simple endometrial hyperplasia: Status: Acute Comment: discussed diagnosis reviewed risk of previous ablation could delay diagnosis of cancer or limit full evaluation post treatment with progesterone. offered progesterone or hysterectomy treatment, patient requesting hyst. plan LAVHBS. Plan After discussing the patient's diagnosis and treatment plan options, patient wishes to proceed with surgical management. I have discussed with the patient the risks, benefits, and alternatives of the procedure which include but are not limited to risks of anesthesia, bleeding, infection, possible damage to bowel, bladder, or surrounding vasculature which could lead to additional surgery to evaluate any complications. Patient agrees to procedure and wishes to proceed. ACOG/uptodate references given for additional information regarding procedure. UPDATE- I have seen the patient and performed any clinically relevant updates to the history and physical exam. Janae Roper MD
[2023-11-12] VITALS (18 sets, daily range): BP systolic 100–149; BP diastolic 53–84; PULSE 68–98; RESP 16–18; TEMP 36.2–36.6; O2SAT 88–99; BMI 36.0
[2023-11-12 05:54] LABS: Internal QC Validated? YES +Cl - CLEAR BKGD; Pregnancy, Urine Negative Negative
[2023-11-12] MEDS: Lactated Ringers 1,000 ML 40 ML IV ×2 (06:06→08:38)
[2023-11-12] MEDS: Magnesium 1 GM over 15 mins IV (06:07)
[2023-11-12 06:09] LABS: Bedside Glucose 106 mg/dL (74-106)
[2023-11-12] MEDS: Phenazopyridine 95 MG Tablet 190 MG PO (06:09)
[2023-11-12] MEDS: Celecoxib 200 MG Capsule 400 MG PO (06:10)
[2023-11-12] MEDS: Acetaminophen 500 MG Tablet 1000 MG PO ×2 (06:10→14:54)
[2023-11-12] MEDS: Gabapentin 600 MG Tablet PO (06:11)
[2023-11-12] MEDS: dexAMETHasone 4 MG/ML Vial 8 MG IV (06:11)
[2023-11-12] MEDS: Enoxaparin 40 MG/0.4 ML Syringe SC (06:11)
[2023-11-12] MEDS: Scopolamine 1mg/72hr Patch 1 PATCH TD (06:22)
[2023-11-12] MEDS: Bupivacaine 0.25% 30 ML Vial (06:49)
--- NOTE | 2023-11-12 07:21 | PCM.PRE.AN2 ---
ASA Classification* ASA Classification ASA Classification: 2 Assessment & Plan Anesthesia* Anesthesia Assessment Anesthesia Assessment: Discussed sedation and/or anesthesia options, risks, benefits, and alternatives with patient/parents/legal guardian/POA. Questions invited. The patient/parents/legal guardian/POA seems to understand and agrees to proceed with anesthesia plan. Reviewed the physical assessment, medical history, allergy history and patient home medications list prior to surgery/procedure/anesthetic and documented any changes. Performed airway and anesthesia risk assessments. Anesthesia Type Anesthesia Type: General (see written pre anesthesia record for full assessment) Anesthesia Focused Assessment* Temperature: 97.4 F Pulse Rate: 68 Blood Pressure: 127/76 Respiratory Rate: 18 Pulse Ox: 98 Airway Assessment Mouth opens: >3 cm Mallampati Score: II Focused Labs Anesthesia Preop lab: CBC WBC 13.1 K/mm3 (4.4-11.0) H 11/06/23 13:05 RBC 4.28 M/mm3 (4.2-5.4) 11/06/23 13:05 Hgb 13.2 g/dL (12.0-15.0) 11/06/23 13:05 Hct 40.4 % (37-47) 11/06/23 13:05 Plt Count 330 K/mm3 (150-450) 11/06/23 13:05 CHEMISTRY Potassium 4.2 mmol/L (3.5-5.1) 11/06/23 13:05 Sodium 138 mmol/L (136-145) 11/06/23 13:05 Magnesium 2.0 mg/dL (1.6-2.6) 11/06/23 13:05 BUN 18 mg/dL (7-18) 11/06/23 13:05 Creatinine 0.78 mg/dL (0.55-1.02) 11/06/23 13:05 Glucose 112 mg/dL (74-106) H 11/06/23 13:05 POC Glucose 106 mg/dL (74-106) 11/12/23 05:50 TSH 3.07 uIU/mL (0.358-3.74) 09/06/23 16:35 COAG Urine Test Negative Negative 11/12/23 05:40 Pre-Assessment Diagnosis/Proposed Procedure Planned Operative Procedure(s): LAVH BSO Anesthesia History 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 When Was Last Pacemaker Check QUESTION #4 FULL TEXT: You/Your Family Experience fever (hyperthermia) with Anesthesia Last Oral Intake Last Oral intake: Last Oral Intake NPO since 03:30 11/12/23 05:59 Meds taken in AM with sips of No 11/12/23 05:59 water? Meds patient instructed to take am of surgery PONV PONV - hemstitching machine operator: PONV - hemstitching machine operator Female Yes 10/29/23 09:19 HX of Motion Sickness No 10/29/23 09:19 HX of N/V After Surgery Yes 10/29/23 09:19 Non-Smoker Yes 10/29/23 09:19 Duration of Surgery greater Yes 10/29/23 09:19 than 60 minutes Number of Risk Factors 4 10/29/23 09:19 PONV Score Severe Risk 10/29/23 09:19 Height & Weight Height & Weight: Anesthesia: Height & Weight Height 5 ft 8 in 11/12/23 05:59 Weight: 107.411 kg 11/12/23 05:59 Body Mass Index (BMI) 36.0 11/12/23 05:59 Respiratory Assessment Respiratory Assessment - hemstitching machine operator: Respiratory Tract Infection Hx - hemstitching machine operator Hx Respiratory Tract Infection No 10/29/23 09:19 STOP Sleep Apnea STOP Sleep Apnea - hemstitching machine operator: STOP Sleep Apnea - hemstitching machine operator Hx Hypertension Yes: CONTROLLED WITH MEDS 10/29/23 09:19 Hx Sleep Apnea No 10/29/23 09:19 CPAP No 10/29/23 09:19 BIPAP No 10/29/23 09:19 Do you snore loudly (louder Yes 10/29/23 09:19 than talking or can be heard Do you often feel tired/ No 10/29/23 09:19 fatigued/ sleepy during daytime? Has anyone observed you stop No 10/29/23 09:19 breathing during sleep? STOP Results Positive 10/29/23 09:19 QUESTION #5 FULL TEXT : Do you snore loudly (louder than talking or can be heard through closed doors)? 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 Specify any problems Hx of Preganancy in last 3 No 10/29/23 09:19 Months Nurse Filling Out Transfusion DSCHRIBER 10/29/23 09:19 & Questions: Date: 10/29/23 10/29/23 09:19 Time: 09:21 10/29/23 09:19 Patient unable to answer at this time (ie. confused, unrespo /Reproduction History /Reproductive History - hemstitching machine operator: /Reproductive Hx- hemstitching machine operator Hx Now Gestational Age (in weeks): EDC: Hx Hx Para Hx Section SAB No 10/29/23 09:19 Active Medications Active Medications: Current Medications Generic Name Dose Route Start Last Admin Trade Name Freq PRN Reason Stop Dose Admin Acetaminophen 1,000 mg 11/12/23 07:30 11/12/23 06:10 Acetaminophen 500 Mg Tablet PO 11/12/23 07:31 1,000 mg PREOP ONE Administration Celecoxib 400 mg 11/12/23 07:30 11/12/23 06:10 Celecoxib 200 Mg Capsule PO 11/12/23 07:31 400 mg X1 ONE Administration Dexamethasone Sodium Phosphate 8 mg 11/12/23 07:30 11/12/23 06:11 Dexamethasone 4 Mg/Ml Vial IV 11/12/23 07:31 8 mg X1 ONE Administration Enoxaparin Sodium 40 mg 11/12/23 07:30 11/12/23 06:11 Enoxaparin 40 Mg/0.4 Ml Syringe SC 11/12/23 07:31 40 mg X1 ONE Administration Gabapentin 600 mg 11/12/23 07:30 11/12/23 06:11 Gabapentin 600 Mg Tablet PO 11/12/23 07:31 600 mg PREOP ONE Administration Lactated Ringer's 1,000 mls @ 40 mls/hr 11/12/23 07:30 11/12/23 06:06 IV 40 mls/hr .Q25H PEYMAN Administration Cefazolin Sodium 2 gm/ Sodium 110 mls @ 150 mls/hr 11/12/23 07:30 Chloride IV 11/12/23 08:13 PREOP ONE Magnesium Sulfate 1 gm/ 102 mls @ 408 mls/hr 11/12/23 07:30 11/12/23 06:07 Dextrose IV 11/12/23 07:44 408 mls/hr X1 ONE Administration Insulin Human Lispro 0 unit 11/12/23 07:30 Insulin Lispro 100 Unit/Ml Insuln.Pen SC Q4H PRN PRN BG >/= 180, SEE PROTOCOL Protocol Ondansetron HCl 4 mg 11/12/23 07:30 Ondansetron 4 Mg/2 Ml Vial IV 11/12/23 07:31 X1 ONE Phenazopyridine HCl 190 mg 11/12/23 07:30 11/12/23 06:09 Phenazopyridine 95 Mg Tablet PO 11/12/23 07:31 190 mg X1 ONE Administration Scopolamine HBr 1 patch 11/12/23 07:30 11/12/23 06:22 Scopolamine 1mg/72hr Patch TD 11/12/23 07:31 1 patch X1 ONE Administration PFSH Medical History Osteoarthritis of left knee Left knee pain History of steroid therapy Wears glasses Fatty liver Migraine headache Dietary restriction Non-smoker History of pain when walking History of echocardiogram History of stress test NAFLD (nonalcoholic fatty liver disease) Prediabetes RLQ discomfort Diabetes HTN (hypertension) Home Medications ?Medication ?Instructions ?Recorded ?Last Taken ?Type metformin 500 mg tablet 500 mg PO BID dm 10/27/14 11/11/23 21:00 History spironolactone 50 mg tablet 50 mg PO DAILY bp 10/27/14 11/11/23 06:50 History acetaminophen 500 mg tablet 500 mg PO Q6H PRN pain 03/14/22 Unknown History (Tylenol Extra Strength) amlodipine 10 mg tablet 10 mg PO DAILY 10/18/22 11/11/23 06:50 History hydroxyzine HCl 25 mg tablet 25 mg PO .PRN PRN anxiety 10/18/22 11/11/23 21:00 History ramipril 1.25 mg capsule 1.25 mg PO DAILY 10/18/22 11/11/23 06:50 History calcium 333 mg-vit D3 133 1 tab PO DAILY 10/29/23 11/10/23 History unit-magnesium 133 mg-zinc 5 mg tablet vitamin D3 125 mcg (5,000 1 cap PO DAILY 10/29/23 11/11/23 06:50 History unit)-vitamin K2 100 mcg capsule Allergy/AdvReac Type Severity Reaction Status Date / Time No Known Allergies Allergy Verified 11/12/23 05:55 Family History Grandmother Cancer cervical Father Rheumatic fever with heart involvement Surgical History History of hysteroscopy H/O dilation and curettage S/P right rotator cuff repair S/P tubal ligation S/P tonsillectomy S/P laparoscopic cholecystectomy Social History adopted: No household members: spouse, children and other details: mom number of children: 2 current occupational status: employed 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
--- NOTE | 2023-11-12 07:30 | HYST_PTH ---
PATIENT: JOSIAH ADEN LOC: [facility] [place] U#:[id number] AGE/SX: 48/F ROOM: RE11/12/[address]: Dr. Janae Roper MD : 1975 BED: DIS: 11/12/2023 SPEC #: [id number] RECD: 11/12/23 14:02 STATUS: KENIA ANDER #: [id number] KYLEIGH: 11/12/23 07:[address]: Janae Roper DEPT: SURGICAL PATHOLOGY RECD BY: Mara Vences ENTERED: 11/12/23 14:29 SP TYPE: HYSTERECT OTHR DR: Dr. Eric Cordoba MD Tissues: Uterus, NOS Procedures: Surgery Specimen Level V HEADER OPERATION: Hysterectomy, bilateral salpingectomy PRE-OP DIAGNOSIS: Endometrial hyperplasia TISSUE SUBMITTED: Uterus, cervix, bilateral fallopian tubes MICROSCOPIC DIAGNOSIS Uterus, cervix, bilateral fallopian tubes, hysterectomy, bilateral salpingectomy: Cervix - Chronic inflammation Endometrium - Focal area of hemorrhage and fibrinous exudation consistent with previous procedure related changes. - Negative for hyperplasia. Myometrium - Intramural and subserosal leiomyomas (largest measuring 1.5cm in greatest dimension) Bilateral fallopian tubes- no pathologic diagnosis. Right paratubal cyst. 11/13/2023 COMMENT Please make reference to previous specimen [id number] endometrial curettings with diagnosis of disorder proliferative endometrium to simple endometrial hyperplasia without atypia. MICROSCOPIC DESCRIPTION Slides are reviewed. GROSS DESCRIPTION Received in fixative is one container labeled with the patient's name and designated uterus, cervix, bilateral fallopian tubes. The specimen consists of a hysterectomy specimen consisting of uterus with cervix and attached bilateral fallopian tubes. The uterus with cervix weighs 155 gm and measures 11.0 x 8.0 x 5.0 cm. The serosal surface is hackett glistening. A subserosal nodule is noted. The ectocervical mucosa is congested. The external os is circular and patchoulols in contour. The endocervical canal measures 3.5 cm in length and the endocervical mucosa is hackett glistening and unremarkable. The triangular endometrial cavity measures 5.5 cm in length and 3.0 cm in width. The endometrium is ragged and measures 0.2 cm in thickness. No obvious mass lesion is identified. Sections of the uterine wall reveal multiple small nodular masses measuring 0.2 to 0.3cm in greatest dimension and a subserosal nodular mass measuring 1.5cm in greatest dimension. Uterine wall measures up to 2.5cm in thickness. Sections of these masses reveal hackett whorled cut surfaces without areas of hemorrhage, necrosis or cystic degeneration. The right fallopian tube measures 7.0cm in length and up to 0.5cm in diameter. Fimbrial end is identified and is interrupted in the middle. Sections reveal unremarkable cut surfaces. A paratubal cyst is noted measuring 2.5cm in greatest dimension and is filled with clear fluid. Cyst ornelas are thin. The left fallopian tube measures 7.0cm in length and 0.7cm in diameter. Fimbrial end is identified and is interrupted in the middle. A filshie clip is also noted in the proximal portion of the fallopian tube which appears intact. No filshie clip is noted on the right fallopian tube. Segmental Paver Installer sections are submitted in thirteen cassettes as follows: 1 - anterior cervix, 2 - posterior cervix, 3 -6- anterior uterine wall, 7-10- posterior uterine wall (entire endometrium is submitted), 11- subserosal and intramural nodular masses, 12- right fallopian tube and paratubal cyst, 13- left fallopian tube. RADHA: 11/12/2023 TC:1 CPT: 50123
[2023-11-12] MEDS: Cefazolin 2 GM in 0.9% Normal Saline (100mL Bag) 100 ML IV (07:40)
--- NOTE | 2023-11-12 07:45 | OP.PCM_ITS ---
Problems Associated Problem List Diagnoses (1) Simple endometrial hyperplasia: (2) Abnormal uterine bleeding: Report of Operation Date of Procedure: 11/12/23 Pre-Operative Diagnosis: see A/P Post-Operative Diagnosis: same Surgery/Procedure Performed:: LAVHBS cystoscopy Description of Surgical Findings:: enlarged fibroid uterus pelvic congestion Surgeon: Janae Roper rubber press tender: Richard Gonzales Type of Anesthesia: General Special Medications: hemoblast floseal Specimen's removed: uterus, tubes Drains: carrillo Estimated Blood Loss (mL): 300 Fluids Replaced: crystalloid Description of Procedure: Patient received preoperative antibiotics and SCDs were on preoperatively. Patient was taken back to the operating room and placed in the dorsal lithotomy position. General anesthesia was induced and patient was prepped and draped in normal sterile fashion. Uterine manipulator was placed inside the uterus and Carrillo catheter placed in the bladder. The umbilicus was grasped with towel clamps and an intraumbilical incision was made after injecting with quarter percent Marcaine and a Veress needle entered into the abdomen confirmed to be intra-abdominal with a low opening pressure. Abdomen was insufflated with CO2 gas and the Veress needle removed and the 5 mm trocar was placed under direct visualization without complication. Right and left lower quadrants were transilluminated and injected with quarter percent Marcaine and 5 mm ports placed under direct visualization. Pelvis was well visualized see operative findings for additional information. Bilateral fallopian tubes were identified and transected with the LigaSure device across the mesosalpinx to the level of the utero-ovarian ligament which was also transected with the LigaSure device. The broad ligament was opened up by transecting the round ligament bilaterally and skeletonizing the uterine vessels bilaterally and creating a bladder flap using the LigaSure device. the tissue was very thick with pelvic congestion and the tissue thicker than usual so dissection was more complicated and took longer. The uterine arteries were transected bilaterally with good visualization of the bladder and the ureters were seen to be inferior lateral to the operative area. Attention was then paid to the vaginal portion of the procedure and the cervix was grasped with Leonel clamps and circumferentially injected with dilute vasopressin. A circumferential incision was made and the vaginal mucosa was mobilized off posteriorly and the cul-de-sac entered into sharply and a longneck speculum placed. The anterior cul-de-sac was then identified and entered into sharply. The uterosacral ligaments were clamped cut and suture ligated with 0 Monocryl bilaterally followed by the cardinal ligaments which were clamped cut and suture ligated bilaterally with 0 Monocryl. The uterus serially descended and was removed without difficulty. Pelvic sidewall pedicles were checked and noted to have excellent hemostasis. The vaginal mucosa was reapproximated incorporating the posterior peritoneum. This was reapproximated using 0 Vicryl [id number] sutures. Excellent hemostasis was noted. The cystoscopy was then performed and bilateral ureteral strong spray was noted and the bladder was noted to have no abnormality or lesions seen. Carrillo catheter was replaced and then attention paid to the abdominal portion of the procedure again. The pelvis and cul-de-sac were well visualized and no significant active bleeding noted but some raw areas were seen on the peritoneum and therefore hemoblast was applied and still bleeding was noted so it was cauterized and floseal applied. the areas visualized and noted to have excellent hemostasis. All ports were removed under direct visualization without complication and the abdomen was desufflated of air. The instruments were removed from the abdomen and the vaginal sweep was negative. Port sites on the abdomen were closed with 4-0 Monocryl interrupted sutures and Steri's and windows were applied. She was awoken and taken recovery in stable condition. Grafts/Implants Used: none Procedure Start Time: 08:06 Procedure Stop Time: 11:09 Complications none Admit VTE Documentation VTE Present on Admission: No VTE Mechan Device Prophylaxis: SCD's VTE Pharm Prophylaxis ordered?: Yes Procedures Urinary/Genital [id number]: 74690 LAVH+BS/O <250gr Uterus
--- NOTE | 2023-11-12 07:47 | PCM.DC ---
Discharge Instructions Diet Discharge Diet: No restrictions Activity May resume sexual activity in: 6 weeks Weight Bearing Status: Full weight bearing Dressing / Incision Call your doctor if your incision/area has: Continuous Slow Oozing, Sudden Increased Bleeding, Increased Pain/ Swelling, Increased Redness and Foul Smelling Discharge Call your doctor if you observe: Fever of 101 or Higher, Using more than 1 pad per hour, Shortness of breath, Chest pain and Uncontrolled pain Suture Line Care: Avoid Pulling/Pushing and Avoid Pinching/Bending Remove Dressing in: 1 week (if present) Cleanse incision/area with: Soap & Water and Keep Dressing Clean & Dry Follow Up Care Please Follow Up With: Janae Roper MD When: Call to make an appointment with your doctor for a postop visit in 2 and 6 weeks. Test Results: Test results from this visit will be discussed in further detail at your follow-up appointment, if applicable. Discharge Plan Admission Attending Provider: Janae Roper Primary Care Provider: Eric Cordoba Instructions Print Language: Japanese Discharge Orders/Prescriptions Prescriptions: New oxycodone-acetaminophen [Percocet] 5-325 mg tablet 1 tab PO Q6H PRN (Reason: pain) 7 Days Qty: 20 0RF naproxen 500 mg tablet 500 mg PO BID PRN PRN (Reason: Pain) Qty: 30 1RF No Action acetaminophen [Tylenol Extra Strength] 500 mg tablet 500 mg PO Q6H PRN (Reason: pain) ramipril 1.25 mg capsule 1.25 mg PO DAILY amlodipine 10 mg tablet 10 mg PO DAILY Patient Comments: TAKE 1 TABLET BY MOUTH EVERY DAY hydroxyzine HCl 25 mg tablet 25 mg PO .PRN PRN (Reason: anxiety) Patient Comments: 1 TABLET AT BEDTIME FOR SLEEP, ALLERGIES, AND ANXIETY metformin 500 MG tablet 500 mg PO BID spironolactone 50 MG tablet 50 mg PO DAILY Patient Comments: vitamin D3-vitamin K2 125 mcg (5,000 unit)-100 mcg capsule 1 cap PO DAILY calcium carb-D3-mag ox-zinc ox 333 mg-133 unit -133 mg-5 mg tablet 1 tab PO DAILY Referrals / Follow Up: Eric Cordoba MD [Primary Care Provider] - Disposition Disposition (needs filled in before D/C Order can be placed): Home, Self Care
[2023-11-12] MEDS: Vasopressin 20 UNITS/ML Vial (09:26)
--- NOTE | 2023-11-12 11:28 | PCM.POST.ANE ---
Anesthesia: Postop Eval I Current Vital Signs Temperature: 97.1 F Pulse Rate: 78 Blood Pressure: 103/58 Respiratory Rate: 16 Pulse Ox: 96 Oxygen Delivery Method: Nasal Cannula Oxygen Flow Rate (L/min): 4 Assessment Airway patent: Yes Spontaneous unlabored respirations: Yes Mental status: Asleep nausea: No Vomiting: No Anesthesia Complication: No Fluid Hydration Crystalloid volume administer (ml): 1,800 Total IV fluid infused: 1,800 Progress Note Anesthesia document: Postop Eval 1 completed: Yes
[2023-11-12] MEDS: Lactated Ringers 1,000 ML 70 ML IV (12:45)
[2023-11-12] MEDS: Ketorolac 30 MG/ML Syringe IV (12:51)
[2023-11-12 13:36] LABS: Hematocrit 37.8 % (37-47); Hemoglobin 12.5 g/dL (12.0-15.0); Mean Corp Hgb Conc 33.1 g/dL (32-36); Mean Corpuscular Hgb 30.7 pg (27.0-32.0); Mean Corpuscular Volume 92.9 fL (81-99); Mean Platelet Vol. 10.5 fl (6.2-12.0); Platelet Count 254 K/mm3 (150-450); RBC Distribution Width CV 12.7 % (11.6-14.6); RBC Distribution Width SD 43.5 fl (35.1-43.9); Red Blood Count 4.07 M/mm3 (4.2-5.4); White Blood Count 19.2 K/mm3 (4.4-11.0)
[2023-11-12] MEDS: oxyCODONE 5 MG Tablet PO (14:58)
--- NOTE | 2023-11-12 16:40 | POSTOPAN2_ITS ---
Anesthesia Postop Eval I Sum Postop Eval Completion status Anesthesia document: Postop Eval 1 completed: Yes Anesthesia Postop Eval I Summary Anesthesia Postop Eval I Summary: Anesthesia Postop Eval I: Assessment Summary Airway patent Yes 11/12/23 11:30 COAT REPAIR INSPECTOR.JDEF Spontaneous unlabored Yes 11/12/23 11:30 COAT REPAIR INSPECTOR.JDEF respirations Mental status Asleep 11/12/23 11:30 COAT REPAIR INSPECTOR.JDEF nausea No 11/12/23 11:30 COAT REPAIR INSPECTOR.JDEF Vomiting No 11/12/23 11:30 COAT REPAIR INSPECTOR.JDEF Anesthesia Postop Eval I: Fluid Summary Crystalloid volume administer 1,800 11/12/23 11:30 COAT REPAIR INSPECTOR.JDEF (ml) Colloids volume administered ( ml) Blood Product volume administered (ml) Total IV fluid infused 1,800 11/12/23 11:30 COAT REPAIR INSPECTOR.JDEF Anesthesia Postop Eval I: Summary Notes Anesthesia Complication No 11/12/23 11:30 COAT REPAIR INSPECTOR.JDEF Anesthesia Complication Comment: Post-operative progress note Anesthesia: Postop Eval II Evaluation Mental status: Awake and Calm Pain Level: 1 nausea: No Vomiting: No Complications Anesthesia Complication: No
--- NOTE | 2023-11-12 16:40 | PCM.POSTANE2 ---
Anesthesia Postop Eval I Sum Postop Eval Completion status Anesthesia document: Postop Eval 1 completed: Yes Anesthesia Postop Eval I Summary Anesthesia Postop Eval I Summary: Anesthesia Postop Eval I: Assessment Summary Airway patent Yes 11/12/23 11:30 CAREER SERVICES MANAGER.JDEF Spontaneous unlabored Yes 11/12/23 11:30 CAREER SERVICES MANAGER.JDEF respirations Mental status Asleep 11/12/23 11:30 CAREER SERVICES MANAGER.JDEF nausea No 11/12/23 11:30 CAREER SERVICES MANAGER.JDEF Vomiting No 11/12/23 11:30 CAREER SERVICES MANAGER.JDEF Anesthesia Postop Eval I: Fluid Summary Crystalloid volume administer 1,800 11/12/23 11:30 CAREER SERVICES MANAGER.JDEF (ml) Colloids volume administered ( ml) Blood Product volume administered (ml) Total IV fluid infused 1,800 11/12/23 11:30 CAREER SERVICES MANAGER.JDEF Anesthesia Postop Eval I: Summary Notes Anesthesia Complication No 11/12/23 11:30 CAREER SERVICES MANAGER.JDEF Anesthesia Complication Comment: Post-operative progress note Anesthesia: Postop Eval II Evaluation Mental status: Awake and Calm Pain Level: 1 nausea: No Vomiting: No Complications Anesthesia Complication: No
== END 2023-11-12 16:48 | disposition home or self-care (01) ==
LOC: SDC 05:28 → AC 05:32
PROVIDERS: Anesthesiology; PCP Family Medicine; Referring Provider Obstetrics & Gynecology; Visit Provider Obstetrics & Gynecology
PROC: 0UT9FZZ Resection of Uterus, Via Natural or Artificial Opening With Percutaneous Endoscopic Assistance (ICD-10-PCS; CPT 58552; principal; 2023-11-12 07:05)
DX: N93.9 Abnormal uterine and vaginal bleeding, unspecified (principal); E11.9 Type 2 diabetes mellitus without complications; N85.01 Benign endometrial hyperplasia; Z79.84 Long term (current) use of oral hypoglycemic drugs; I10 Essential (primary) hypertension; Z90.49 Acquired absence of other specified parts of digestive tract; Z98.51 Tubal ligation status; N72 Inflammatory disease of cervix uteri; N83.8 Other noninflammatory disorders of ovary, fallopian tube and broad ligament; D25.1 Intramural leiomyoma of uterus; D25.2 Subserosal leiomyoma of uterus
CPT/HCPCS: 58552; 00840; 36415; 80048; 81025; 82962; 83036; 83735; 85027; 86850; 86900; 86901; 88307; J7120; J2405; J3475

== ENCOUNTER → 2024-06-01 | Outpatient (CLI) | payer BC, SELFPAY ==
--- NOTE | 2024-06-01 09:45 | BI_ITS ---
EXAM: SCRN MAMM (CAD)W/CHARMAINE BILAT DATE: 06/01/2024 CLINICAL HISTORY: F, Age 49 y/o , ANNUAL EXAM BREAST CANCER RISK ASSESSMENT: Has not been calculated. TECHNIQUE: Bilateral screening digital breast tomosynthesis with 2D and 3D images. Computer aided detection. COMPARISON: Prior exam(s) dated 05/27/2023 and 02/19/2018. FINDINGS: TISSUE DENSITY: The breast tissue is composed of scattered area of fibroglandular density. Bilateral Breast Mammographic Findings: There are no suspicious masses, suspicious clusters of microcalcifications, architectural distortion or secondary signs of malignancy identified in either breast. BI/SCRN MAMM (CAD)W/CHARMAINE BILAT IMPRESSION: OVERALL FINAL ASSESSMENT: BIRADS 1 NEGATIVE RECOMMENDATION: Routine annual follow-up in 1 Year A letter with findings and recommendations will be mailed to the patient. Reading Location: [id number]
== END | disposition home or self-care (01) ==
LOC: OPBI 09:43
PROVIDERS: PCP Family Medicine; Referring Provider Family Medicine; Visit Provider Family Medicine
DX: Z12.31 Encounter for screening mammogram for malignant neoplasm of breast (principal)
CPT/HCPCS: 77063; 77067

== ENCOUNTER → 2024-11-16 | Outpatient (CLI) | payer BC, SELFPAY ==
--- OUTSIDE RECORDS SUMMARY | 2024-11-16 10:11 | XMS RPT_ITS | CCD ---
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 Glenny Cordoba Primary Care Provider Dr. Glenny Cordoba Referring Provider 1([facility])[phone] AVTAR Gooden Attending Provider 1([facility])[phone] Papito Strong Attending Provider 1([facility])-[phone] Glenny Cordoba Primary Care Provider 1([facility])[phone] Dr. Glenny Cordoba Referring Provider 1([facility])[phone] AVTAR Gooden Attending Provider [phone] Papito Strong Attending Provider 1([facility])-[phone] Glenny Cordoba Primary Care Provider Dr. Glenny Cordoba Referring Provider [phone] AVTAR Gooden Attending Provider [phone] Dr. Glenny Cordoba Primary Care Provider Dr. Glenny Cordoba Referring Provider 1([facility])[phone] AVTAR Gooden Attending Provider [phone] Dr. Papito Strong Attending Provider 1([facility])-[phone] Mateusz Ivory Attending Provider 1([facility])[phone] AVTAR Gooden Referring Provider 1([facility])[phone] Glenny Cordoba MD Primary Care Provider [phone] GLENNY CORDOBA Primary Care Unavailable AYDEE BEAVERS Referring Unavailab AYDEE Montejo Attending Unavailab GLENNY Ngouera Primary Care Unavailable NORRIS MANN Attending Unavailable GLENNY CORDOBA Primary Care Unavailable NORRIS MANN Attending Unavailable NORRIS MANN Referring Unavailable CORDOBA, GLENNY A Primary Care Unavailable Adalid NAIDU, Dr. Reyes Primary Care Provider [phone] Adalid NAIDU, Dr. Reyes Attending Provider Adalid NAIDU, Dr. Reyes Referring Provider Cordoba, Glenny Primary Care Unavailable Cordoba, Glenny Referring Unavailable Isabel, Glenny Attending Unavailable Cordoba, Glenny Primary Care Unavailable Cordoba, Glenny Referring Unavailable Grabiel Mathews Attending Unavailable Cordoba, Glenny Primary Care Unavailable Cordoba, Glenny Referring Unavailable Marcanthony, Janae Attending Unavailable Cordoba, Glenny Primary Care Unavailable Cordoba, Glenny Referring Unavailable Alejandra Benoit Attending Unavailable Cordoba, Glenny Referring Unavailable Marcanthony, Janae Attending Unavailable Cordoba, Glenny Primary Care Unavailable Cordoba, Glenny Referring Unavailable Nicole HEEL WHEELER, Kenna Attending Unavailable Cordoba, Glenny Primary Care Unavailable Cordoba, Glenny Primary Care Unavailable Marcanthony, Janae Consulting Unavailable Marcanthony, Janae Referring Unavailable Marcanthony, Janae Attending Unavailable Cordoba, Glenny Primary Care Unavailable Marcanthony, Janae Referring Unavailable Marcanthony, Janae Attending Unavailable Cordoba, Glenny Primary Care Unavailable Marcanthony, Janae Attending Unavailable Marcanthony, Janae Referring Unavailable Cordoba, Glenny Attending Unavailable Cordoba, Glenny Primary Care Unavailable Cordoba, Glenny Referring Unavailable Cordoba, Glenny Primary Care Unavailable Cordoba, Glenny Referring Unavailable Cordoba, Glenny Attending Unavailable Cordoba, Glenny Primary Care Unavailable Marcanthony, Janae Referring Unavailable Marcanthony, Janae Attending Unavailable Cordoba, Glenny Attending Unavailable Cordoba, Glenny Primary Care Unavailable Cordoba, Glenny Referring Unavailable Cordoba, Glenny Primary Care Unavailable Marcanthony, Janae Referring Unavailable Marcanthony, Janae Attending Unavailable Cordoba, Glenny Primary Care Unavailable Cordoba, Glenny Referring Unavailable Marcanthony, Janae Attending Unavailable Marcanthony, Janae Attending Unavailable Marcanthony, Janae Consulting Unavailable Marcanthony, Janae Referring Unavailable Cordoba, Glenny Primary Care Unavailable Cordoba, Glenny Primary Care Unavailable Marcanthony, Janae Attending Unavailable Marcanthony, Janae Consulting Unavailable Marcanthony, Janae Referring Unavailable Medications Current Medications Medication Drug Class(es) Dates Sig (Normalized) Sig (Original) amLODIPine 10 mg oral tablet (5 sources) Dihydropyridine Calcium Channel Danis Start: 10-18-2022 take 1 tablet by mouth once daily Amlodipine 10 mg tablet Active 10 mg PO DAILY October 18, 2022 12:00am Start: 10-18-2022 Amlodipine Act ambrocio MG PO October 18, 2022 12:00am benzonatate 100 mg oral capsule (1 source) Non-narcotic Antitussive Start: 05-21-2021 End: 06-05-2021 take 1 capsule by mouth every eight hours as needed for cough and cough benzonatate (TESSALON PERLE) 100 mg capsule Indications: Cough Take 1 capsule by mouth every 8 hours as needed for cough for up to 15 days. 30 capsule 0 05/21/2021 06/05/2021 Active Comment on above: Take 1 capsule by mo [facility] every 8 hours as needed for cough for up to 15 days. Calcium Carb-D3-Mag Ox-Zinc Ox (1 source) Vitamin D Start: 10-29-2023 Calcium Carb-D3-Mag Ox-Zinc Ox 333 mg-133 unit -133 mg-5 mg tablet Active 1 {tbl} PO DAILY October 29, 2023 12:00am hydrOXYzine hydrochloride 25 mg oral tablet (9 sources) Antihistamine Start: 10-18-2022 hydrOXYzine HCl (ATARAX) 25 mg tablet 1 TABLET AT BEDTIME FOR SLEEP, ALLERGIES, AND ANXIETY 01/03/2024 Active Start: 10-18-2022 Hydroxyzine Hc l Active MG PO October 18, 2022 12:00am 24 hr metFORMIN hydrochloride 500 mg extended release oral tablet (15 sources) Biguanide Start: 03-20-2021 take 1 tablet by mouth once daily metFORMIN ER (GLUCOPHAGE XR) 500 mg 24 hr tablet Take 500 mg by mouth once daily. 03/20/2021 Active Start: 10-27-2014 [facility] Metformin 500 MG tablet Active 500 mg PO TWICE A DAY October 27, 2014 12:00am Start: 10-27-2014 take 500 mg by mouth once suzie y Metformin Active 500 MG PO DAILY October 27, 2014 12:00am Comment on above: Take 500 mg by mouth once daily. pioglitazone 30 mg oral tablet (4 sources) Peroxisome Proliferator Receptor alpha Agonist, Peroxisome Proliferator Receptor gamma Agonist, Thiazolidinedione Start: take 1 tablet by mouth once pioglitazone (ACTOS) 30 mg tablet Take 1 tablet by mouth every afternoon. 01/03/2024 Active ramipril 2.5 mg oral capsule (9 sources) Angiotensin Converting Enzyme Inhibitor Start: 024 take 1 capsule by mouth once ramipril (ALTACE) 2.5 mg capsule Take 1 capsule by mouth every afternoon. 12/07/2023 Active Start: 10-18-2022 take 1 capsule by [facility] once daily Ramipril 1.25 mg capsule Active 1.25 mg PO DAILY October 18, 2022 12:00am Start: 10-18-2022 Ramipril Activ e MG PO October 18, 2022 12:00am spironolactone 50 mg oral tablet (15 sources) Aldosterone Antagonist Start: 10-27-2014 take 1 tablet by mouth once daily Spironolactone 50 MG tablet Active 50 mg PO DAILY October 27, 2014 12:00am SPIRONOLACTONE O RAL Take by mouth. Active SPIRONOLACTONE O RAL Take by mouth. 0 Active Comment on above: Take by mouth. traMADol hydrochloride 50 mg oral tablet (1 source) Opioid Agonist Start: 5 End: 5 take 1 tablet by mouth every four hours as needed for pain traMADol (ULTRAM) 50 mg tablet Indications: Primary osteoarthritis of both knees Take 1 tablet by mouth every 4 hours as needed for pain for up to 7 days. for pain. 20 tablet 02/28/2024 03/06/2024 Active vitamin D3-vitamin K2 1,250-200 mcg cap (4 sources) vitamin D3-vitam in K2 1,250-200 mcg cap Take by mouth. Active Vitamin D3-Vitamin K2 125 mcg (5,000 unit)-100 mcg capsule (1 source) Start: 4 take 1 capsule by mouth once daily Vitamin D3-Vitamin K2 125 mcg (5,000 unit)-100 mcg capsule Active 1 NMA PO DAILY October 29, 2023 12:00am Completed/Discontinued Medications Medication Drug Class(es) Dates Sig (Normalized) Sig (Original) acetaminophen 500 mg oral tablet (8 sources) Start: 03-14-2022 End: 11-26-2023 take 1 tablet by mouth every six hours as needed for pain Acetaminophen (Tylenol Extra Strength) 500 mg tablet Discontinued 500 mg PO EVERY 6 HOURS as needed for pain March 14, 2022 1:00am November 26, 2023 9:40am acetaminophen 325 mg / oxyCODONE hydrochloride 5 mg oral tablet (1 source) Opioid Agonist Start: 11-12-2023 End: 11-26-2023 Oxycodone-Acetamino phen (Percocet) 5-325 mg tablet Discontinued 1 {tbl} PO EVERY 6 HOURS as needed for pain 30 08November 12, 2023 November 26, 2023 9:40am busPIRone hydrochloride 7.5 mg oral tablet (5 sources) Start: 10-18-2022 End: 09-06-2023 Buspirone 7.5 mg tablet Discontinued mg PO October 18, 2022 12:00am September 06, 2023 3:19pm Start: 10-18-2022 Buspirone Acti ve MG PO October 18, 2022 12:00am celecoxib 200 mg oral capsule (1 source) Nonsteroidal Anti-inflammatory Drug Start: 10-29-2023 End: 10-31-2023 take 1 capsule by mouth once daily Celecoxib 200 mg capsule Discontinued 200 mg PO DAILY October 29, 2023 12:00am October 31, 2023 10:03am cephalexin 500 mg oral capsule (9 sources) Cephalosporin Antibacterial Start: 06-22-2020 End: 06-29-2020 Cephalexin 500 mg capsule Discontinued CAPSULE PO June 22, 2020 12:00am June 29, 2020 3:04pm Start: 06-22-2020 End: 06-29-2020 Cephalexin Discontinued CAPS ULE PO June 22, 2020 12:00am June 29, 2020 3:04pm cholecalciferol 0.05 mg oral capsule (5 sources) Vitamin D Start: 10-18-2022 End: 09-27-2023 Cholecalciferol (Vitamin D3) 50 mcg (2,000 unit) capsule Discontinued PO October 18, 2022 12:00am September 27, 2023 11:19am Start: 10-18-2022 Cholecalcifero l (Vitamin D3) Active PO October 18, 2022 12:00am 3 ml sodium hyaluronate 20 m g/ml prefilled syringe (4 sources) Start: 05-25-2024 End: 05-25-2024 hyaluronate sodium, stabiliz ed syrg 3 mL (DUROLANE) Start: 05-25-2024 End: 05-25-2024 3 mL, Injection - FOR ORTHO USE ONLY, ONCE, 1 dose, Starting on Sat05/25/24 at 1552, Until Sat05/25/24 at 1552 ibuprofen 800 mg oral tablet (13 sources) Nonsteroidal Anti-inflammatory Drug Start: 10-18-2022 End: 11-01-2022 take 1 tablet by mouth three times daily Ibuprofen 800 mg tablet Discontinued 800 mg PO THREE TIMES A DAY October 18, 2022 12:00am October 31, 2022 12:00am November 01, 2022 12:04am Do not take in conjunction with other NSAIDs. Tylenol is okay. Start: 03-14-2022 End: 09-27-2023 Ibuprofen 200 mg tablet Disc ontinued 220 mg PO EVERY 6 HOURS as needed March 14, 2022 1:00am September 27, 2023 11:20am On Hold: Order Changed Start: 03-14-2022 take 220 mg by mouth every six hours Ibuprofen Active 220 MG PO EVERY 6 HOURS March 14, 2022 1:00am On Hold: Order Changed meloxicam 15 mg oral tablet (8 sources) Nonsteroidal Anti-inflammatory Drug Start: 03-14-2022 End: 10-18-2022 take 1 tablet by mouth once daily Meloxicam 15 mg tablet Discontinued 15 mg PO DAILY March 14, 2022 1:00am October 18, 2022 8:06am Do not take in conjunction with other NSAIDs. Tylenol is okay. 24 hr metoprolol succinate 50 mg extended release oral tablet (15 sources) beta-Adrenergic Danis Start: 10-27-2014 End: 10-18-2022 take 1 tablet by mouth once daily Metoprolol Succinate 50 MG tablet Discontinued 50 mg PO DAILY October 27, 2014 12:00am October 18, 2022 8:06am Comment on above: Take 50 mg by mouth once daily. naproxen 500 mg oral tablet (1 source) Nonsteroidal Anti-inflammatory Drug Start: 11-12-2023 End: 11-26-2023 take 1 tablet by mouth twice daily as needed for pain Naproxen 500 mg tablet Discontinued 500 mg PO TWICE DAILY NEEDED as needed for Pain November 12, 2023 12:00am November 26, 2023 9:40am predniSONE 10 mg oral tablet (1 source) Start: 10-29-2023 End: 11-12-2023 take 1 tablet by mouth once daily Prednisone 10 mg tablet Discontinued 10 mg PO DAILY October 29, 2023 12:00am November 12, 2023 5:56am Problems Active Problems Problem Classification Problem Date Documented Date Episodic/Chronic Abdominal pain (9 sources) Right lower quadrant pain; Translations: [Right lower quadrant pain] 10-31-2018 Episodic Diabetes mellitus without complication (1 source) Prediabetes; Translations: [Prediabetes] 09-06-2023 Episodic Essential hypertension (1 source) Hypertensive disorder; Translations: [Essential (primary) hypertension] 10-29-2023 Chronic Comment on above: CONTROLLED WITH MEDS Joint disorders and dislocations; trauma-related (4 sources) Unspecified internal derangement of right knee; Translations: [Unspecified internal derangement of knee] 03-14-2022 Chronic Menstrual disorders (12 sources) Excessive and frequent menstruation; Translations: [Excessive and frequent menstruation with regular cycle] Onset: 09-02-2006 09-02-2006 Chronic Nonmalignant breast conditions (9 sources) Sebaceous cyst of skin of breast; Translations: [Other benign mammary dysplasias of right breast] 07-13-2020 Episodic Osteoarthritis (8 sources) Unilateral primary osteoarthritis, right knee; Translations: [Osteoarthrosis, unspecified whether generalized or localized, lower leg] Onset: 10-31-2023 04-13-2022 Chronic Other connective tissue disease (5 sources) Swelling of left lower limb; Translations: [Other specified soft tissue disorders] 10-18-2022 Episodic Other connective tissue disease (1 source) Other specified soft tissue disorders; Translations: [Swelling of limb] 10-18-2022 Episodic Other female genital disorders (1 source) Abnormal uterine bleeding; Translations: [Abnormal uterine and vaginal bleeding, unspecified] 10-16-2023 Chronic Comment on above: cbc TSH US WNL; s/p d and c hysteroscopy jazlyn-simple endometrial hyperplasia; proliferative endometrium Other female genital disorders (1 source) Simple endometrial hyperplasia; Translations: [Benign endometrial hyperplasia] 10-21-2023 Chronic Comment on above: discussed diagnosis reviewed risk of previous ablation could delay diagnosis of cancer or limit full evaluation post treatment with progesterone. offered progesterone or hysterectomy treatment, patient requesting hyst. plan LAVHBS. Other female genital disorders (1 source) Benign endometrial hyperplasia; Translations: [Benign endometrial hyperplasia] Onset: 12-08-2023 Chronic Other female genital disorders (2 sources) Abnormal uterine and vaginal bleeding, unspecified; Translations: [Abnormal uterine and vaginal bleeding, unspecified] Onset: 12-08-2023 Chronic Other liver diseases (2 sources) Fatty (change of) liver, not elsewhere classified; Translations: [Nonalcoholic fatty liver disease] Onset: 06-13-2023 09-06-2023 Chronic Other lower respiratory disease (1 source) Cough; Translations: [Cough] Episodic Other non-traumatic joint disorders (6 sources) Pain in unspecified knee; Translations: [Knee pain] 10-18-2022 Episodic Other screening for suspected conditions (not mental disorders or infectious disease) (2 sources) Encounter for screening mammogram for malignant neoplasm of breast; Translations: [Encounter for screening for malignant neoplasm of cervix] Onset: 09-27-2023 Episodic Residual codes; unclassified (1 source) Pain; Translations: [Pain, unspecified] 02-28-2024 Episodic Residual codes; unclassified (1 source) Pain, unspecified; Translations: [Pain] Onset: 02-28-2024 Episodic Residual codes; unclassified (1 source) History of vaginal hysterectomy; Translations: [Acquired absence of both cervix and uterus] 11-12-2023 Episodic Comment on above: endometrial hyperpla mayte, sm LAVHBS Past or Other Problems Problem Classification Problem Date Documented Date Episodic/Chronic Contraceptive and procreative management (12 sources) Intrauterine contraceptive device in situ; Translations: [Encounter for routine checking of intrauterine contraceptive device] Onset: 09-02-2006 09-02-2006 Episodic Other connective tissue disease (1 source) Pain in left lower leg; Translations: [Pain in left lower leg] Onset: 11-09-2023 Episodic Other non-traumatic joint disorders (2 sources) Pain in left knee; Translations: [Pain in joint, lower leg] Onset: 10-31-2023 10-18-2022 Episodic Residual codes; unclassified (1 source) Acquired absence of both cervix and uterus; Translations: [Acquired absence of both cervix and uterus] Onset: 12-08-2023 Episodic Residual codes; unclassified (1 source) Acquired absence of other genital organ(s); Translations: [Acquired absence of other genital organ(s)] Onset: 12-08-2023 Episodic Results Test Name Value Interpretation Reference Range Facility Breast imaging reportOrdered By: Argelia Moon on 06-01-2024 Study report [facility] Imaging Services [address] [place] [address] SCRN MAMM (CAD)W/CHARMAINE BILAT MR#: [id number] Acct: [id number] Name: BRITTANY TRIANA Rep #: [id number] : 1975 F 49 From: Qamar Moon DO PCP: Dr. Glenny Cordoba MD Status: REG CLI Study:SCRN MAMM (CAD)W/CHARMAINE BILAT Date of Exa m: 06/01/24 Exam# [id number] Ordering Dr: Caleb Cordoba MD EXAM: SCRN MAMM (CAD)W/CHARMAINE BILAT DATE: 06/01/2024 CLINICAL HISTORY: F, Age 49 y/o , ANNUAL EXAM BREAST CANCER RISK ASSESSMENT: Has not been calculated. TECHNIQUE: Bilateral screening digital breast tomosynthesis with 2D and 3D images. Computeraided detection. COMPARISON: Prior exam(s) dated 05/27/2023 and 02/19/2018. FINDINGS: TISSUE DENSITY: The breast tissue is composed of scattered area of fibroglandular density. Bilateral Breast Mammographic Findings: There are no suspicious masses, suspicious clusters of microcalcifications, architectural distortion or secondary signs of malignancy identified in either breast. BI/SCRN MAMM (CAD)W/CHARMAINE BILAT IMPRESSION: OVERALL FINAL ASSESSMENT: BIRADS 1 NEGATIVE RECOMMENDATION: Routine annual follow-up in 1 Year A letter with findings and recommendations will be mailed to the patient. Reading Location: [facility] CC: Dr. Glenny Cordoba MD ~ Lathing Supervisor: Signed [facility] SCRN MAMM (CAD)W/CHARMAINE BILATo n 06-01-2024 SCRN MAMM (CAD)W/CHARMAINE BILAT [facility] Imaging Services [address] [place] [id number] SCRN MAMM (CAD)W/CHARMAINE BILAT MR#: [id number] Acct: [id number] Name: BRITTANY TRIANA Rep #: [id number] : 1975 F 49 From: Argelia Araiza PCP: Dr. Glenny Cordoba MD Status: [facility] CLI Study: SCRN MAMM (CAD)W/CHARMAINE BILAT Date of Exam: 05/13 03/07 Exam# [id number] Ordering Dr: Glenny Cordoba MD EXAM: SCRN MAMM (CAD)W/CHARMAINE BILAT DATE: 06/01/2024 CLINICAL HISTORY: F, Age 49 y/o , ANNUAL EXAM BREAST CANCER RISK ASSESSMENT: Has not been calculated. TECHNIQUE: Bilateral screening digital breast tomosynthesis with 2D and 3D images. Computer aided detection. COMPARISON: Prior exam(s) dated 05/27/2023 and 02/19/2018. FINDINGS: TISSUE DENSITY: The breast tissue is composed of scattered area of fibroglandular density. Bilateral Breast Mammographic Findings: There are no suspicious masses, suspicious clusters of microcalcifications, architectural distortion or secondary signs of malignancy identified in either breast. BI/SCRN MAMM (CAD)W/CHARMAINE BILAT IMPRESSION: OVERALL FINAL ASSESSMENT: BIRADS 1 NEGATIVE RECOMMENDATION: Routine annual follow-up in 1 Year A letter with findings and recommendations will be mailed to the patient. Reading Location: [facility] CC: Dr. Glenny Cordoba MD Lathing Supervisor: Signed [facility] CNOVon 05-25-2024 CNOV Office Visit (ORMDNA ) BRITTANY TRIANA ([id number]) 1975 F Date Time Provider Department 05/25/24 4:00 PM NORRIS MANN During your visit today, we recorded the following information about you: Norris Mann MD 05/25/2024 5:15 PM Signed SUBJECTIVE: Here for injection of Durolane into bilateral knees. OBJECTIVE: bilateral knee continues to have mild effusion, positive crepitants and decreased ROM. ASSESSMENT: bilateral knees pain secondary to osteoarthritis PLAN: 1. Injection of dose of Durolane through Betadine cleansed inferolateral insertion site. 2. Follow up 1 months' time for repeat evaluation Large Joint Arthro/Inj: bilateral knee joints 05/25/2024 3:52 PM The procedure site was prepped in the usual sterile fashion. Site: bilateral knee joints Medications (Right): 3 mL hyaluronate sodium, stabilized 60 mg/3 mL Medications (Left): 3 mL hyaluronate sodium, stabilized 60 mg/3 mL Outcome: Tolerated well, no immediate complications Post-injection instructions were reviewed with the patient and the patient voiced understanding of these instructions. Informed Consent Consent Obtained: N/A Gunlock Protocol A moment to CARE was completed. SIGN IN Personnel directly involved with the procedure wore the appropriate PPE. Patient/Surrogate Stated/Verified: Patient name and Relevant allergies TIME OUT Correct side/site marked and visible. SIGN OUT The post-procedure POC has been communicated to the patient or surrogate. Referring Provider: NORRIS MANN [[id number]] Allergies As of Date: 05/25/2024 (No Known Allergies) Date Reviewed: 05/25/2024 Reviewed by: Pati Nicole MA - Fully Assessed Reason for Visit: Follow Up [171] Injections [199] Knee Pain [132] Follow Up [171] Injections [199] Knee Pain [132] Primary Visit Diagnosis:Primary osteoarthritis of both knees [M17.0] Order(s):Large Joint Arthro/Inj: bilateral knee joints [XJS901] Order #: [id number] [] hyaluronate sodium, stabilized syrg 3 mL (DUROLANE)Disp: Rfl: [] hyaluronate sodium, stabilized syrg 3 mL (DUROLANE)Disp: Rfl: Prescriptions as of 05/25/2024 - ramipril (ALTACE) 2.5 mg capsule Take 1 capsule by mouth every afternoon. - hydrOXYzine HCl (ATARAX) 25 mg tablet 1 TABLET AT BEDTIME FOR SLEEP, ALLERGIES, AND ANXIETY - pioglitazone (ACTOS) 30 mg tablet Take 1 tablet by mouth every afternoon. - vitamin D3-vitamin K2 1,250-200 mcg cap Take by mouth. - metFORMIN ER (GLUCOPHAGE XR) 500 mg 24 hr tablet Take 500 mg by mouth once daily. - SPIRONOLACTONE ORAL Take by mouth. - metoprolol succinate XL, long acting, 50 mg 24 hr tablet Take 50 mg by mouth once daily. Problem List As Of Date 05/25/2024 Noted Resolved EXCESSIVE MENSTRUATION [N92.0] 09/02/2006 DYSMENORRHEA [N94.6] 09/02/2006 IUD SURVEILLANCE [Z30.431] 09/02/2006 Encounter for IUD removal [Z30.432] 12/04/2011 Prescriptions ordered this encounter Disp Refills Start End HYALURONATE SODIUM, STABILIZED 60 MG* 05/25/2024 05/25/2024 Route: Inj-ORTHO HYALURONATE SODIUM, STABILIZED 60 MG* 05/25/2024 05/25/2024 Route: Inj-ORTHO Encounter Status:Closed by NORRIS MANN on 05/25/24 Normal [facility] Large Joint Arthro/Inj: bila teral knee jointson 05-25-2024 Norris Mann MD 05/25/2024 5:15 PM Large Joint Arthro/Inj: bilateral knee joints 05/25/2024 3:52 PM The procedure site was prepped in the usual sterile fashion. Site: bilateral knee joints Medications (Right): 3 mL hyaluronate sodium, stabilized 60 mg/3 mL Medications (Left): 3 mL hyaluronate sodium, stabilized 60 mg/3 mL Outcome: Tolerated well, no immediate complications Post-injection instructions were reviewed with the patient and the patient voiced understanding of these instructions. Informed Consent Consent Obtained: N/A Gunlock Protocol A moment to CARE was completed. SIGN IN Personnel directly involved with the procedure wore the appropriate PPE. Patient/Surrogate Stated/Verified: Patient name and Relevant allergies TIME OUT Correct side/site marked and visible. SIGN OUT The post-procedure POC has been communicated to the patient or surrogate. [facility] Gary 05-05-2024 LORI Telephone (ORMDNA) BRITTANY TRIANA ([id number]) 1975 F Date Time Provider Department 05/05/24 NORRIS MANN During your visit today, we recorded the following information about you: Xiomy Graham 05/05/2024 12:22 PM Signed Patient's insurance has authorized Durolane gel injections for the patient's bilateral knee. Patient last had an injection of n/a. These injections can be scheduled now These are scheduled 1 a week for 1 week(s) in a row. These can be scheduled with or Mateusz Werner PA-C for a sooner appointment. Héctor Sung 05/05/2024 1:14 PM Signed Pt gordo Héctor Sung Allergies As of Date: 05/05/2024 (No Known Allergies) Date Reviewed: 05/01/2024 Reviewed by: Pati Nicole MA - Fully Assessed Reason for Visit: gel knee injections [Other] Prescriptions as of 05/05/2024 - ramipril (ALTACE) 2.5 mg capsule Take 1 capsule by mouth every afternoon. - hydrOXYzine HCl (ATARAX) 25 mg tablet 1 TABLET AT BEDTIME FOR SLEEP, ALLERGIES, AND ANXIETY - pioglitazone (ACTOS) 30 mg tablet Take 1 tablet by mouth every afternoon. - vitamin D3-vitamin K2 1,250-200 mcg cap Take by mouth. - metFORMIN ER (GLUCOPHAGE XR) 500 mg 24 hr tablet Take 500 mg by mouth once daily. - SPIRONOLACTONE ORAL Take by mouth. - metoprolol succinate XL, long acting, 50 mg 24 hr tablet Take 50 mg by mouth once daily. Problem List As Of Date 05/05/2024 Noted Resolved EXCESSIVE MENSTRUATION [N92.0] 09/02/2006 DYSMENORRHEA [N94.6] 09/02/2006 IUD SURVEILLANCE [Z30.431] 09/02/2006 Encounter for IUD removal [Z30.432] 12/04/2011 Encounter Status:Closed by HÉCTOR SUNG on 05/05/24 Normal [facility] CNOVon 05-01-2024 CNOV Office Visit (ORMDNA ) BRITTANY TRIANA ([id number]) 1975 F Date Time Provider Department 05/01/24 1:15 PM NORRIS MANN ORGERMAINE During your visit today, we recorded the following information about you: Weight Height 112 kg 1.676 m Norris Mann MD 05/01/2024 1:57 PM Signed DEPARTMENT OF ORTHOPAEDICS HISTORY OF PRESENT ILLNESS: This is a pleasant 49 year old female, who presents today with a chief complaint of left>right knee pain. She complains of sharp, burning, and aching pain about the anterior and medial aspect of approximately several years duration. This pain is constant. She denies trauma. She complains that the pain is 4/10. She reports nocturnal pain. The pain is exacerbated by walking, managing stairs, and prolonged standing. Previous treatments have included hinged knee brace, prednisone, [id number] NSAIDs, gel injection right knee which did provide her with relief for approximately a year. She has not had any injections in the left knee. She denies proximal radiation. She denies distal radiation. She denies numbness, tingling, or electric shocks. She reports clicking, grinding, and giving way. She reports swelling and/or warmth. PAIN EVALUATION 05/01/2024 1311 Pain Level: 4 Pain Location: Knee-Left Description: Sore;Aching;Throbbing Duration Amount of Time: 2 Duration Units: Years Frequency: Continuous Intervention/Comfort measure: -- brace, PAST MEDICAL HISTORY Diagnosis Date Dysmenorrhea Excessive or frequent menstruation Heavy periods Migraine headache Prediabetes Unspecified essential hypertension 02/11/2010 Essential hypertension PAST SURGICAL HISTORY Procedure Laterality Date LAPAROSCOPY SURG CHOLECYSTECTOMY 2002 Cholecystectomy, lap/tubal ligation also LIG/TRNSXJ FLP TUBE ABDL/VAG APPR UNI/BI Tubal ligation TONSILLECTOMY PRIMARY/SECONDARY Tonsillectomy as an adult Current Outpatient Medications Medication Sig Dispense Refill ramipril (ALTACE) 2.5 mg capsule Take 1 capsule by mouth every afternoon. hydrOXYzine HCl (ATARAX) 25 mg tablet 1 TABLET AT BEDTIME FOR SLEEP, ALLERGIES, AND ANXIETY pioglitazone (ACTOS) 30 mg tablet Take 1 tablet by mouth every afternoon. vitamin D3-vitamin K2 1,250-200 mcg cap Take by mouth. metFORMIN ER (GLUCOPHAGE XR) 500 mg 24 hr tablet Take 500 mg by mouth once daily. SPIRONOLACTONE ORAL Take by mouth. metoprolol succinate XL, long acting, 50 mg 24 hr tablet Take 50 mg by mouth once daily. No current facility-administered medications for this visit. 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 MUSCULOSKELETAL: See HPI. PSYCH: Negative for sleep disturbance, mood disorder and recent psychosocial stressors. HEMATOLOGY Negative for prolonged bleeding, bruising easily, and swollen nodes. ENDOCRINE: Negative for cold or heat intolerance, polyuria, polydipsia and goiter. NEURO: negative for lightheadedness, dizziness, tremor, gait imbalance, syncope and seizures. RADIOGRAPHS: Last XR Knee - Impression Only XR KNEE GENERAL 4V AP BOTH/PA BOTH/LAT/MERC BILATERAL Exam End: 02/28/2024 9:49 AM (Final result) Impression: IMPRESSION: Bilateral osteoarthrosis Lathing Supervisor: NADER Transcribe Date/Time: Mar 02 2024 9:25A Dictated by : MIKE BARRAGAN MD ... OTHER STUDIES: Last MRI Knee - Impression Only No resulted procedures found. PHYSICAL EXAM: Ht 5' 6" (1.68m) Wt 246 lb 14.6 oz (112.0kg) LMP 11/16/2011 BMI 39.87 kg/(m2). General: Appears stated age, well built, in no apparent distress. Psychiatric: Mood and affect appropriate. Alert and oriented x3. Musculoskeletal Exam: Gait and Station antalgic: left. BILATERAL KNEE EXAM: Inspection Skin No evidence of eythema, warmth, bruising, abrasions, scars, swelling, atrophy or deformity about bilateral lower extremities. Incision No evidence of surgical incisions. Atrophy No evidence of muscular atrophy. Range of Motion Knee 5-110 degrees Patella Decrea (more content not included)... Normal [facility] CNOVon 02-28-2024 CNOV Office Visit (MENDOZA ) BRITTANY TRIANA ([id number]) 1975 F Date Time Provider Department 02/28/24 10:15 AM AYDEE BEAVERS During your visit today, we recorded the following information about you: Aydee Beavers DO 02/28/2024 10:51 AM Signed Reason for Visit/Chief Complaint Brittany Triana is a 48 year old female who presents today for a new evaluation of following complaint: Patient presents with: Right Knee - New, Knee Pain Left Knee - New, Knee Pain History of Present Illness: PAIN EVALUATION 02/28/2024 1015 Pain Level: 8 Pain Location: -- bilateral knee Description: Sore;Aching;Throbbing Duration Units: Years Frequency: Intermittent Intervention/Comfort measure: -- gel injections, brace, HPI: Brittany Triana is a 48 year old female presenting today with bilateral knee pain. Patient has been experiencing knee pain for years now. She was see outside of [facility] where she received treatment. She is here to discuss options as that provider left. Pain history is noted as above. Denies calf pain, numbness, tingling, fever, chills or other constitutional symptoms. Patient states left knee is worse Previous Treatments: Ice: Yes Heat: No Brace: Yes, left knee NSAIDs: Yes, advil Injections: Yes, recent gel injection - euflexxa - lasted 1 year Surgeries: No Physical Therapy: No Review of Systems: Patient did not have, and does not currently have, any weight loss, malaise, fever, chills, headache, chest pain, chest pressure, palpitations, cough, shortness of breath, orthopnea, paroxsymal nocturnal dyspnea, nausea, vomiting, diarrhea, constipation, melena, hematochezia, urinary difficulties, prolonged bleeding, easily bruising, heat or cold intolerance, new onset joint pain or swelling, new onset extremity weakness or numbness, new onset auditory or visual disturbances, lightheadedness, dizziness, partial loss of consciousness or full loss of consciousness. Current Outpatient Medications on File Prior to Visit Medication Sig ramipril (ALTACE) 2.5 mg capsule Take 1 capsule by mouth every afternoon. hydrOXYzine HCl (ATARAX) 25 mg tablet 1 TABLET AT BEDTIME FOR SLEEP, ALLERGIES, AND ANXIETY pioglitazone (ACTOS) 30 mg tablet Take 1 tablet by mouth every afternoon. vitamin D3-vitamin K2 1,250-200 mcg cap Take by mouth. metFORMIN ER (GLUCOPHAGE XR) 500 mg 24 hr tablet Take 500 mg by mouth once daily. SPIRONOLACTONE ORAL Take by mouth. metoprolol succinate XL, long acting, 50 mg 24 hr tablet Take 50 mg by mouth once daily. No current facility-administered medications on file prior to visit. ALLERGIES No Known Allergies Physical Exam: Vitals: [facility] 11/16/2011 Psych: Pleasant, good affect and mood General Appearance: Well appearing, alert, in no acute distress, well-hydrated, well nourished.. Skin: Skin color, texture, turgor normal, no suspicious rashes or lesions. Peripheral Pulses: Normal. Neurologic: Gait normal. Reflexes normal and symmetric. Sensation grossly intact.. Lymph Nodes: No cervical lymphadenopathy, No supraclavicular lymphadenopathy, No axillary lymphadenopathy., and No inguinal lymphadenopathy.. Respiratory: No recent pulmonary infection, hemoptysis, chronic cough, or shortness of breath at rest Rheumatologic: Joint deformities: bilateral knee pain Right Knee Exam Tenderness The patient is experiencing tenderness in the medial joint line and patella. Range of Motion Extension: normal Flexion: normal Tests Mary: Anterior - negative Posterior - negative Drawer: Anterior - negative Posterior - negative Other Erythema: absent Sensation: normal Pulse: present Swelling: mild Comments: Pat crepitus Left Knee Exam Tenderness The patient is experiencing tenderness in the medial joint line and patella. Range of Motion Extension: normal Flexion: normal Tests Mary: Anterior - negative Posterior - negative Drawer: Anterior - negative Posterior - negative Other Erythema: absent Sensation: normal Pulse: present Swelling: mild Comments: Neg homans bilaterally Imaging: Last XR Knee - Impression Only XR KNEE GENERAL 4V AP BOTH/PA BOTH/LAT/MERC BILATERAL Exam End: 02/28/2024 9:49 AM (In process) Assessment and Plan: Impression: Encounter Diagnosis ICD-10-CM 1. Primary osteoarthritis of both knees M17.0 traMADol (ULTRAM) 50 mg tablet Plan: Options for treatment are: Do nothing Nsaids- rx or otc Topical pain meds- voltaren or lidocaine Injections- PRP, Steroid, or Gel: risks and benefits given for each MRI if limited oa and meniscus tear suspected Physical Therapy Bracing Arthroscopy Mediterranean Diet/ turmeric/ low carb Weight loss if necessary Discussed options for treatment for OA Decreased weight, increased strength, core strengthening, hamstring strengthening An (more content not included)... Normal [facility] XR KNEE 4V AP/PA/LAT/MERCH B MAon 02-28-2024 XR KNEE 4V AP/PA/LAT/MERCH ZANA * * *Final Report* * * DATE OF EXAM: Feb 28 2024 9:43AM LINO [id number] - XR KNEE 4V AP/PA/LAT/MERCH ZANA / PROCEDURE REASON: [id number] * * * * Physician Interpretation * * * * PROCEDURE: Bilateral knees INDICATION: Pain .bilateral knee pain TECHNIQUE: XR KNEE 4V AP/PA/LAT/MERCH ZANA COMPARISON: None FINDINGS: Bilateral tricompartment osteoarthrosis, most severe in the medial and patellofemoral joint compartments. Joint space narrowing is most severe in the medial joint compartment in the left knee. No acute fracture or dislocation. Trace right joint effusion without identifiable left joint effusion. IMPRESSION: Bilateral osteoarthrosis Lathing Supervisor: NADER Transcribe Date/Time: Mar 02 2024 9:25A Dictated by : MIKE BARRAGAN MD This examination was interpreted and the report reviewed and electronically signed by: MIKE BARRAGAN MD on Mar 02 2024 9:26AM EST [id number] [facility] Display Department Manager Office Visit Reporton 12-13-2023 Display Department Manager Office Visit Report [facility] [address], [address] [place] [address] OFFICE VISIT Date of Service: 12/13/23 MR#: [id number] Acct: [id number] Name: BRITTANY TRIANA Rep #: [id number] : 1975 Provider: Dr. Janae doherty MD Age/Sex: 48/F Location: [facility] Status: Signed Intake Vital Signs 10/21/23 08:06 11/26/23 09:41 12/13/23 09:28 Height 5 ft 8 in 5 ft 8 in 5 ft 8 in Weight: 237 lb BMI 36.0 BP 130/84 H Intake Visit Reasons: 6 wk LAVHBS little early due to bear Allergies No Known Allergies Allergy (Verified 12/13/23 09:35) Medications ???Medication ???Instructions ???Recorded ???Confirmed ???Type metformin 500 mg tablet 500 mg PO BID dm 10/27/14 12/13/23 History spironolactone 50 mg tablet 50 mg PO DAILY bp 10/27/14 12/13/23 History amlodipine 10 mg tablet 10 mg PO DAILY 10/18/22 12/13/23 History hydroxyzine HCl 25 mg tablet 25 mg PO .PRN PRN anxiety 10/18/22 12/13/23 History ramipril 1.25 mg capsule 1.25 mg PO DAILY 10/18/22 12/13/23 History calcium 333 mg-vit D3 133 1 tab PO DAILY 10/29/23 12/13/23 History unit-magnesium 133 mg-zinc 5 mg tablet vitamin D3 125 mcg (5,000 1 cap PO DAILY 10/29/23 12/13/23 History unit)-vitamin K2 100 mcg capsule Is last menstrual period known: No Patient : No : [facility] History Osteoarthritis of left knee Left knee pain History of steroid therapy Wears glasses Fatty liver Migraine headache Dietary restriction Non-smoker History of pain when walking History of echocardiogram History of stress test NAFLD (nonalcoholic fatty liver disease) Prediabetes RLQ discomfort Diabetes HTN (hypertension) Surgical History Status post bilateral salpingectomy S/P laparoscopic assisted vaginal hysterectomy (LAVH) History of hysteroscopy H/O dilation and curettage S/P right rotator cuff repair S/P tubal ligation S/P tonsillectomy S/P laparoscopic cholecystectomy Family History Grandmother Cancer cervical Father Rheumatic fever with heart involvement Social History adopted: No household members: spouse, children and other details: mom number of children: 2 current occupational status: employed 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 pets and animals: Yes pets and animals: cat(s) and dog(s) history of recent travel: No sexually active: Yes Smoking Status: Never smoker alcohol intake: never substance use type: does not use caffeine: Yes seatbelt use: always do you feel safe at home: Yes 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 Date Name GA/Weeks Outcome Route Bth Weight Gen Labor Lgth Anesthesia Del Locatn Provider FOB 01/30/98 Luis Daniel 08/04/01 Shirin JOHNSON Const Constitutional: Reports system reviewed and no additional complaints, except as documented GI GI: Denies abdominal pain, cramping, nausea or vomiting : Denies pelvic pain, urinary frequency, urinary incontinence, urinary urgency, vaginal discharge, vaginal dryness or vaginal odor Exam Const General: cooperative, healthy appearing, comfortable and no acute distress External Female Exam: normal external appearance and normal appearance of the urethra Urethra: normal appearance of the urethra Speculum Exam - Vagina: normal appearance of the vagina and other (normal vaginal length, apex well supprted and healed, intact no granulation) Speculum Exam - Cervix: absent Bimanual Exam- Vagina Uterus: uterus absent Bimanual Exam- Adnexa, other: normal and non-tender Pelvic Support: normal Other: vaginal cuff normal and intact, good vaginal length, no granulation tissue present Coding Level of Care Code No Charge Diagnoses S/P laparoscopic assisted vaginal hysterectomy (LAVH) Z90.710 Assessment and Plan Assessment and Plan (1) S/P laparoscopic assisted vaginal hysterectomy (LAVH): Status: Acute Comment: endometrial hyperplasia, sm LAVHBS Plan fu annually 12/13/23 1001 Date Janae Bolaños Signature: Date (if applicable) CC: Normal [facility] Display Department Manager Office Visit Reporton 11-26-2023 Display Department Manager Office Visit Report [facility] [address], [address] [place] [address] OFFICE VISIT Date of Service: 11/26/23 MR#: [id number] Acct: [id number] Name: BRITTANY TRIANA Rep #: [id number] : 1975 Provider: KAVITA griffiths Age/Sex: 48/F Location: [facility] Status: Signed Intake Vital Signs 10/21/23 08:06 11/12/23 05:59 11/26/23 09:36 11/26/23 09:41 Height 5 ft 8 in 5 ft 8 in 5 ft 8 in 5 ft 8 in Weight: 235 lb 4 oz BMI 35.7 BP 124/76 H Intake Visit Reasons: 2 wk LAVHBS Chief Complaint: 2 Week LAVHBS Dealer Relationship Manager Required: No Is patient in pain?: No Allergies No Known Allergies Allergy (Verified 11/26/23 09:35) Medications ???Medication ???Instructions ???Recorded ???Confirmed ???Type metformin 500 mg tablet 500 mg PO BID dm 10/27/14 11/26/23 History spironolactone 50 mg tablet 50 mg PO DAILY bp 10/27/14 11/26/23 History amlodipine 10 mg tablet 10 mg PO DAILY 10/18/22 11/26/23 History hydroxyzine HCl 25 mg tablet 25 mg PO .PRN PRN anxiety 10/18/22 11/26/23 History ramipril 1.25 mg capsule 1.25 mg PO DAILY 10/18/22 11/26/23 History calcium 333 mg-vit D3 133 1 tab PO DAILY 10/29/23 11/26/23 History unit-magnesium 133 mg-zinc 5 mg tablet vitamin D3 125 mcg (5,000 1 cap PO DAILY 10/29/23 11/26/23 History unit)-vitamin K2 100 mcg capsule Is last menstrual period known: No Post menopausal: No Patient : No : No Control Method: [facility] Medical History Osteoarthritis of left knee Left knee pain History of steroid therapy Wears glasses Fatty liver Migraine headache Dietary restriction Non-smoker History of pain when walking History of echocardiogram History of stress test NAFLD (nonalcoholic fatty liver disease) Prediabetes RLQ discomfort Diabetes HTN (hypertension) Surgical History Status post bilateral salpingectomy S/P laparoscopic assisted vaginal hysterectomy (LAVH) History of hysteroscopy H/O dilation and curettage S/P right rotator cuff repair S/P tubal ligation S/P tonsillectomy S/P laparoscopic cholecystectomy Family History Grandmother Cancer cervical Father Rheumatic fever with heart involvement Social History adopted: No household members: spouse, children and other details: mom number of children: 2 current occupational status: employed 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 No pain med since postop day #4. Denies pain, fatiue, issues with bowel or bladder habits. Has had no bleeding. "Feel great". History 2 Elective abortions Hx Para 2 Spontaneous abortions Hx # Term Pregnancies Ectopic pregnancies Hx # Pregnancies Multiple births # of living children 2 Past Pregnancies Del. Date Name GA/Weeks Outcome Route Bth Weight Gen Labor Lgth Anesthesia Del Locatn Provider FOB 01/30/98 Luis Daniel 08/04/01 Shirin Exam Const General: cooperative and no acute distress Orientation: oriented x3 GI Inspection: incision (well healed X 3, nonerythematous) Palpation: soft and nontender Coding Level of Care Code No Charge Diagnoses Postop check Z09 S/P laparoscopic assisted vaginal hysterectomy (LAVH) Z90.710 Status post bilateral salpingectomy Z90.79 Assessment and Plan Assessment and Plan (1) Postop check: (2) S/P laparoscopic assisted vaginal hysterectomy (LAVH): Status: Acute Comment: endometrial hyperplasia, sm LAVHBS (3) Status post bilateral salpingectomy: Status: Acute Comment: lavhbs no further hyperplasia seen Plan Routine post op care Avoid heavy lifting 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 Janae Roper MD Normal [facility] Bedside Glucoseon 11-12-2023 FINGERSTICK GLU 106 mg/dL Normal 74-106 [facility] Comment on above: Result Comment: NATALIE GEMENT OF PATIENT CARE PER NURSING PROTOCOL Performed By: #### L 501.080 #### [facility] [address] [place], [address] CBC-Complete Blood Cnt No Di omeroon 11-12-2023 Erythrocyte distribution width (RBC) [Ratio] 12.7 % Normal 11.6-14.6 [facility] Comment on above: Performed By: #### L 100.0500 #### [facility] [address] [place], [address] Hematocrit (Bld) [Volume fraction] 37.8 % Normal 37-47 [facility] Comment on above: Performed By: #### L 100.0500 #### [facility] [address] [place], [address] Hemoglobin (Bld) [Mass/Vol] 12.5 g/dL Normal 12.0-15.0 [facility] Comment on above: Performed By: #### L 100.0500 #### [facility] [address] [place], [address] MCH (RBC) [Entitic mass] 30.7 pg Normal 27.0-32.0 [facility] Comment on above: Performed By: #### L 100.0500 #### [facility] [address] [place], [address] MCHC (RBC) [Mass/Vol] 33.1 g/dL Normal 32-36 [facility] Comment on above: Performed By: #### L 100.0500 #### [facility] [address] [place], [address] MCV (RBC) [Entitic vol] 92.9 fL Normal 81-99 [facility] Comment on above: Performed By: #### L 100.0500 #### [facility] [address] [place], [address] Platelet mean volume (Bld) [Entitic vol] 10.5 fL Normal 6.2-12.0 [facility] Comment on above: Performed By: #### L 100.0500 #### [facility] [address] [place], [address] Platelets (Bld) [#/Vol] 254 10*3/uL Normal 150-450 [facility] Comment on above: Performed By: #### L 100.0500 #### [facility] [address] [place], [address] RBC (Bld) [#/Vol] 4.07 10*6/uL Low 4.2-5.4 [facility] Comment on above: Performed By: #### L 100.0500 #### [facility] [address] [place], [address] RDW SD 43.5 fl Normal 35.1-43.9 [facility] Comment on above: Performed By: #### L 100.0500 #### [facility] [address] [place], [address] WBC (Bld) [#/Vol] 19.2 10*3/uL High 4.4-11.0 [facility] Comment on above: Performed By: #### L 100.0500 #### [facility] [address] [place], [address] Discharge Instructionon 100 Discharge Instruction [facility] Medical Records Department [address] [place] [place] [address] Instructions for Home/Discharge Instructions 11/12/23 0747 MR#: [id number] Acct: [id number] Name: BRITTANY TRIANA Ivonne Rep #: [id number] : 1975 48 From: Janae Roper MD PCP: Dr. Glenny Cordoba MD Status:[facility] Discharge Instructions Diet Discharge Diet: No restrictions Activity May resume sexual activity in: 6 weeks Weight Bearing Status: Full weight bearing Dressing / Incision Call your doctor if your incision/area has: Continuous Slow Oozing, Sudden Increased Bleeding, Increased Pain/ Swelling, Increased Redness and Foul Smelling Discharge Call your doctor if you observe: Fever of 101 or Higher, Using more than 1 pad per hour, Shortness of breath, Chest pain and Uncontrolled pain Suture Line Care: Avoid Pulling/Pushing and Avoid Pinching/Bending Remove Dressing in: 1 week (if present) Cleanse incision/area with: Soap Water and Keep Dressing Clean Dry Follow Up Care Please Follow Up With: Janae Roper MD When: Call to make an appointment with your doctor for a postop visit in 2 and 6 weeks. Test Results: Test results from this visit will be discussed in further detail at your follow-up appointment, if applicable. Discharge Plan Admission Attending Provider: Janae Roper Primary Care Provider: Glenny Cordoba Instructions Print Language: [place] Islander Discharge Orders/Prescriptions Prescriptions: New oxycodone-acetaminophe n [Percocet] 5-325 mg tablet 1 tab PO Q6H PRN (Reason: pain) 7 Days Qty: 20 0RF naproxen 500 mg tablet 500 mg PO BID PRN PRN (Reason: Pain) Qty: 30 1RF No Action acetaminophen [Tylenol Extra Strength] 500 mg tablet 500 mg PO Q6H PRN (Reason: pain) ramipril 1.25 mg capsule 1.25 mg PO DAILY amlodipine 10 mg tablet 10 mg PO DAILY Patient Comments: TAKE 1 TABLET BY MOUTH EVERY DAY hydroxyzine HCl 25 mg tablet 25 mg PO .PRN PRN (Reason: anxiety) Patient Comments: 1 TABLET AT BEDTIME FOR SLEEP, ALLERGIES, AND ANXIETY metformin 500 MG tablet 500 mg PO BID spironolactone 50 MG tablet 50 mg PO DAILY Patient Comments: vitamin D3-vitamin K2 125 mcg (5,000 unit)-100 mcg capsule 1 cap PO DAILY calcium carb-D3-mag ox-zinc ox 333 mg-133 unit -133 mg-5 mg tablet 1 tab PO DAILY Referrals / Follow Up: Glenny Cordoba MD [Primary Care Provider] - Disposition Disposition (needs filled in before D/C Order can be placed): Home, Self Care 11/12/23 1112 Janae Roper MD CC: Dr. Glenny Cordoba MD Signed [facility] MR/POSTOP.Shaun 11-12-2023 MR/POSTOP.[facility] Medical Records Department [address] [place] [address] Anesthesia Postop Eval I 11/12/23 1128 MR#: [id number] Acct: [id number] Name: BRITTANY TRIANA Ivonne Rep #: [id number] : 1975 48 From: Nadia Wiley [employer] PCP: Dr. Glenny Cordoba MD Status:REG [facility] Y Race: C Location: [place] [address] Anesthesia: Postop Eval I Current Vital Signs Temperature: 97.1 F Pulse Rate: 78 Blood Pressure: 103/58 Respiratory Rate: 16 Pulse Ox: 96 Oxygen Delivery Method: Nasal Cannula Oxygen Flow Rate (L/min): 4 Assessment Airway patent: Yes Spontaneous unlabored respirations: Yes Mental status: Asleep nausea: No Vomiting: No Anesthesia Complication: No Fluid Hydration Crystalloid volume administer (ml): 1,800 Total IV fluid infused: 1,800 Progress Note Anesthesia document: Postop Eval 1 completed: Yes 11/12/23 1130 Date Nadia [employer] Cosigner Signature: Date CC: Signed Normal [facility] MR/[id number] [facility]-12-2023 [facility] Medical Records Department [address] [place] [address] Anesthesia Postop Eval II 11/12/23 1640 MR#: [id number] Acct: [id number] Name: BRITTANY TRIANA Ivonne Rep #: [id number] : 1975 48 From: Calderon Mar MD PCP: Dr. Glenny Cordoba MD Status:REG [facility] Y Race: C Location: [place] [address] Anesthesia Postop Eval I Sum Postop Eval Completion status Anesthesia document: Postop Eval 1 completed: Yes Anesthesia Postop Eval I Summary Anesthesia Postop Eval I Summary: Anesthesia Postop Eval I: Assessment Summary Airway patent Yes 11/12/23 11:30 [employer].JDEF Spontaneous unlabored Yes 11/12/23 11:30 [employer].JDEF respirations Mental status Asleep 11/12/23 11:30 [employer].JDEF nausea No 11/12/23 11:30 [employer].JDEF Vomiting No 11/12/23 11:30 [employer].JDEF Anesthesia Postop Eval I: Fluid Summary Crystalloid volume administer 1,800 11/12/23 11:30 [employer].JDEF (ml) Colloids volume administered ( ml) Blood Product volume administered (ml) Total IV fluid infused 1,800 11/12/23 11:30 [employer].JDEF Anesthesia Postop Eval I: Summary Notes Anesthesia Complication No 11/12/23 11:30 [employer].JDEF Anesthesia Complication Comment: Post-operative progress note Anesthesia: Postop Eval II Evaluation Mental status: Awake and Calm Pain Level: 1 nausea: No Vomiting: No Complications Anesthesia Complication: No 11/12/23 1641 Date Calderon Mar MD Cosigner Signature: Date CC: Signed Normal [facility] Operative Reporton 4 Operative Report [facility] Medical Records Department [address] [place] [address] Operative Report 11/12/23 0745 MR#: [id number] Acct: [id number] Name: BRITTANY TRIANA Rep #: [id number] : 1975 48 From: Janae Roper MD PCP: Dr. Glenny Cordoba MD Status:[facility] Location: [place] [address] Problems Associated Problem List Diagnoses (1) Simple endometrial hyperplasia: (2) Abnormal uterine bleeding: Report of Operation Date of Procedure: 11/12/23 Pre-Operative Diagnosis: see A/P Post-Operative Diagnosis: same Surgery/Procedure Performed:: LAVHBS cystoscopy Description of Surgical Findings:: enlarged fibroid uterus pelvic congestion Surgeon: Janae Roper senior account executive: Richard Gonzales Type of Anesthesia: General Special Medications: hemoblast floseal Specimen's removed: uterus, tubes Drains: solorzano Estimated Blood Loss (mL): 300 Fluids Replaced: crystalloid Description of Procedure: Patient received preoperative antibiotics and SCDs were on preoperatively. Patient was taken back to the operating room and placed in the dorsal lithotomy position. General anesthesia was induced and patient was prepped and draped in normal sterile fashion. Uterine manipulator was placed inside the uterus and Solorzano catheter placed in the bladder. The umbilicus was grasped with towel clamps and an intraumbilical incision was made after injecting with quarter percent Marcaine and a Veress needle entered into the abdomen confirmed to be intra-abdominal with a low opening pressure. Abdomen was insufflated with CO2 gas and the Veress needle removed and the 5 mm trocar was placed under direct visualization without complication. Right and left lower quadrants were transilluminated and injected with quarter percent Marcaine and 5 mm ports placed under direct visualization. Pelvis was well visualized see operative findings for additional information. Bilateral fallopian tubes were identified and transected with the LigaSure device across the mesosalpinx to the level of the utero-ovarian ligament which was also transected with the LigaSure device. The broad ligament was opened up by transecting the round ligament bilaterally and skeletonizing the uterine vessels bilaterally and creating a bladder flap using the LigaSure device. the tissue was very thick with pelvic congestion and the tissue thicker than usual so dissection was more complicated and took longer. The uterine arteries were transected bilaterally with good visualization of the bladder and the ureters were seen to be inferior lateral to the operative area. Attention was then paid to the vaginal portion of the procedure and the cervix was grasped with Leonel clamps and circumferentially injected with dilute vasopressin. A circumferential incision was made and the vaginal mucosa was mobilized off posteriorly and the cul-de-sac entered into sharply and a longneck speculum placed. The anterior cul-de-sac was then identified and entered into sharply. The uterosacral ligaments were clamped cut and suture ligated with 0 Monocryl bilaterally followed by the cardinal ligaments which were clamped cut and suture ligated bilaterally with 0 Monocryl. The uterus serially descended and was removed without difficulty. Pelvic sidewall pedicles were checked and noted to have excellent hemostasis. The vaginal mucosa was reapproximated incorporating the posterior peritoneum. This was reapproximated using 0 Vicryl [id number] sutures. Excellent hemostasis was noted. The cystoscopy was then performed and bilateral ureteral strong spray was noted and the bladder was noted to have no abnormality or lesions seen. Solorzano catheter was replaced and then attention paid to the abdominal portion of the procedure again. The pelvis and cul-de-sac were well visualized and no significant active bleeding noted but some raw areas were seen on the peritoneum and therefore hemoblast was applied and still bleeding was noted so it was cauterized and floseal applied. the areas visualized and noted to have excellent hemostasis. All ports were removed under direct visualization without complication and the abdomen was desufflated of air. The instruments were removed from the abdomen and the vaginal sweep was negative. Port sites on the abdomen were closed with 4-0 Monocryl interrupted sutures and Steri's and windows were applied. She was awoken and taken recovery in stable condition. Grafts/Implants Used: none Procedure Start Time: 08:06 Procedure Stop Time: 11:09 Complications none Admit VTE Documentation VTE Present on Admission: No VTE Mechan Device Prophylaxis: SCD's VTE Pharm Prophylaxis ordered?: Yes Procedures Urinary/Genital 52xxx-59xxx: 03878 LAVH+BS/O <250gr Uterus 11/12/23 1112 Cosigner Signature (if applicable): CC: Dr. Glenny Cordoba MD; Dr. Janae Roper MD Signed Normal [facility] ,Urineon 11-12-2023 Beta HCG ( test) Ql (U) Negative Normal [facility] Comment on above: Result Comment: Very dilute urine specimens, as indicated by a low specific gravity, may not contain credit resolution representative levels of hCG. If is still suspected, a first morning urine specimen should be collected 48 hours later and tested. Performed By: #### P SUV #### [facility] [address] [place], [place], [address] Surgery Specimen Level Von 1 Surgery Specimen Level V ---- Patient Age/Sex Location Account Attending Physician ---- BRITTANY TRIANA 48/F [facility] [id number] Dr. Janae Roper MD ---- Specimen: [id number] Received: 11/12/23 Status: KENIA Thompsonaleksandar Num: [id number] Spec Type: HYSTERECT Subm Dr: Dr. Janae Roper MD HEADER OPERATION: Hysterectomy, bilateral salpingectomy PRE-OP DIAGNOSIS: Endometrial hyperplasia TISSUE SUBMITTED: Uterus, cervix, bilateral fallopian tubes ---- MICROSCOPIC DIAGNOSIS Uterus, cervix, bilateral fallopian tubes, hysterectomy, bilateral salpingectomy: Cervix - Chronic inflammation Endometrium - Focal area of hemorrhage and fibrinous exudation consistent with previous procedure related changes. - Negative for hyperplasia. Myometrium - Intramural and subserosal leiomyomas (largest measuring 1.5cm in greatest dimension) Bilateral fallopian tubes- no pathologic diagnosis. Right paratubal cyst. 11/13/2023 COMMENT Please make reference to previous specimen [id number] endometrial curettings with diagnosis of disorder proliferative endometrium to simple endometrial hyperplasia without atypia. MICROSCOPIC DESCRIPTION Slides are reviewed. GROSS DESCRIPTION Received in fixative is one container labeled with the patient's name and designated uterus, cervix, bilateral fallopian tubes." The specimen consists of a hysterectomy specimen consisting of uterus with cervix and attached bilateral fallopian tubes. The uterus with cervix weighs 155 gm and measures 11.0 x 8.0 x 5.0 cm. The serosal surface is hackett glistening. A subserosal nodule is noted. The ectocervical mucosa is congested. The external os is circular and patchoulols in contour. The endocervical canal measures 3.5 cm in length and the endocervical mucosa is hackett glistening and unremarkable. The triangular endometrial cavity measures 5.5 cm in length and 3.0 cm in width. The endometrium is ragged and measures 0.2 cm in thickness. No obvious mass lesion is identified. Sections of the uterine wall reveal multiple small nodular masses measuring 0.2 to 0.3cm in greatest dimension and a subserosal nodular mass measuring 1.5cm in greatest dimension. Uterine wall measures up to 2.5cm in thickness. Sections of these masses reveal hackett whorled cut surfaces without areas of hemorrhage, necrosis or cystic degeneration. The right fallopian tube measures 7.0cm in length and up to 0.5cm in diameter. Fimbrial end is identified and is interrupted in the middle. Sections reveal unremarkable cut surfaces. A paratubal cyst is ---- Patient Age/Sex Location Account Attending Physician ---- BRITTANY TRIANA 48/F [facility] [id number] Dr. Janae Roper MD ---- noted measuring 2.5cm in greatest dimension and is filled with clear fluid. Cyst ornelas are thin. The left fallopian tube measures 7.0cm in length and 0.7cm in diameter. Fimbrial end is identified and is interrupted in the middle. A filshie clip is also noted in the proximal portion of the fallopian tube which appears intact. No filshie clip is noted on the right fallopian tube. [employer] Manager sections are submitted in thirteen cassettes as follows: 1 - anterior cervix, 2 - posterior cervix, 3 -6- anterior uterine wall, 7-10- posterior uterine wall (entire endometrium is submitted), 11- subserosal and intramural nodular masses, 12- right fallopian tube and paratubal cyst, 13- left fallopian tube. SJ:mr 11/12/2023 TC:1 CPT: 79487 ---- Patient Age/Sex Location Account Attending Physician ---- BRITTANY TRIANA 48/F [facility] [id number] Dr. Janae Roper MD ---- Signed (signature on file) Dr. River Toussaint MD 11/13/23 1150 ---- Normal [facility] Comment on above: Performed By: #### P SUV #### [facility] [address] [place], [place], [id number] Basic Metabolic Profile (BMP )on 11-06-2023 BUN/CRE 23.0 RATIO High 10-20 [facility] Comment on above: Performed By: #### L 500.2500, L501.5200 #### [facility] [address] [place], [place], [id number] CA,Total 9.9 mg/dL Normal 8.5-10.1 [facility] Comment on above: Performed By: #### L 500.2500, L501.5200 #### [facility] [address] [place], [place], [id number] Chloride [Moles/Vol] 102 mmol/L Normal 98-107 [facility] Comment on above: Performed By: #### L 500.2500, L501.5200 #### [facility] [address] [place], [address] CO2 [Moles/Vol] 33.0 mmol/L High 21.0-32.0 [facility] Comment on above: Performed By: #### L 500.2500, L501.5200 #### [facility] [address] [place], [address] Creatinine [Mass/Vol] 0.78 mg/dL Normal 0.55-1.02 [facility] Comment on above: Result Comment: The validity of the calculated GFR GFRAA in patients over 70 years has not been determined. Clinical correlation is essential. Performed By: #### L 500.2500, L501.5200 #### [facility] [address] [place], [address] EST GFR - AA 101 mL/min Normal >60 [facility] Comment on above: Result Comment: Afri can Chilean GFR Calc Performed By: #### L 500.2500, L501.5200 #### [facility] [address] [place], [address] GAP 3 Low 5-15 [facility] Comment on above: Performed By: #### L 500.2500, L501.5200 #### [facility] [address] [place], [address] GFR/1.73 sq M.predicted among non-blacks MDRD (S/P/Bld) [Vol rate/Area] 83 mL/min/{1.73_m2} Normal >60 [facility] Comment on above: Result Comment: Non- GFR Calc Performed By: #### L 500.2500, L501.5200 #### [facility] [address] [place], [address] Glucose [Mass/Vol] 112 mg/dL High 74-[address] [facility] Comment on above: Result Comment: Fast ing Glucose result from 100 to 125 mg/dL suggests IMPAIRED HOMEOSTASIS per A.D.A. criteria. Performed By: #### L 500.2500, L501.5200 #### [facility] [address] [place], [address] Potassium [Moles/Vol] 4.2 mmol/L Normal 3.5-5.1 [facility] Comment on above: Performed By: #### L 500.2500, L501.5200 #### [facility] [address] [place], [address] Sodium [Moles/Vol] 138 mmol/L Normal 136-[address] [facility] Comment on above: Performed By: #### L 500.2500, L501.5200 #### [facility] [address] [place], [address] Urea nitrogen [Mass/Vol] 18 mg/dL Normal 7-18 [facility] Comment on above: Performed By: #### L 500.2500, L501.5200 #### [facility] [address] [place] [place], [address] CBC-Complete Blood Cnt No Di ffon 11-06-2023 Erythrocyte distribution width (RBC) [Ratio] 12.9 % Normal 11.6-14.6 [facility] Comment on above: Performed By: #### P SUV #### [facility] [address] [place], [address] Hematocrit (Bld) [Volume fraction] 40.4 % Normal 37-47 [facility] Comment on above: Performed By: #### P SUV #### [facility] [address] [place], [address] Hemoglobin (Bld) [Mass/Vol] 13.2 g/dL Normal 12.0-15.0 [facility] Comment on above: Performed By: #### P SUV #### [facility] [address] [place], [address] MCH (RBC) [Entitic mass] 30.8 pg Normal 27.0-32.0 [facility] Comment on above: Performed By: #### P SUV #### [facility] [address] [place], [address] MCHC (RBC) [Mass/Vol] 32.7 g/dL Normal 32-36 [facility] Comment on above: Performed By: #### P SUV #### [facility] [address] [place], [address] MCV (RBC) [Entitic vol] 94.4 fL Normal 81-99 [facility] Comment on above: Performed By: #### P SUV #### [facility] [address] [place], [address] Platelet mean volume (Bld) [Entitic vol] 10.1 fL Normal 6.2-12.0 [facility] Comment on above: Performed By: #### P SUV #### [facility] [address] [place], [address] Platelets (Bld) [#/Vol] 330 10*3/uL Normal 150-450 [facility] Comment on above: Performed By: #### P SUV #### [facility] [address] [place], [address] RBC (Bld) [#/Vol] 4.28 10*6/uL Normal 4.2-5.4 [facility] Comment on above: Performed By: #### P SUV #### [facility] [address] [place], [address] RDW SD 44.4 fl High 35.1-43.9 [facility] Comment on above: Performed By: #### P SUV #### [facility] [address] [place], [address] WBC (Bld) [#/Vol] 13.1 10*3/uL High 4.4-11.0 [facility] Comment on above: Performed By: #### P SUV #### [facility] [address] [place], [place], [address] Hemoglobin A1con 11-06-2023 HbA1c (Bld) [Mass fraction] 5.8 % High 3.8-5.6 [facility] Comment on above: Result Comment: Norm al < 5.7 % Prediabetic 5.7 - 6.4 % Diabetic >or= 6.5 % Please note range changes. Performed By: #### P SUV #### [facility] [address] [place], [place], [address] Magnesiumon 11-06-2023 Magnesium [Mass/Vol] 2.0 mg/dL Normal 1.6-2.6 [facility] Comment on above: Performed By: #### L 500.2500, L501.5200 #### [facility] [address] [place], [place], [address] Type AND Screen - PAT ONLYon 11-06-2023 ABO and Rh group Nom (Bld) Blood group A Rh(D) positive Normal [facility] Comment on above: Order Comment: Surge ry Date: 11/12/23Reason for Laboratory Test [id number] Performed By: #### P SUV #### [facility] [address] [place], [place], [address] Orthopedic Visit Reporton Orthopedic Visit Report [facility] [facility] [address] [place], [place] [address] OFFICE VISIT Date of Service: 10/31/23 MR#: [id number] Acct: [id number] Name: BRITTANY TRIANA Ivonne Rep #: [id number] : 1975 Provider: Dr. Grabiel hassan MD Age/Sex: 48/F Location: [facility]IC[facility] Status: Signed with Addenda ADDENDUM by Dr. Grabiel Mathews MD on 10/31/23 at 1022 Assessment and Plan Assessment and Plan (1) Left knee pain: Status: Acute (2) Osteoarthritis of left knee: Status: Acute Plan please remove cpt injection code 10/31/23 1022 Date Grabiel Mathews MD cc: * Signed Intake Vital Signs 10/21/23 08:06 10/28/23 11:45 Height 5 ft 8 in 5 ft 8 in Intake Visit Reasons: LEFT KNEE Accompanied by: Self Allergies No Known Allergies Allergy (Verified 10/31/23 10:02) Medications ???Medication ???Instructions ???Recorded ???Confirmed ???Type metformin 500 mg tablet 500 mg PO BID dm 10/27/14 10/31/23 History spironolactone 50 mg tablet 50 mg PO DAILY bp 10/27/14 10/31/23 History acetaminophen 500 mg tablet 500 mg PO Q6H PRN pain 03/14/22 10/31/23 History (Tylenol Extra Strength) amlodipine 10 mg tablet 10 mg PO DAILY 10/18/22 10/31/23 History hydroxyzine HCl 25 mg tablet 25 mg PO .PRN PRN anxiety 10/18/22 10/31/23 History ramipril 1.25 mg capsule 1.25 mg PO DAILY 10/18/22 10/31/23 History calcium carb 333 mg-vit D3 133 1 tab PO DAILY 10/29/23 10/31/23 History unit-mag ox 133 mg-zinc oxide 5 mg tab prednisone 10 mg tablet 10 mg PO DAILY 10/29/23 10/31/23 History vitamin D3 125 mcg (5,000 1 cap PO DAILY 10/29/23 10/31/23 History unit)-vitamin K2 100 mcg capsule PFSH Medical History Osteoarthritis of left knee Left knee pain History of steroid therapy Wears glasses Fatty liver Migraine headache Dietary restriction Non-smoker History of pain when walking History of echocardiogram History of stress test NAFLD (nonalcoholic fatty liver disease) Prediabetes RLQ discomfort Diabetes HTN (hypertension) Surgical History History of hysteroscopy H/O dilation and curettage S/P right rotator cuff repair S/P tubal ligation S/P tonsillectomy S/P laparoscopic cholecystectomy Family History Grandmother Cancer cervical Father Rheumatic fever with heart involvement Social History adopted: No household members: spouse, children and other details: mom number of children: 2 current occupational status: employed 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 Grabiel Mathews MD 10/31/23 0943. Part of today???s visit was documented by [ ], acting as scribe. BRITTANY TRIANA is a 48 year old F here today for L knee pain, MRI and xr showing OA. had gel injections on the right side in the past. but now the left knee is hurting with shooting pains for a week from the middle and posteriorly. had a prior cortisone on the right but unsure about on the left. 1 year. no injury. no surgery or other treatment. has a hysterectomy on november 11. Supplemental Info [facility] Imaging Services [address] [place] [address] Lower Ext Joint Only (Routine) MR#: [id number] Acct: [id number] Name: BRITTANY TRIANA Rep #: [id number] : 1975 F 47 From: Keven Ribeiro MD PCP: Dr. Glenny Cordoba MD Status: REG CLI Study: Lower Ext Joint Only (Routine) Date of Exam: 11/03/22 Exam# [id number] Ordering Dr: Gricelda Kovacs [place] [id number] EXAM: MR LEFT LOWER EXTREMITY WITHOUT INTRAVENOUS CONTRAST, KNEE CLINICAL INDICATION: Pain, LT KNEE TECHNIQUE: Multiplanar and multisequence MR images of the left knee without intravenous contrast. COMPARISON: October 18, 2022 knee radiography FINDINGS: BONES/JOINTS: Prominent suprapatellar enthesophyte. Moderate patellofemoral osteoarthrosis with associated chondral loss. No fracture. No synovial hypertrophy. No intra-articular body. No concerning bone marrow signal alt (more content not included)... Normal [facility] Display Department Manager Office Visit Reporton 10-21-2023 Display Department Manager Office Visit Report [facility], [address] [place] [address] OFFICE VISIT Date of Service: 10/21/23 MR#: [id number] Acct: [id number] Name: BRITTANY TRIANA Rep #: [id number] : 1975 Provider: Dr. Janae doherty MD Age/Sex: 48/F Location: [facility] Status: Signed Intake Vital Signs 10/16/23 13:44 10/21/23 08:04 10/21/23 08:06 Height 5 ft 8 in 5 ft 8 in Weight: 237 lb 4 oz BP 130/83 H Blood Pressure Location Rt brachial Position Sitting Pulse 78 Intake Visit Reasons: PELVIC EXAM PER Dealer Relationship Manager Required: No Allergies No Known Allergies Allergy (Verified 10/21/23 08:04) Medications ???Medication ???Instructions ???Recorded ???Confirmed ???Type metformin 500 mg tablet 500 mg PO BID dm 10/27/14 10/21/23 History spironolactone 50 mg tablet 50 mg PO DAILY bp 10/27/14 10/21/23 History acetaminophen 500 mg tablet 500 mg PO Q6H PRN pain 03/14/22 10/21/23 History (Tylenol Extra Strength) amlodipine 10 mg tablet 10 mg PO DAILY 10/18/22 10/21/23 History hydroxyzine HCl 25 mg tablet 25 mg PO .PRN PRN anxiety 10/18/22 10/21/23 History ramipril 1.25 mg capsule 1.25 mg PO DAILY 10/18/22 10/21/23 History PFSH Medical History Wears glasses Fatty liver Migraine headache Dietary restriction Non-smoker History of pain when walking History of echocardiogram History of stress test NAFLD (nonalcoholic fatty liver disease) Prediabetes RLQ discomfort Diabetes HTN (hypertension) Surgical History H/O dilation and curettage S/P right rotator cuff repair S/P tubal ligation S/P tonsillectomy S/P laparoscopic cholecystectomy Family History Grandmother Cancer cervical Father Rheumatic fever with heart involvement Social History adopted: No household members: spouse, children and other details: mom number of children: 2 current occupational status: employed 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 I discussed with her the risk of delayed diagnosis of cancer, recommended progesterone treatment or hysterectomy for definitive treatment. patient requesting hysterectomy. she denies any pelvic pain, fever, co some brown discharge since ablation. History 2 Elective abortions Hx Para 2 Spontaneous abortions Hx # Term Pregnancies Ectopic pregnancies Hx # Pregnancies Multiple births # of living children 2 Past Pregnancies Del. Date Name GA/Weeks Outcome Route Bth Weight Infant Gen Labor Lgth Anesthesia Del Locatn Provider FOB 01/30/98 Luis Daniel 08/04/01 Shirin Carl Constitutional: Denies fatigue, fever(s), headache(s), increased appetite, poor appetite, weight gain or weight loss Cardio Card: Denies chest pain Resp Resp: Denies cough or dyspnea GI GI: Reports as per HPI; Denies abdominal pain, constipation, nausea or vomiting : Reports as per HPI; Denies difficulty voiding, dysuria, nipple discharge, urinary frequency, urinary incontinence, urinary hesitancy, urinary urgency, vaginal discharge, vaginal dryness, vaginal odor or vaginal pruritus Skin Skin/Breast: Denies change in hair, breast mass, breast pain, breast skin changes or nipple discharge Exam Const General: cooperative, healthy appearing, comfortable, no acute distress and well developed Nutritional Appearance: average body habitus Orientation: alert HENMT Head: normal to inspection and normocephalic Neck Neck: normal visual inspection and trachea midline Thyroid: thyroid normal Resp Effort Inspection: normal respiratory effort GI Inspection: normal to inspection and non-distended Palpation: soft and no hepatosplenomegaly General: bladder normal to palpation External Female Exam: normal external appearance and normal appearance of the urethra Urethra: normal appearance of the urethra, normal palpation and no discharge Speculum Exam - Vagina: normal appearance of the vagina and normal vaginal discharge Speculum Exam - Cervix: normal appearance of the cervix and nontender Bimanual Exam- Vagina Uterus: normal bimanual ex (more content not included)... Normal [facility] Venous Duplex US, Unilateral on 10-21-2023 Venous Duplex US, Unilateral [facility] [address] [place] [address] Venous Duplex US, Unilateral 10/21/23 1558 MR#: [id number] Acct: [id number] Name: BRITTANY TRIANA Rep #: [id number] : 1975 48 From: Glenny Hall MD Attending Dr: Dr. Glenny Cordoba MD Status: REG CL I Ordering Dr: Glenny Cordoba MD Date: 10/21/23 Location: [facility] Sex: F C Admitted: Reason For Study: Left leg pain RIGHT LEFT CFV is compressible, spontaneous, phasic, GSV is normal. competent and demonstrates normal CFV is compressible, spontaneous, phasic, augmentation. competent, and demonstrates normal Procedure augmentation. This is a venous duplex using B-mode, color FV is compressible, spontaneous, phasic, flow and spectral Doppler. competent and demonstrates normal Exam performed in department. augmentation. A preliminary report was called and/or faxed POP V is compressible, spontaneous, phasic, to Dr. Cordoba. competent and demonstrates normal augmentation. T/P Trunk is compressible. PTV is compressible. LT PerV is compressible. VL/Venous Duplex US, Unilateral Interpretation Summary Deep veins of the left lower extremity are patent and compressible segmentally. There is no evidence of left lower extremity deep vein thrombosis. The left great saphenous vein appears patent and compressible segmentally. Ordering Physician: Glenny Cordoba Referring Physician: Glenny Cordoba Performed By: Susannah Miller RVT 10/21/23 1833 Date Glenny Hall MD CC: Dr. Glenny Cordoba MD Date Dictated: 10/21/23 1558 Date Transcribed: 10/21/23 183 Lathing Supervisor: Signed Normal [facility] Display Department Manager Office Visit Reporton 10-16-2023 Display Department Manager Office Visit Report [facility]'[address], [address] [place] [address] OFFICE VISIT Date of Service: 10/16/23 MR#: [id number] Acct: [id number] Name: TRIANABRITTANY Rep #: [id number] : 1975 Provider: KAVITA Peters Age/Sex: 48/F Location: [facility] Status: Signed Intake Vital Signs 09/06/23 15:29 10/01/23 11:15 10/16/23 13:43 10/16/23 13:44 Height 5 ft 6 in 5 ft 8 in 5 ft 6 in 5 ft 8 in Weight: 234 lb BMI 37.8 BP 147/79 H Blood Pressure Location Rt brachial Position Sitting Pulse 98 Intake Visit Reasons: 2 wk D C jazlyn Dealer Relationship Manager Required: No Allergies No Known Allergies Allergy (Verified 10/16/23 13:42) Medications ???Medication ???Instructions ???Recorded ???Confirmed ???Type metformin 500 mg tablet 500 mg PO BID dm 10/27/14 10/16/23 History spironolactone 50 mg tablet 50 mg PO DAILY bp 10/27/14 10/16/23 History acetaminophen 500 mg tablet 500 mg PO Q6H PRN pain 03/14/22 10/16/23 History (Tylenol Extra Strength) amlodipine 10 mg tablet 10 mg PO DAILY 10/18/22 10/16/23 History hydroxyzine HCl 25 mg tablet 25 mg PO .PRN PRN anxiety 10/18/22 10/16/23 History ramipril 1.25 mg capsule 1.25 mg PO DAILY 10/18/22 10/16/23 History PFSH Medical History Wears glasses Fatty liver Migraine headache Dietary restriction Non-smoker History of pain when walking History of echocardiogram History of stress test NAFLD (nonalcoholic fatty liver disease) Prediabetes RLQ discomfort Diabetes HTN (hypertension) Surgical History H/O dilation and curettage S/P right rotator cuff repair S/P tubal ligation S/P tonsillectomy S/P laparoscopic cholecystectomy Family History Grandmother Cancer cervical Father Rheumatic fever with heart involvement Social History adopted: No household members: spouse, children and other details: mom number of children: 2 current occupational status: employed 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 Oscar Najera on 10/01/2023. She was initially seen for heavy menses. Ultrasound completed with heterogenous lining. She reports she continues with mild spotting but this is overall improving. She denies fever, chills, foul odor, or discharge. Does not fill pad. She reports pain is improved and a 0/10 today. She denies constipation and moving bowels well. Female Reproductive History Menopausal Symptoms: No night sweats History 2 Elective abortions Hx Para 2 Spontaneous abortions Hx # Term Pregnancies Ectopic pregnancies Hx # Pregnancies Multiple births # of living children 2 Past Pregnancies Del. Date Name GA/Weeks Outcome Route Bth Weight Infant Gen Labor Lgth Anesthesia Del Locatn Provider FOB 01/30/98 Luis Daniel 08/04/01 Shirin ROS Const Constitutional: Reports as per HPI; Denies fatigue, increased appetite, poor appetite, night sweats or weight gain ENT ENT: Reports system reviewed and no additional complaints, except as documented Cardio Card: Denies chest pain Resp Resp: Denies cough or dyspnea GI GI: Reports as per HPI; Denies abdominal pain, bloating, constipation, nausea or vomiting : Reports as per HPI; Denies difficulty voiding, dysuria, hematuria, pelvic pain, vaginal discharge, vaginal odor or vaginal pruritus Exam Const General: cooperative, healthy appearing, comfortable, no acute distress and well developed Orientation: alert HENMN Head: normal to inspection and normocephalic Ears: hearing grossly normal bilaterally and external ears normal Nose: external nose normal and nares normal Face and sinus: normal facial exam Resp Effort Inspection: normal respiratory effort Skin General: no rashes or lesions noted Neuro General: patient alert, patient awake, moves all extremities and no focal motor deficits Motor: muscle tone normal throughout Psych Appearance: grossly normal Mental Status: mental status grossly normal Affect: normal affect Speech and Movement: speech and movement normal Coding Level of Care Code Established Pt No Charge Patient Type Established Diagnoses Simple endometri (more content not included)... Normal [facility] Bedside Glucoseon 10-01-2023 FINGERSTICK GLU 107 mg/dL High 74-106 [facility] Comment on above: Result Comment: NATALIE VAZQUEZ OF PATIENT CARE PER NURSING PROTOCOL Performed By: #### P SUV #### [facility] [address] [place], [place], [id number] CBC-Complete Blood Cnt No Di ffon 10-01-2023 Erythrocyte distribution width (RBC) [Ratio] 12.5 % Normal 11.6-14.6 [facility] Comment on above: Performed By: #### L 100.0500, L400.7600, BTSPAT #### [facility] [address] [place], [address] Hematocrit (Bld) [Volume fraction] 39.9 % Normal 37-47 [facility] Comment on above: Performed By: #### L 100.0500, L400.7600, BTSPAT #### [facility] [address] [place], [address] Hemoglobin (Bld) [Mass/Vol] 13.4 g/dL Normal 12.0-15.0 [facility] Comment on above: Performed By: #### L 100.0500, L400.7600, BTSPAT #### [facility] [address] [place], [address] MCH (RBC) [Entitic mass] 30.7 pg Normal 27.0-32.0 [facility] Comment on above: Performed By: #### L 100.0500, L400.7600, BTSPAT #### [facility] [address] [place], [address] MCHC (RBC) [Mass/Vol] 33.6 g/dL Normal 32-36 [facility] Comment on above: Performed By: #### L 100.0500, L400.7600, BTSPAT #### [facility] [address] [place], [address] MCV (RBC) [Entitic vol] 91.5 fL Normal 81-99 [facility] Comment on above: Performed By: #### L 100.0500, L400.7600, BTSPAT #### [facility] [address] [place], [address] Platelet mean volume (Bld) [Entitic vol] 10.6 fL Normal 6.2-12.0 [facility] Comment on above: Performed By: #### L 100.0500, L400.7600, BTSPAT #### [facility] [address] [place], [address] Platelets (Bld) [#/Vol] 301 10*3/uL Normal 150-450 [facility] Comment on above: Performed By: #### L 100.0500, L400.7600, BTSPAT #### [facility] [address] [place], [address] RBC (Bld) [#/Vol] 4.36 10*6/uL Normal 4.2-5.4 [facility] Comment on above: Performed By: #### L 100.0500, L400.7600, BTSPAT #### [facility] [address] [place], [address] RDW SD 41.5 fl Normal 35.1-43.9 [facility] Comment on above: Performed By: #### L 100.0500, L400.7600, BTSPAT #### [facility] [address] [place] [place], [address] WBC (Bld) [#/Vol] 10.3 10*3/uL Normal 4.4-11.0 [facility] Comment on above: Performed By: #### L 100.0500, L400.7600, BTSPAT #### [facility] [address] [place], [address] Discharge Instructionon 09-12 Discharge Instruction [facility] Medical Records Department [address] [place] [address] Instructions for Home/Discharge Instructions 10/01/23 1255 MR#: [id number] Acct: [id number] Name: BRITTNAY TRIANA Rep #: [id number] : 1975 48 From: Janae Roper MD PCP: Dr. Glenny Cordoba MD Status:DEP [facility] Discharge Instructions Diet Discharge Diet: No restrictions Activity Discharge Activity: Return to Normal Activity, May Shower and May Take a Tub Bath (after 1 week) May resume sexual activity in: 1-2 weeks Weight Bearing Status: Weight bearing as tolerated Lifting Restrictions: none Dressing / Incision Call your doctor if you observe: Fever of 101 or Higher, Using more than 1 pad per hour, Shortness of breath and Uncontrolled pain Follow Up Care Please Follow Up With: Janae Roper MD When: Call [phone] to schedule appointment. Test Results: Test results from this visit will be discussed in further detail at your follow-up appointment, if applicable. Discharge Plan Admission Attending Provider: Janae Roper Primary Care Provider: Glenny Cordoba Instructions Print Language: [place] Islander Discharge Orders/Prescriptions Prescriptions: No Action acetaminophen [Tylenol Extra Strength] 500 mg tablet 500 mg PO Q6H PRN (Reason: pain) ramipril 1.25 mg capsule 1.25 mg PO DAILY amlodipine 10 mg tablet 10 mg PO DAILY Patient Comments: TAKE 1 TABLET BY MOUTH EVERY DAY hydroxyzine HCl 25 mg tablet 25 mg PO .PRN PRN (Reason: anxiety) Patient Comments: 1 TABLET AT BEDTIME FOR SLEEP, ALLERGIES, AND ANXIETY metformin 500 MG tablet 500 mg PO BID spironolactone 50 MG tablet 50 mg PO DAILY Patient Comments: Referrals / Follow Up: Glenny Cordoba MD [Primary Care Provider] - Disposition Disposition (needs filled in before D/C Order can be placed): Home, Self Care 10/01/23 1610 Janae Roper MD CC: Dr. Glenny Cordoba MD Signed [facility] MR/POSTOP.Shaun 10-01-2023 MR/POSTOP.[facility] Medical Records Department [address] [place] [address] Anesthesia Postop Eval I 10/01/23 1301 MR#: [id number] Acct: [id number] Name: BRITTANY TRIANA Rep #: [id number] : 1975 48 From: Carolina Carrero CRNA PCP: Dr. Glenny Cordoba MD Status:REG SD Y Race: C Location: [place] [address] Anesthesia: Postop Eval I Current Vital Signs Temperature: 97.8 F Pulse Rate: 74 Blood Pressure: 118/63 Respiratory Rate: 16 Pulse Ox: 100 Oxygen Delivery Method: Room Air Assessment Airway patent: Yes Spontaneous unlabored respirations: Yes Mental status: Asleep nausea: No Vomiting: No Anesthesia Complication: No Fluid Hydration Crystalloid volume administer (ml): 700 Total IV fluid infused: 700 Progress Note Anesthesia document: Postop Eval 1 completed: Yes 10/01/23 1301 Date Carolina Carrero [employer] Cosigner Signature: Date CC: Signed Normal [facility] MR/[id number] 10-01-2023 [facility] Medical Records Department [address] [place] [address] Anesthesia Postop Eval II 10/01/23 1658 MR#: [id number] Acct: [id number] Name: BRITTANY TRIANA Ivonne Rep #: [id number] : 1975 48 From: Calderon Mar MD PCP: Dr. Glenny Cordoba MD Status:[facility] Y Race: C Location: [facility] Anesthesia Postop Eval I Sum Postop Eval Completion status Anesthesia document: Postop Eval 1 completed: Yes Anesthesia Postop Eval I Summary Anesthesia Postop Eval I Summary: Anesthesia Postop Eval I: Assessment Summary Airway patent Yes 10/01/23 13:01 [employer]IVER.BLAINEOBY Spontaneous unlabored Yes 10/01/23 13:01 [employer].SKOBY respirations Mental status Asleep 10/01/23 13:01 [employer].SKOBY nausea No 10/01/23 13:01 [employer].SKOBY Vomiting No 10/01/23 13:01 [employer].SKOBY Anesthesia Postop Eval I: Fluid Summary Crystalloid volume administer 700 10/01/23 13:01 [employer].BLAINEOBY (ml) Colloids volume administered ( ml) Blood Product volume administered (ml) Total IV fluid infused 700 10/01/23 13:01 JEFF Anesthesia Postop Eval I: Summary Notes Anesthesia Complication No 10/01/23 13:01 [employer] 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 Glenny Cordoba MD Status:[facility] Location: [facility] Problems Associated Problem List Diagnoses (1) Abnormal uterine bleeding: Report of Operation Date of Procedure: 10/01/23 Pre-Operative Diagnosis: see problem list Post-Operative Diagnosis: same Surgery/Procedure Performed:: d and c hysteroscopy jazlyn ablation Description of Surgical Findings:: nl uterine cavity Surgeon: Janae Roper senior account executive: None Type of Anesthesia: Local MAC Special Medications: none Specimen's removed: emc Drains: none Estimated Blood Loss (mL): 25 Fluids Replaced: crystalloid Description of Procedure: Patient was prepped and draped in a normal sterile fashion under MAC anesthesia. A weighted speculum was placed in the vagina and the anterior lip of the cervix was grasped with a single-tooth tenaculum. A paracervical block was placed with 1% lidocaine. Cervix was progressively dilated to allow passage of a 5 mm hysteroscope. The lining was fully visualized and noted to have thickened lining . Uterine sounded to 9.5 cm. Curettage was performed and tissue removed , sent to pathology. The Jazlyn device was opened and the cavity length was found to be 5.5 cm. Device was inserted into the uterus and balloon inflated and device deployed. Integrity of the cavity was confirmed and a 2 minute treatment cycle was completed without complication. All instruments were removed from the vagina and excellent hemostasis was noted. Patient was awoken and taken to recovery in stable condition. Grafts/Implants Used: none Procedure Start Time: 12:38 Procedure Stop Time: 12:43 Complications none Admit VTE Documentation VTE Present on Admission: No VTE Mechan Device Prophylaxis: SCD's Multi Select Codes Urinary/Genital Urinary/Genital CPT Codes: 86871 Jazlyn/Novasure 10/01/23 1254 Cosigner Signature (if applicable): CC: Dr. Glenny Cordoba MD; Dr. Janae Roper MD Signed ADDENDUM by Dr. Janae Roper MD on 10/30/23 at 0941 Procedures Urinary/Genital 52xxx-59xxx: 15396 Rollerball/hydrotherma l endo ablation 10/30/23 0941 Cosigner Signature (if applicable): cc: Dr. Glenny Cordoba MD; Dr. Janae Roper MD * Signed Normal [facility] ,Urineon 10-01-2023 Beta HCG ( test) Ql (U) Negative Normal [facility] Comment on above: Result Comment: Very dilute urine specimens, as indicated by a low specific gravity, may not contain credit resolution representative levels of hCG. If is still suspected, a first morning urine specimen should be collected 48 hours later and tested. Performed By: #### L 100.0500, L400.7600, BTSPAT #### [facility] [address] [place], [address] Surgery Specimen Level Merlyn 10-01-2023 Surgery Specimen Level IV ---- Patient Age/Sex Location Account Attending Physician ---- TRIANABRITTANY Bryan Ivonne 48/F [facility] [id number] Dr. Janae Roper MD ---- Specimen: [id number] Received: 10/01/23 Status: KENIA Tinajero Num: [id number] Spec Type: ENDOM BX/C Subm Dr: Dr. Janae Roper MD HEADER OPERATION: Hysteroscopy, Jazlyn Escamilla PRE-OP DIAGNOSIS: Abnormal uterine bleeding TISSUE SUBMITTED: Endometrial curettings ---- MICROSCOPIC DIAGNOSIS Endometrial curettings: Disordered proliferative endometrium to simple endometrial hyperplasia without atypia and with glandular and stromal breakdown. Fragments of benign ectocervical and endocervical mucosa with chronic inflammation. See comment. 10/02/2023 COMMENT Clinical correlation and appropriate follow up are necessary. MICROSCOPIC DESCRIPTION Slides are reviewed. GROSS DESCRIPTION Received in fixative is one container labeled with the patient's name and designated Endometrial curettings." The specimen consists of multiple irregular fragments of hemorrhagic mucoid tissue that in aggregate measure 5.0 x 3.0 x 0.2 cm. The specimen is totally submitted in two cassettes. 10/01/2023 TC:5 CPT:71029 ---- Patient Age/Sex Location Account Attending Physician ---- BRITTANY TRIANA 48/F [facility] [id number] Dr. Janae Roper MD ---- Signed (signature on file) Dr. River Toussaint MD 10/02/23 1034 ---- [facility] Comment on above: Performed By: #### P SUIV #### [facility] [address] [place], [address] Type AND Screen - PAT ONLYon 10-01-2023 Ab SCREEN GEL Negative Normal [facility] Comment on above: Order Comment: Surge ry Date: 10/01/23 Reason for Laboratory Test PREOP 20231001 No N N S HYSTEROSCOPY D C ABLATION Performed By: #### L 100.0500, L400.7600, BTSPAT #### [facility] [address] [place], [address] PAP IG HPV APTIMA 16/18,45on 09-11-2023 ADEQ Comment Normal . [facility] Comment on above: Order Comment: Speci men Comment: [id number] Specimen Comment: No. of containers..01 ThinPrep Vial Result Comment: Sati sfactory for evaluation. Endocervical and/or squamous metaplastic cells (endocervical component) are present. Performed By: #### L 7400.0280 #### [facility] [address] [place], [address] COMM . Normal . [facility] Comment on above: Order Comment: Speci men Comment: [id number] Specimen Comment: No. of containers..01 ThinPrep Vial Performed By: #### L 7400.0280 #### [facility] [address] [place], [address] COMMENT Comment Normal . [facility] Comment on above: Order Comment: Speci men Comment: [id number] Specimen Comment: No. of containers..01 ThinPrep Vial Result Comment: This liquid based ThinPrep(R) pap test was screened with the use of an image guided system. Performed By: #### L 7400.0280 #### [facility] [address] [place], [address] DIAG Comment Normal . [facility] Comment on above: Order Comment: Speci men Comment: [id number] Specimen Comment: No. of containers..01 ThinPrep Vial Result Comment: NEGA TIVE FOR INTRAEPITHELIAL LESION OR MALIGNANCY. THIS SPECIMEN WAS RESCREENED PART OF OUR RETAIL SUPERVISOR PROGRAM. Performed By: #### L 7400.0280 #### [facility] [address] [place], [place], [id number] HPV APTIMA, HR Negative Normal Negative [facility] Comment on above: Order Comment: Speci men Comment: [id number] Specimen Comment: No. of containers..01 ThinPrep Vial Result Comment: This nucleic acid amplification test detects fourteen high- risk HPV types (16,18,31,33,35,39,45,51,52,56,58,59,66,68) without differentiation. Performed By: #### L 7400.0280 #### [facility] [address] [place], [place], [id number] HPV Laly Rfx Comment Normal . [facility] Comment on above: Order Comment: Speci men Comment: [id number] Specimen Comment: No. of containers..01 ThinPrep Vial Result Comment: Crit eria not met, HPV Genotype not performed. Performed at: [facility] [id number] [place] [id number] Grease And Tallow Pumper: Charlie Tucker MD, Phone: [phone] Performed at: - [address] [id number] Gre[employer] And Tallow Pumper: Cata Winters MD, Phone: [phone] Performed at: = - [address] [id number] Grease And Tallow Pumper: Cata Winters MD, Phone: [phone] Performed By: #### L [id number] #### [facility] [address] [place], [place], [id number] PAPSMR Comment Normal . [facility] Comment on above: Order Comment: Speci men Comment: [id number] Specimen Comment: No. of containers..01 ThinPrep Vial Result Comment: The Pap smear is a screening test designed to aid in the detection of premalignant and malignant conditions of the uterine cervix. It is not a diagnostic procedure and should not be used as the sole means of detecting cervical cancer. Both false-positive and false-negative reports do occur. Performed By: #### L 7400.0280 #### [facility] [address] [place], [place], [address] PERFORM Comment Normal . [facility] Comment on above: Order Comment: Speci men Comment: [id number] Specimen Comment: No. of containers..01 ThinPrep Vial Result Comment: Sofia Lopez, Packaging Operator (ASCP) Performed By: #### L [id number] #### [facility] [address] [place], [address] QC REV Comment Normal . [facility] Comment on above: Order Comment: Speci men Comment: [id number] Specimen Comment: No. of containers..01 ThinPrep Vial Result Comment: Nick Garcia Packaging Operator (ASCP) Performed By: #### L 7400.0280 #### [facility] [address] [place], [address] Pelvic w/ Transvaginalon Pelvic w/ Transvaginal [facility] Imaging Services [address] [place] [address] Pelvic w/ Transvaginal MR#: [id number] Acct: [id number] Name: MARKIEBRITTANY L Rep #: [id number] : 1975 F 48 From: Linette Perez MD PCP: Dr. Glenny Cordoba MD Status: [facility] Study: Pelvic w/ Transvaginal Date of Exam: 09/11/23 Exam# [id number] Ordering Dr: Janae Roper [id number] EXAM: US PELVIS TRANSABDOMINAL AND TRANSVAGINAL, COMPLETE CLINICAL INDICATION: Abnormal uterine bleeding TECHNIQUE: Transabdominal and transvaginal pelvic ultrasound was performed with grayscale and color Doppler imaging. Transvaginal imaging was used for better evaluation of the endometrium and adnexa. COMPARISON: Unenhanced CT October 31, 2018. 2 metallic densities in the left iliac fossa and left adnexa respectively noted on prior CT. Tiny nonobstructing stone was noted in the right kidney. FINDINGS: UTERUS/CERVIX: Multiple small nabothian cervical cysts are noted on transvaginal exam. 10.8 cm x 6.6 cm x 5.8 cm. There is no uterine mass. Heterogeneous myometrium. Measured 9 mm fundal endometrial stripe thickness on transabdominal exam, measured 1.5 cm endometrial thickness on transvaginal exam. RIGHT OVARY: 4.2 cm x 2.7 cm x 3.4 cm with small follicle of 2 cm x 1.5 cm x 1.9 cm and 1.7 cm x 1.2 cm x 1.4 cm paraovarian cyst measured on transvaginal exam. Non-enlarged, normal echogenicity. Blood flow is present in the right ovary. LEFT OVARY: Not identified. No suspicious left adnexal mass. FREE FLUID: None. BLADDER: Unremarkable as visualized. 14.6 cm x 8.3 cm x 12.5 cm on transabdominal exam. Wall is normal thickness for degree of distention. US/Pelvic w/ Transvaginal IMPRESSION: Borderline thickened 1.5 cm uterine endometrium. Correlate with the secretory phase of menstrual cycle, nonspecific. Very heterogeneous myometrium without discrete mass. Numerous small nabothian cervical cysts. 2 cm right ovarian follicle and 1.7 cm right paraovarian cyst. Not suspicious by size criteria. Electronically Signed: Linette Perez MD at 6:00 EDT , CC: Dr. Glenny Cordoba MD; Dr. Janae Roper MD Lathing Supervisor: Signed Normal [facility] Display Department Manager Office Visit Reporton 09-06-2023 Display Department Manager Office Visit Report [facility] [address] [place] [address] OFFICE VISIT Date of Service: 09/06/23 MR#: [id number] Acct: [id number] Name: BRITTANY TRIANA Rep #: [id number] : 1975 Provider: Dr. Janae doherty MD Age/Sex: 48/F Location: [facility] Status: Signed Intake Vital Signs 06/22/20 14:46 09/06/23 15:27 09/06/23 15:29 Height 5 ft 6 in 5 ft 6 in 5 ft 6 in Weight: 183 lb 6 oz BMI 29.5 BP 128/80 H Intake Visit Reasons: ENDOMETRIAL ABLASION CONSULT (BENJYROYALTONVida) Dealer Relationship Manager Required: No Is patient in pain?: No Allergies No Known Allergies Allergy (Verified 09/06/23 15:18) Medications ???Medication ???Instructions ???Recorded ???Confirmed ???Type metformin 500 mg tablet 500 mg PO DAILY dm 10/27/14 09/06/23 History spironolactone 50 mg tablet 50 mg PO DAILY bp 10/27/14 09/06/23 History acetaminophen 500 mg tablet 500 mg PO Q6H PRN 03/14/22 09/06/23 History (Tylenol Extra Strength) ibuprofen 200 mg tablet 220 mg PO Q6H PRN 03/14/22 09/06/23 History amlodipine 10 mg tablet mg PO 10/18/22 09/06/23 History cholecalciferol (vitamin D3) 50 PO 10/18/22 09/06/23 History mcg (2,000 unit) capsule hydroxyzine HCl 25 mg tablet mg PO 10/18/22 09/06/23 History ramipril 1.25 mg capsule mg PO 10/18/22 09/06/23 History Is last menstrual period known: Yes Last Menstrual Period: 07/13/23 Post menopausal: No Patient : No : No Control Method: Tubal PFSH Medical History (Updated 09/06/23 @ 16:[address] 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 she will bleed through proteciton in an hour. she has some hot flashes. she doesn't sleep very well. Female Reproductive History Last Menstrual Period: 07/13/23 Cycle Length: 21-35 Bleeding Duration: 6 Frequency of changing protection: 1 hr Questions: metorrhagia: No, sexually active: Yes, dyspareunia: No and PCB: No Menopausal Symptoms: No hot flashes, No night sweats, No weight change, No mood changes, No difficulty concentrating, No sleep problems and No change in libido History 2 Elective abortions Hx Para 2 Spontaneous abortions Hx # Term Pregnancies Ectopic pregnancies Hx # Pregnancies Multiple births # of living children 2 Past Pregnancies Del. Date Name GA/Weeks Outcome Route Bth Weight Gen Labor Lgth Anesthesia Del Locatn Provider FOB 01/30/98 Luis Daniel 08/04/01 Shirin Carl Constitutional: Reports as per HPI; Denies fatigue, increased appetite, poor appetite, night sweats, weight gain or weight loss ENT ENT: Reports system reviewed and no additional complaints, except as documented Cardio Card: Denies chest pain Resp Resp: Denies cough or dyspnea GI GI: Reports as per HPI; Denies abdominal pain, bloating, constipation, nausea or vomiting : Reports as per HPI and other; Denies difficulty voiding, dysuria, hematuria, hot flashes, nipple discharge, pelvic pain, prolapse symptoms, urinary frequency, urinary incontinence, urinary urgency, vaginal discharge, vaginal dryness, vaginal odor or vaginal pruritus Musc Musc: Denies arthralgias, back pain or muscle weakness Skin Skin/Breast: Denies changing lesions, breast mass, breast pain, breast skin changes or nipple discharge Neuro Neuro: Reports system reviewed and no additional complaints, except as documented Psych Psych: Denies anxiety, change in libido, depression or difficulty concentrating Endo Endo: Denies cold intolerance, excessive sweating, heat intolerance or polydipsia Jonny/Lymph Hematologic/Lymphatic: Denies easy bleeding (more content not included)... Normal [facility] Surgery Specimen Level Merlyn 09-06-2023 Surgery Specimen Level IV ---- Patient Age/Sex Location Account Attending Physician ---- BRITTANY TRIANA 48/F LAB [id number] Dr. Janae Roper MD ---- Specimen: [id number] Received: 09/06/23 Status: KENIA Tinajero Num: [id number] Spec Type: ENDOM BX/C Oswaldo Dr: Dr. Janae Roper MD HEADER OPERATION: Endometrial biopsy PRE-OP DIAGNOSIS: Abnormal uterine bleeding TISSUE SUBMITTED: Endometrial lining ---- MICROSCOPIC DIAGNOSIS Endometrial biopsy: Proliferative endometrium. [facility] 09/10/2023 MICROSCOPIC DESCRIPTION Slides are reviewed. GROSS DESCRIPTION Received is one container labeled with the patient's name and not further designated. The specimen consists of multiple irregular fragments of hemorrhagic soft tissue that in aggregate measure 3.0 x 2.5 x 0.2 cm. The specimen is totally submitted in one cassette. [facility] 09/09/2023 TC:4 CPT:83566 ---- Patient Age/Sex Location Account Attending Physician ---- BRITTANY TRIANA 48/F LAB [id number] Dr. Janae Roper MD ---- Signed (signature on file) Dr. River Toussaint MD 09/10/23 1045 ---- Normal [facility] Comment on above: Performed By: #### P SUV #### [facility] [address] [place] [address], [id number] Thyroid Stim Hormone (TSH)on 09-06-2023 TSH 3.07 uIU/mL Normal 0.358-3.74 [facility] Comment on above: Performed By: #### P SUV #### [facility] [address] [place] [address], [id number] ABD Limited w/ Elastographyo n 06-08-2023 ABD Limited w/ Elastography [facility] Imaging Services [address] [place] [id number] ABD Limited w/ Elastography MR#: [id number] Acct: [id number] Name: BRITTANY TRIANA Rep #: [id number] : 1975 F 48 From: Simon hallman MD PCP: Dr. Glenny Cordoba MD Status: [facility] Study: ABD Limited w/ Elastography Date of Exam: 05/13 09/03 Exam# [id number] Ordering Dr: Glenny Cordoba MD [id number] STUDY: ABDOMINAL ULTRASOUND - RIGHT UPPER QUADRANT; ELASTOGRAPHY REASON FOR VISIT: Female, 48 years old. Fatty infiltration of the liver. TECHNIQUE: Ultrasound evaluation of the right upper quadrant was performed with real-time and static solomon-scale imaging. Point quantification shear wave elastography was performed (Purch). TECHNICAL QUALITY: Adequate. COMPARISON: None. FINDINGS: Liver: The liver is enlarged and measures 18.7 cm. There is increased echogenicity consistent with fatty infiltration. Findings suggestive of focal fatty sparing in the region of the gallbladder fossa. The bile ducts are within normal limits. There is hepatic color flow. The direction of portal flow is hepatopetal. There is no demonstrated mass lesion. Median liver stiffness measured 5.8 kPa. Gallbladder: The patient is status post cholecystectomy. Common Bile Duct (C.B.D.): The common bile duct measures 5.3 mm. Pancreas: There is normal echogenicity of the visualized pancreas. There is no demonstrated pancreatic mass or cyst. Right Kidney: Normal size of the right kidney. The right kidney measures 11.2 cm x 5.8 cm x 5.3 cm. Normal renal cortex. The right cortex measures 1.7 cm. There is no demonstrated renal mass or cyst. There is no right hydronephrosis. US/ABD Limited w/ Elastography IMPRESSION: 1. Liver stiffness measures 5.8 kPa compatible with F0-F1 (Normal to mild liver fibrosis) Metavir score. Electronically Signed: Simon Ndiaye MD at 9:40 EDT , CC: Dr. Glenny Cordoba MD Lathing Supervisor: Signed Normal [facility] Absolute lymphocyte countOrd ered By: Glenny Cordoba on 05-14-2023 Lymphocytes Auto (Unsp spec) [#/Vol] 2.86 10*3/uL 0.83-4.51 [facility] Automated lymphocyte count a s percentage of total leukocytesOrdered By: Glenny Cordoba on 05-14-2023 Lymphocytes/100 WBC Auto (Unsp spec) 27.1 % 19-41 [facility] Basophil percentageOrdered B y: Glenny Cordoba on 05-14-2023 Basophils/100 WBC (Bld) 0.6 % 0-1 [facility] Bilirubin [Mass/Vol] 0.50 mg/dL 0.20-1.00 [facility] Comment on above: For patients on eltr ombopag therapy, use of Dimension [place] TBIL is not recommended. Chloride [Moles/Vol] 105 mmol/L 98-107 [facility] Eosinophils/100 WBC (Bld) 4.4 % 0-5 [facility] Glucose [Mass/Vol] 209 mg/dL 74-[address] [facility] Comment on above: Glucose result great er than or equal to 200 mg/dLsuggests DIABETES MELLITUS per A.D.A. criteria. Hemoglobin (Bld) [Mass/Vol] 13.7 g/dL 12.0-15.0 [facility] Monocytes/100 WBC (Bld) 5.9 % 0-10 [facility] Neutrophils (Bld) [#/Vol] 6.5 10*3/uL 2.0-7.7 [facility] Neutrophils/100 WBC (Bld) 61.8 % 47-70 [facility] Potassium [Moles/Vol] 3.8 mmol/L 3.5-5.1 [facility] Comment on above: Slight Hemolysis, Re sult may be falsely increased. Protein [Mass/Vol] 7.6 g/dL 6.4-8.[address] [facility] Sodium [Moles/Vol] 136 mmol/L 136-[address] [facility] WBC (Bld) [#/Vol] 10.6 10*3/uL 4.4-11.0 [facility] Determination of erythrocyte mean corpuscular volume (MCV)Ordered By: Glenny Cordoba on 05-14-2023 MCV (RBC) [Entitic vol] 91.8 fL 81-99 [facility] Erythrocyte distribution wid th ratioOrdered By: Glenny Cordoba on 05-14-2023 Erythrocyte distribution width (RBC) [Ratio] 12.8 % 11.6-14.6 [facility] Erythrocyte distribution wid th standard deviationOrdered By: Glenny Cordoba on 05-14-2023 Erythrocyte distribution width (RBC) [Entitic vol] 43.1 fL 35.1-43.9 [facility] Hematocrit Auto (Bld) [Volum e fraction]Ordered By: Glenny Cordoba on 05-14-2023 Hematocrit (Bld) [Volume fraction] 40.3 % 37-47 [facility] Immature granulocytes/100 WB C Auto (Bld)Ordered By: Glenny Cordoba on 05-14-2023 Immature granulocytes/100 WBC (Bld) 0.200 % 0.0-0.9 [facility] Comment on above: IG% - Immature Granu locytes (promyelocytes, myelocytes and metamyelocytes) > 1% indicates that a LEFT SHIFT is Present. Laboratory - Chemistry and C hemistry - challengeOrdered By: Glenny Cordoba on 05-14-2023 Albumin/Globulin [Mass ratio] 1.0 {ratio} 0.9-2.4 [facility] ALP [Catalytic activity/Vol] 89 U/L 45-117 [facility] ALT [Catalytic activity/Vol] 74 U/L 13-56 [facility] CO2 [Moles/Vol] 24.0 mmol/L 21.0-32.0 [facility] Ferritin [Mass/Vol] 98 ng/mL 8-252 [facility] Globulin (S) [Mass/Vol] 3.8 g/dL 2.2-4.2 [facility] Urea nitrogen/Creatinine [Mass ratio] 9.8 mg/mg 10-20 [facility] - Hematology and Cell countsOrdered By: Glenny Cordoba on 05-14-2023 MCH (RBC) [Entitic mass] 31.2 pg 27.0-32.0 [facility] MCHC (RBC) [Mass/Vol] 34.0 g/dL 32-36 [facility] Nucleated RBC/100 WBC (Bld) [Ratio] 0 % 0-5 [facility] Platelet mean volume (Bld) [Entitic vol] 10.8 fL 6.2-12.0 [facility] Platelets (Bld) [#/Vol] 320 10*3/uL 150-450 [facility] No Panel InformationOrdered By: Glenny Cordoba on 05-14-2023 Estimated GFR (MDRD) Amer 112 mL/min >60 [facility] Comment on above: GFR Calc Estimated GFR (MDRD) Non-Af Amer 92 mL/min >60 [facility] Comment on above: Non- GFR Calc Urine Microalbumin/Creatinin e Ratio 49.9 mg/g CRE <30 [facility] RBC Auto (Bld) [#/Vol]Ordere d By: Glenny Cordoba on 05-14-2023 RBC (Bld) [#/Vol] 4.39 10*6/uL 4.2-5.4 [facility] Serum or plasma calcium satish urement (mass/volume)Ordered By: Glenny Cordoba on 05-14-2023 Calcium [Mass/Vol] 9.3 mg/dL 8.5-10.[address] [facility] Serum or plasma creatinine m easurement (mass/volume)Ordered By: Glenny Cordoba on 05-14-2023 Creatinine [Mass/Vol] 0.72 mg/dL 0.55-1.02 [facility] Comment on above: The validity of the calculated GFR & GFRAA in patients over 70 years has not been determined. Clinical correlation is essential. Serum or plasma urea nitroge n measurement (mass/volume)Ordered By: Glenny Cordoba on 05-14-2023 Urea nitrogen [Mass/Vol] 7 mg/dL 7-18 [facility] Thin prep Papanicolaou smear with manual screeningOrdered By: Glenny Cordoba on 05-14-2023 Thin prep Papanicolaou smear with manual screening 3.8 g/dL 3.2-5.0 [facility] Thin prep Papanicolaou smear with manual screening 54 U/L 15-37 [facility] Comment on above: Slight Hemolysis, Re sult may be falsely increased. Thin prep Papanicolaou smear with manual screening 7 5-15 [facility] Thin prep Papanicolaou smear with manual screening 80.4 mg/L NO RANGE EST. [facility] Urine creatinine measurement (mass/volume)Ordered By: Glenny Cordoba on 05-14-2023 Creatinine (U) [Mass/Vol] 161.00 mg/dL NO RANGE EST. [facility] Whole blood hemoglobin A1c/t otal hemoglobin ratio (mass fraction)Ordered By: Glenny Cordoba on 05-14-2023 HbA1c (Bld) [Mass fraction] 6.6 % 3.8-5.6 [facility] Comment on above: Normal < 5.7 % Predi abetic 5.7 - 6.4 % Diabetic >or= 6.5 % Please note range changes. Basophil percentageOrdered B y: Dr. Cordoba on 07-31-2022 Chloride [Moles/Vol] 105 mmol/L 98-107 [facility] Glucose [Mass/Vol] 129 mg/dL 74-[address] [facility] Comment on above: Fasting Glucose resu lt greater than or equal to 126 mg/dL suggests DIABETES MELLITUS per A.D.A. criteria. Potassium [Moles/Vol] 3.8 mmol/L 3.5-5.1 [facility] Sodium [Moles/Vol] 136 mmol/L 136-[address] [facility] Laboratory - Chemistry and C hemistry - challengeOrdered By: Dr. Cordoba on 07-31-2022 CO2 [Moles/Vol] 24.0 mmol/L 21.0-32.0 [facility] Urea nitrogen/Creatinine [Mass ratio] 14.8 mg/mg 10- [facility] No Panel InformationOrdered By: Dr. Cordoba on 07-31-2022 Estimated GFR (MDRD) Amer 120 mL/min >60 [facility] Comment on above: GFR Calc Estimated GFR (MDRD) Non-Af Amer 99 mL/min >60 [facility] Comment on above: Non- GFR Calc Serum or plasma calcium satish urement (mass/volume)Ordered By: Dr. Cordoba on 07-31-2022 Calcium [Mass/Vol] 9.5 mg/dL 8.5-10.[address] [facility] Serum or plasma creatinine m easurement (mass/volume)Ordered By: Dr. Cordoba on 07-31-2022 Creatinine [Mass/Vol] 0.68 mg/dL 0.55-1.02 [facility] Comment on above: The validity of the calculated GFR & GFRAA in patients over 70 years has not been determined. Clinical correlation is essential. Serum or plasma urea nitroge n measurement (mass/volume)Ordered By: Dr. Cordoba on 07-31-2022 Urea nitrogen [Mass/Vol] 10 mg/dL 7-18 [facility] Thin prep Papanicolaou smear with manual screeningOrdered By: Dr. Cordoba on 07-31-2022 Thin prep Papanicolaou smear with manual screening 7 5-15 [facility] Absolute lymphocyte countOrd ered By: Dr. Cordoba on 07-03-2022 Lymphocytes Auto (Unsp spec) [#/Vol] 3.72 10*3/uL 0.83-4.51 [facility] Basophil percentageOrdered B y: Dr. Cordoba on 07-03-2022 Basophils/100 WBC (Bld) 0.6 % 0-1 [facility] Bilirubin [Mass/Vol] 0.60 mg/dL 0.20-1.00 [facility] Comment on above: For patients on eltr ombopag therapy, use of Dimension [place] TBIL is not recommended. Chloride [Moles/Vol] 103 mmol/L 98-107 [facility] Eosinophils/100 WBC (Bld) 2.4 % 0-5 [facility] Glucose [Mass/Vol] 85 mg/dL 74-[address] [facility] Neutrophils (Bld) [#/Vol] 6.7 10*3/uL 2.0-7.7 [facility] Neutrophils/100 WBC (Bld) 57.0 % 47-70 [facility] Potassium [Moles/Vol] 4.0 mmol/L 3.5-5.1 [facility] Protein [Mass/Vol] 7.7 g/dL 6.4-8.[address] [facility] Sodium [Moles/Vol] 136 mmol/L 136-[address] [facility] WBC (Bld) [#/Vol] 11.8 10*3/uL 4.4-11.0 [facility] Blood erythrocytes count (nu mber/volume)Ordered By: Dr. Cordoba on 07-03-2022 RBC (Bld) [#/Vol] 4.33 10*6/uL 4.2-5.4 [facility] Blood hemoglobin measurement (mass/volume)Ordered By: Dr. Cordoba on 07-03-2022 Hemoglobin (Bld) [Mass/Vol] 13.8 g/dL 12.0-15.0 [facility] Blood lymphocytes/100 leukoc ytesOrdered By: Dr. Cordoba on 07-03-2022 Lymphocytes/100 WBC (Bld) 31.4 % 19-41 [facility] Blood monocytes/100 leukocyt esOrdered By: Dr. Cordoba on 07-03-2022 Monocytes/100 WBC (Bld) 8.3 % 0-10 [facility] Blood platelet mean volumeOr dered By: Dr. Cordoba on 07-03-2022 Platelet mean volume (Bld) [Entitic vol] 10.8 fL 6.2-12.0 [facility] Determination of erythrocyte mean corpuscular volume (MCV)Ordered By: Dr. Cordoba on 07-03-2022 MCV (RBC) [Entitic vol] 96.1 fL 81-99 [facility] Hematocrit Auto (Bld) [Volum e fraction]Ordered By: Dr. Cordoba on 07-03-2022 Hematocrit (Bld) [Volume fraction] 41.6 % 37-47 [facility] - Chemistry and C hemistry - challengeOrdered By: Dr. Cordoba on 07-03-2022 ALP [Catalytic activity/Vol] 70 U/L 45-117 [facility] ALT [Catalytic activity/Vol] 36 U/L 13-56 [facility] CO2 [Moles/Vol] 27.0 mmol/L 21.0-32.0 [facility] Cobalamin (Vitamin B12) [Mass/Vol] 520 pg/mL 211-911 [facility] Globulin (S) [Mass/Vol] 4.0 g/dL 2.2-4.2 [facility] Urea nitrogen/Creatinine [Mass ratio] 12.8 mg/mg 10-20 [facility] - Hematology and Cell countsOrdered By: Dr. Cordoba on 07-03-2022 Erythrocyte distribution width (RBC) [Entitic vol] 45.0 fL 35.1-43.9 [facility] Erythrocyte distribution width (RBC) [Ratio] 12.7 % 11.6-14.6 [facility] Immature granulocytes/100 WBC (Bld) 0.300 % 0.0-0.9 [facility] Comment on above: IG% - Immature Granu locytes (promyelocytes, myelocytes and metamyelocytes) > 1% indicates that a LEFT SHIFT is Present. MCH (RBC) [Entitic mass] 31.9 pg 27.0-32.0 [facility] Nucleated RBC/100 WBC (Bld) [Ratio] 0 % 0-5 [facility] MCHC Auto (RBC) [Mass/Vol]Or dered By: Dr. Cordoba on 07-03-2022 MCHC (RBC) [Mass/Vol] 33.2 g/dL 32-36 [facility] No Panel InformationOrdered By: Dr. Cordoba on 07-03-2022 Anti-Nuclear Antibody Screen Negative Negative [facility] Comment on above: Performed at: [facility] [facility] [place] [id number] Director: Arsalan Humphrey PhD, Phone: [phone] Estimated GFR (MDRD) Amer 114 mL/min >60 [facility] Comment on above: GFR Calc Estimated GFR (MDRD) Non-Af Amer 94 mL/min >60 [facility] Comment on above: Non- GFR Calc Thyroid Stimulating Hormone (TSH) 2.43 uIU/mL 0.358-3.74 [facility] Platelets bldOrdered By: Dr. Cordoba on 07-03-2022 Platelets (Bld) [#/Vol] 331 10*3/uL 150-450 [facility] Serum or plasma albumin satish urement (mass/volume)Ordered By: Dr. Cordoba on 07-03-2022 Albumin [Mass/Vol] 3.7 g/dL 3.2-5.[address] [facility] Serum or plasma albumin/glob ulin mass ratioOrdered By: Dr. Cordoba on 07-03-2022 Albumin/Globulin [Mass ratio] 0.9 {ratio} 0.9-2.4 [facility] Serum or plasma calcium satish urement (mass/volume)Ordered By: Dr. Cordoba on 07-03-2022 Calcium [Mass/Vol] 9.3 mg/dL 8.5-10.[address] [facility] Serum or plasma creatinine m easurement (mass/volume)Ordered By: Dr. Cordoba on 07-03-2022 Creatinine [Mass/Vol] 0.70 mg/dL 0.55-1.02 [facility] Comment on above: The validity of the calculated GFR & GFRAA in patients over 70 years has not been determined. Clinical correlation is essential. Serum or plasma urea nitroge n measurement (mass/volume)Ordered By: Dr. Cordoba on 07-03-2022 Urea nitrogen [Mass/Vol] 9 mg/dL 7-18 [facility] Thin prep Papanicolaou smear with manual screeningOrdered By: Dr. Cordoba on 07-03-2022 Thin prep Papanicolaou smear with manual screening 23 U/L 15-37 [facility] Thin prep Papanicolaou smear with manual screening 6 5-15 [facility] Thin prep Papanicolaou smear with manual screening Negative Negative [facility] Comment on above: Lyme antibodies not detected. Reflex testing is notindicated.No laboratory evidence of infection with B. burgdorferi(Lyme disease). Negative results may occur in patientsrecently infected (less than or equal to 14 days) with B.burgdorferi. If recent infection is suspected, repeattesting on a new sample collected in 7 to 14 days isrecommended.Performed at: [employer] [id number] Director: Arsalan Humphrey PhD, Phone: [phone] Basophil percentageOrdered B y: Alejandra Benoit on 06-26-2022 Bilirubin [Mass/Vol] 0.80 mg/dL 0.20-1.00 [facility] Comment on above: For patients on eltr ombopag therapy, use of Dimension [place] TBIL is not recommended. Chloride [Moles/Vol] 104 mmol/L 98-107 [facility] Glucose [Mass/Vol] 122 mg/dL 74-[address] [facility] Comment on above: Fasting Glucose resu lt from 100 to 125 mg/dL suggests IMPAIRED HOMEOSTASIS per A.D.A. criteria. Potassium [Moles/Vol] 3.7 mmol/L 3.5-5.1 [facility] Protein [Mass/Vol] 7.4 g/dL 6.4-8.[address] [facility] Sodium [Moles/Vol] 137 mmol/L 136-[address] [facility] Laboratory - Chemistry and C hemistry - challengeOrdered By: Alejandra Benoit on 06-26-2022 ALP [Catalytic activity/Vol] 77 U/L 45-117 [facility] ALT [Catalytic activity/Vol] 48 U/L 13-56 [facility] CO2 [Moles/Vol] 27.0 mmol/L 21.0-32.0 [facility] Globulin (S) [Mass/Vol] 3.8 g/dL 2.2-4.2 [facility] Urea nitrogen/Creatinine [Mass ratio] 13.9 mg/mg 10-20 [facility] No Panel InformationOrdered By: Alejandra Benoit on 06-26-2022 Estimated GFR (MDRD) Amer 126 mL/min >60 [facility] Comment on above: GFR Calc Estimated GFR (MDRD) Non-Af Amer 104 mL/min >60 [facility] Comment on above: Non- GFR Calc Serum or plasma albumin satish urement (mass/volume)Ordered By: Alejandra Benoit on 06-26-2022 Albumin [Mass/Vol] 3.6 g/dL 3.2-5.[address] [facility] Serum or plasma albumin/glob ulin mass ratioOrdered By: Alejandra Benoit on 06-26-2022 Albumin/Globulin [Mass ratio] 0.9 {ratio} 0.9-2.4 [facility] Serum or plasma calcium satish urement (mass/volume)Ordered By: Alejandra Benoit on 06-26-2022 Calcium [Mass/Vol] 9.1 mg/dL 8.5-10.[address] [facility] Serum or plasma creatinine m easurement (mass/volume)Ordered By: Alejandra Benoit on 06-26-2022 Creatinine [Mass/Vol] 0.65 mg/dL 0.55-1.02 [facility] Comment on above: The validity of the calculated GFR & GFRAA in patients over 70 years has not been determined. Clinical correlation is essential. Serum or plasma urea nitroge n measurement (mass/volume)Ordered By: Alejandra Benoit on 06-26-2022 Urea nitrogen [Mass/Vol] 9 mg/dL 7-18 [facility] Thin prep Papanicolaou smear with manual screeningOrdered By: Alejandra Benoit on 06-26-2022 Thin prep Papanicolaou smear with manual screening 23 U/L 15-37 [facility] Thin prep Papanicolaou smear with manual screening 6 5-15 [facility] Basophil percentageOrdered B y: Alejandra Benoit on 01-09-2022 Bilirubin [Mass/Vol] 0.40 mg/dL 0.20-1.00 [facility] Comment on above: For patients on eltr ombopag therapy, use of Dimension [place] TBIL is not recommended. Chloride [Moles/Vol] 102 mmol/L 98-107 [facility] Glucose [Mass/Vol] 117 mg/dL 74-[address] [facility] Comment on above: Fasting Glucose resu lt from 100 to 125 mg/dL suggests IMPAIRED HOMEOSTASIS per A.D.A. criteria. Potassium [Moles/Vol] 4.4 mmol/L 3.5-5.1 [facility] Protein [Mass/Vol] 7.2 g/dL 6.4-8.[address] [facility] Sodium [Moles/Vol] 138 mmol/L 136-[address] [facility] Laboratory - Chemistry and C hemistry - challengeOrdered By: Alejandra Benoit on 01-09-2022 ALP [Catalytic activity/Vol] 66 U/L 45-117 [facility] ALT [Catalytic activity/Vol] 37 U/L 13-56 [facility] CO2 [Moles/Vol] 27.0 mmol/L 21.0-32.0 [facility] Cobalamin (Vitamin B12) [Mass/Vol] 602 pg/mL 211-911 [facility] Globulin (S) [Mass/Vol] 3.5 g/dL 2.2-4.2 [facility] Urea nitrogen/Creatinine [Mass ratio] 12.8 mg/mg 10-20 [facility] No Panel InformationOrdered By: Alejandra Benoit on 01-09-2022 Estimated GFR (MDRD) Amer 115 mL/min >60 [facility] Comment on above: GFR Calc Estimated GFR (MDRD) Non-Af Amer 95 mL/min >60 [facility] Comment on above: Non- GFR Calc Thyroid Stimulating Hormone (TSH) 2.60 uIU/mL 0.358-3.74 [facility] Vitamin D 25-Hydroxy 15.1 ng/mL [facility] Comment on above: Vitamin D 25(OH) Sta tus Range Deficiency <20 ng/mL (50nmol/L) Insufficiency 20 - 30 ng/mL (50 - 75 nmol/L) Sufficiency 30 - 100 ng/mL (75 - 250 nmol/L) Toxicity >100 ng/mL (>250 nmol/L) Serum or plasma albumin satish urement (mass/volume)Ordered By: Alejandra Benoit on 01-09-2022 Albumin [Mass/Vol] 3.7 g/dL 3.2-5.[address] [facility] Serum or plasma albumin/glob ulin mass ratioOrdered By: Alejandra Benoit on 01-09-2022 Albumin/Globulin [Mass ratio] 1.1 {ratio} 0.9-2.4 [facility] Serum or plasma calcium satish urement (mass/volume)Ordered By: Alejandra Benoit on 01-09-2022 Calcium [Mass/Vol] 9.1 mg/dL 8.5-10.[address] [facility] Serum or plasma creatinine m easurement (mass/volume)Ordered By: Alejandra Benoit on 01-09-2022 Creatinine [Mass/Vol] 0.70 mg/dL 0.55-1.02 [facility] Comment on above: The validity of the calculated GFR & GFRAA in patients over 70 years has not been determined. Clinical correlation is essential. Serum or plasma urea nitroge n measurement (mass/volume)Ordered By: Alejandra Benoit on 01-09-2022 Urea nitrogen [Mass/Vol] 9 mg/dL 7-18 [facility] Thin prep Papanicolaou smear with manual screeningOrdered By: Alejandra Benoit on 01-09-2022 Thin prep Papanicolaou smear with manual screening 17 U/L 15-37 [facility] Thin prep Papanicolaou smear with manual screening 9 5-15 [facility] Vital Signs Date Time Vital Sign Value Performing Clinician Israi tiffani 05-01-2024 13:12040 Body height 167.6 cm Norris Mann MD Work Phone: [facility] 05-01-2024 13:12-0400 Body mass index (BMI) [Ratio] 39.85 kg/m2 Norris Mann MD Work Phone: [facility] 05-01-2024 13:12-0400 Body weight 112 kg Norris Mann MD Work Phone: [facility] 05-21-2021 10:14040 Body temperature 98.6 [degF] Lito Murphy MD Work Phone: [facility] 05-21-2021 10:14-0400 Body weight 110.59 kg Lito Murphy MD Work Phone: [facility] 05-21-2021 10:14-0400 Diastolic blood pressure 90 mm[Hg] Lito Murphy MD Work Phone: [facility] 05-21-2021 10:140400 Heart rate 72 /min Lito Murphy MD Work Phone: [facility] 05-21-2021 10:140400 Respiratory rate 16 /min Lito Murphy MD Work Phone: [facility] 05-21-2021 10:140400 SaO2% (BldA) [Mass fraction] 96 % Lito Murphy MD Work Phone: [facility] 05-21-2021 10:140400 Systolic blood pressure 130 mm[Hg] Lito Murphy MD Work Phone: [facility] Encounters Encounter Date Encounter Type Care Provider Facility Start: 06-01-2024 End: 06-01-[address] Glenny Cordoba MD Work Phone: [facility] Work Phone: Start: 06-01-2024 End: 06-01-[address] Glenny Cordoba MD -Outpatient Breast Imaging Work Phone: Start: 06-01-2024 End: 06-01-2024 ambulatory Glenny Cordoba Facility:[facility] Start: 05-25-2024 End: 05-25-2024 Patient encounter procedure Norris Mann MD Work Phone: Orthopaedics Comment on above: Primary osteoarthrit is of both knees (Primary Dx) Start: 05-25-2024 End: 05-25-2024 ambulatory NORRIS MANN Facility:[facility] Start: 05-05-2024 End: 05-05-2024 Telephone encounter Norris Mann MD Work Phone: Orthopaedics Comment on above: gel knee injections Start: 05-01-2024 End: 05-01-2024 ambulatory NORRIS MANN Facility:[facility] Start: 05-01-2024 End: 05-01-2024 Patient encounter procedure Norris Mann MD Work Phone: Orthopaedics Comment on above: Primary osteoarthrit is of both knees (Primary Dx) Start: 02-28-2024 End: 02-28-2024 Patient encounter procedure Aydee Beavers DO Work Phone: Orthopaedics Comment on above: Primary osteoarthrit is of both knees (Primary Dx) Start: 02-28-2024 End: 02-28-2024 ambulatory GLENNY CORDOBA Facility:[facility] Start: 02-28-2024 End: 02-28-2024 Subsequent hospital visit by physician Radio Huang [facility] Work Phone: Radiology Comment on above: Pain [R52] Start: 12-13-2023 End: 12-13-2023 ambulatory Glenny Cordoba Facility:[facility] Start: 12-08-2023 Encounter for other preprocedural examination Janae Roper [facility] Start: 11-26-2023 End: 11-26-2023 ambulatory Glenny Cordoba Facility:[facility] Start: 11-12-2023 ambulatory Janae Ordonez lity:[facility] Start: 11-12-2023 End: 11-12-2023 ambulatory Glenny Cordoba Facility:[facility] Start: 11-11-2023 ambulatory Glenny Cordoba Facility:[facility] Start: 10-31-2023 End: 10-31-2023 ambulatory Glenny Cordoba Facility:[facility] Start: 10-21-2023 ambulatory Glenny Cordoba Facility:[facility] Start: 10-21-2023 End: 10-21-2023 ambulatory Glenny Cordoba Facility:[facility] Start: 10-21-2023 End: 10-21-2023 ambulatory Glenny Cordoba Facility:[facility] Start: 10-16-2023 End: 10-16-2023 ambulatory Glenny Cordoba Facility:[facility] Start: 10-01-2023 End: 10-01-2023 ambulatory Glenny Cordoba Facility:[facility] Start: 09-11-2023 End: 09-11-2023 ambulatory Glenny Cordoba Facility:[facility] Start: 09-06-2023 End: 09-06-2023 ambulatory Glenny Cordoba Facility:[facility] Start: 09-06-2023 End: 09-06-2023 ambulatory Glenny Cordoba Facility:[facility] Start: 06-08-2023 End: 06-08-2023 ambulatory [facility] Work Phone: Start: 06-08-2023 End: 06-08-2023 Patient encounter procedure [facility] Work Phone: Start: 06-08-2023 End: 06-08-2023 ambulatory Glenny Cordoba Facility:[facility] Start: 05-27-2023 End: 05-27-2023 ambulatory [facility] Work Phone: Start: 05-27-2023 End: 05-27-2023 Patient encounter procedure [facility]patient [facility] Work Phone: Start: 05-14-2023 End: 05-14-2023 ambulatory [facility] Work Phone: Start: 05-14-2023 End: 05-14-2023 Patient encounter procedure [facility] Start: 10-18-2022 Non-patient / Non-visit Dr. Caleb Cordoba Work Phone: [facility] Start: 10-18-2022 End: 10-18-[address] Glenny Cordoba Work Phone: [facility] Work Phone: Start: 10-18-2022 End: 10-18-[address] Glenny Cordoba Work Phone: [facility] Work Phone: Start: 10-18-2022 End: 10-18-[address] Glenny Cordoba Work Phone: [facility] Work Phone: Start: 07-31-2022 End: 07-31-[address] Glenny Cordoba Work Phone: [facility] Work Phone: Start: 07-31-2022 End: 07-31-[address] Glenny Cordoba Work Phone: [facility] Start: 07-03-2022 End: 07-03-[address] Glenny Cordoba Work Phone: [facility] Work Phone: Start: 07-03-2022 End: 07-03-[address] Glenny Cordoba Work Phone: [facility] Start: 06-26-2022 End: 06-26-[address] Glenny Cordoba Work Phone: [facility] Start: 04-13-2022 End: 04-13-[address] Glenny Cordoba Work Phone: [facility] Start: 04-07-2022 End: 04-07-[address] Glenny Cordoba Work Phone: [facility] Work Phone: Start: 04-07-2022 End: 04-07-[address] Glenny Cordoba Work Phone: [facility] Start: 03-14-2022 End: 03-14-[address] Glenny Cordoba Work Phone: [facility] Start: 01-09-2022 End: 01-09-2022 ambulatory [facility] Work Phone: Start: 01-09-2022 End: 01-09-2022 [facility] Start: 05-21-2021 End: 05-21-2021 Patient encounter procedure Lito Murphy MD Work Phone: [facility] Comment on above: Cough (Primary Dx) Procedures Date Procedure Procedure Detail Performing Clinician Start: 06-01-2024 Screening mammography Fannie Cordoba MD Work Phone: Start: 05-25-2024 Arthrocentesis aspir&/inj major jt/bursa w/o us Norris Mann MD Work Phone: Start: 06-08-2023 Ultrasound elastogra phy of liver Start: 05-27-2023 Screening mammography Start: 10-18-2022 Radiologic examinati on of knee Dr. Glenny Cordoba Work Phone: Start: 04-07-2022 MRI of joint of lowe r extremity Dr. Glenny Cordoba Work Phone: Start: 03-14-2022 Radiologic examinati on of knee Dr. Glenny Cordoba Work Phone: H/O: surgery Status post bila teral salpingectomy Dr. Glenny Cordoba MD Work Phone: Comment on above: lavhbs no further hy perplasia seen Plan of Treatment Date Care Activity Detail Author Start: 03-28-2027 Urine microalbumin profile DTaP,Tdap,Td Vaccine (2 - Td or Tdap) [facility] Start: 05-22-2026 Screening for malign ant neoplasm of colon [facility] Start: 05-25-2024 End: 05-25-2024 Patient encounter procedure 05/25/2024 4:00 PM EDT Office Visit Orthopaedics [address] [phone] Norris Mann MD [address] [address] zana durolane inj Orthopa[facility]ics Comment on above: zana durolane inj Start: 05-01-2024 End: 05-01-2024 Patient encounter procedure 05/01/2024 1:15 PM EDT Office Visit Orthopa[facility]ics [address] [address] Norris Mann MD [address] [address] left knee replacement consult Orthopaedics Comment on above: left knee replacemen t consult Start: 10-13-2023 Covid-19 Vaccine ( season) Covid-19 Vaccine ( season) [facility] Start: 10-13-2023 Influenza vaccination Influenza Vacc ine (#1) [facility] Start: 10-12-2021 Influenza vaccination INFLUENZ A (Season Ended) [facility] Start: 2020 COLOGUARD (FIT-DNA) COLOGUARD (FIT-D NA) [facility] Start: 2020 Colonoscopy COLONOSCOPY [facility] Start: 2020 COLORECTAL CANCER SCREENING COLORECTAL CANCER SCREENING [facility] Start: [address] COLONOGRAPHY [facility] Start: 2020 [facility] Start: 2020 Diabetes Screening Diabetes Screenin g [facility] Start: 2020 FECAL OCCULT BLOOD FECAL OCCULT BLOO D [facility] Start: 2020 Lipid panel Lipid Screening [facility] Start: 2020 LIPID SCREEN LIPID SCREEN [facility] Start: 2020 Screening for malign ant neoplasm of colon [facility] Start: 2020 SIGMOIDOSCOPY SIGMOIDOSCOPY [facility] Start: 2015 Mammography MAMMOGRAM [facility] Start: 2015 Screening for malign ant neoplasm of breast Mammogram Screening [facility] Start: 06-22-2011 HPV TESTING HPV TESTING [facility] Start: 06-22-2011 PAP TESTING PAP TESTING [facility] Start: 06-22-2011 Screening for malign ant neoplasm of cervix Cervical Cancer Screening [facility] Start: 1994 Hepatitis B Vaccine (1 of 3 - 19+ 3-dose series) Hepatitis B Vaccine (1 of 3 - 19+ 3-dose series) [facility] Start: 1994 Urine microalbumin profile DTAP,TDAP,TD (1 - Tdap) [facility] Start: 1993 Anxiety Screening Anxiety Screening [facility] Start: 1993 Depression Screening Depression Scre ening [facility] Start: 1993 HEPATITIS C SCREENING HEPATITIS C [facility] Start: 1993 Hepatitis C screening Hepatitis C [facility] Start: 1993 HIV SCREENING HIV SCREENING [facility] Start: 1993 HIV screening HIV Screening [facility] Start: 1987 Adult depression screening assessment DEPRESSION SCREENING [facility] Start: 1980 COVID-19 VACCINE (1) COVID-19 VACCIN E (1) [facility] MR Lower Extremity Joint [facility] XR Knee - bilateral 4 Views XR KNEE GENERAL 4V AP BOTH/PA BOTH/LAT/MERC BILATERAL Radiology Routine Pain 02/28/2024 9:49 AM EST [facility] Work Phone: Payers Date Payer Category Payer Self-pay [id number] 2006 [employer] BLUE CARD PPO OOS [id number] 2006 Unknown [employer]M BLUE CARD PPO OOS [id number] 2006-Present [phone] [address] [place] [address] PPO [id number] 2006 Unknown [employer]THEM BLUE CARD PPO OOS [id number] 2006-Present [phone] [address] [place] [address] PPO [id number] 2006 Unknown [id number] Unknown ANTHEM [id number] Unknown [id number]. 2.462 Unknown [id number] [id number]. 2.462 Unknown [id number] [id number]. 2.462 Unknown [id number] [id number]. 2.462 Unknown [id number] [id number]. 2.462 Unknown [id number] [id number]. 2.462 Unknown [id number] [id number]. 2.462 Unknown [id number] [id number]. 2.462 Unknown [id number] 2.16.840.1.441264.3.579. 2.462 Unknown [id number] [id number]. 2.462 Unknown [id number] 2.16.840.1.384285.3.579. 2.462 Unknown [id number] [id number]. 2.462 Unknown [id number] [id number]. 2.462 Unknown [id number] [id number]. 2.462 Unknown [id number] [id number]. 2.462 Unknown [id number] [id number]. 2.462 Unknown [id number]. 2.462 Social History Date Type Detail Facility Start: 10-29-2023 End: 02-28-2024 Tobacco smoking status NHIS Never smoked tobacco [facility] Start: 05-21-2021 End: 05-25-2024 Alcohol intake Current drinker of alcohol (finding) [facility] Start: 1975 Sex Assigned At Not on file [facility] Start: 05-11-2021 End: 05-21-2021 Exposure to SARS-CoV-2 (event) Not sure [facility] Start: 07-13-2020 End: 12-20-2022 Tobacco smoking status NHIS Unknown if ever smoked [facility] Start: 1975 Sex Assigned At Female W [facility] Start: 02-28-2024 Tobacco use and exposure Smokeless tobacco non-user [facility] Start: 02-28-2024 End: 05-25-2024 History of Social function [facility] Start: 02-28-2024 End: 05-25-2024 Tobacco use panel [facility] National Score (1-100), lower number is lower risk 77 [facility] Start: 06-04-2024 Sex Female (finding) [facility] Medical Equipment Procedure Code Equipment Code Equipment Origin al Text Equipment Identifier Dates Laparoscopy with vaginal hysterectomy H[facility]OBLAST [facility] Start: 11-12-2023 Laparoscopy with vaginal hysterectomy SEALANT,FLOSEAL HEMOSTATIC 5ML FDA Start: 11-12-2023 Clinical Notes 05-21-2021 to 05-25-2024 Norris Mann MD - 05/25/2024 3:52 PM EDTTelephone Encounter - [place], Héctor - 05/05/2024 1:13 PM EDTTelephone Encounter - [place], Héctor - 05/05/2024 1:13 PM EDT Note Date & Type Note Facility 05-25-2024 Note HNO ID: [id number] Author: NORRIS MANN MD Service: ? Author Type: Physician Type: Progress Notes Filed: 05/25/2024 17:15 Note Text: SUBJECTIVE: Here for injection of Durolane into bilateral knees. OBJECTIVE: bilateral knee continues to have mild effusion, positive crepitants and decreased ROM. ASSESSMENT: bilateral knees pain secondary to osteoarthritis PLAN: 1. Injection of dose of Durolane through Betadine cleansed inferolateral insertion site. 2. Follow up 1 months' time for repeat evaluation Large Joint Arthro/Inj: bilateral knee joints 05/25/2024 3:52 PM The procedure site was prepped in the usual sterile fashion. Site: bilateral knee joints Medications (Right): 3 mL hyaluronate sodium, stabilized 60 mg/3 mL Medications (Left): 3 mL hyaluronate sodium, stabilized 60 mg/3 mL Outcome: Tolerated well, no immediate complications Post-injection instructions were reviewed with the patient and the patient voiced understanding of these instructions. Informed Consent Consent Obtained: N/A [place] Protocol A moment to CARE was completed. SIGN IN Personnel directly involved with the procedure wore the appropriate PPE. Patient/Surrogate Stated/Verified: Patient name and Relevant allergies TIME OUT Correct side/site marked and visible. SIGN OUT The post-procedure POC has been communicated to the patient or surrogate. [facility] 05-25-2024 History of Present illness Narrative Associated Order(s): Large Joint Arthro/Inj: bilateral knee joints Post-Procedure Diagnose(s): Primary osteoarthritis of both knees SUBJECTIVE: Here for injection of Durolane into bilateral knees. OBJECTIVE: bilateral knee continues to have mild effusion, positive crepitants and decreased ROM. ASSESSMENT: bilateral knees pain secondary to osteoarthritis PLAN: 1. Injection of dose of Durolane through Betadine cleansed inferolateral insertion site. 2. Follow up 1 months' time for repeat evaluation Large Joint Arthro/Inj: bilateral knee joints 05/25/2024 3:52 PM The procedure site was prepped in the usual sterile fashion. Site: bilateral knee joints Medications (Right): 3 mL hyaluronate sodium, stabilized 60 mg/3 mL Medications (Left): 3 mL hyaluronate sodium, stabilized 60 mg/3 mL Outcome: Tolerated well, no immediate complications Post-injection instructions were reviewed with the patient and the patient voiced understanding of these instructions. Informed Consent Consent Obtained: N/A [place] Protocol A moment to CARE was completed. SIGN IN Personnel directly involved with the procedure wore the appropriate PPE. Patient/Surrogate Stated/Verified: Patient name and Relevant allergies TIME OUT Correct side/site marked and visible. SIGN OUT The post-procedure POC has been communicated to the patient or surrogate. documented in this encounter [facility] 05-05-2024 Telephone encounter Note Pt gordo Héctor Ana Lilia [facility] 05-05-2024 Miscellaneous Notes Pt gordo Héctor Ana Lilia Patient's insurance has authorized Durolane gel injections for the patient's bilateral knee. Patient last had an injection of n/a. These injections can be scheduled now These are scheduled 1 a week for 1 week(s) in a row. These can be scheduled with or Mateusz Werner PA-C for a sooner appointment. documented in this encounter [facility] 05-05-2024 Telephone encounter Note Patient's insurance has authorized Durolane gel injections for the patient's bilateral knee. Patient last had an injection of n/a. These injections can be scheduled now These are scheduled 1 a week for 1 week(s) in a row. These can be scheduled with or Mateusz Werner PA-C for a sooner appointment. [facility] 05-01-2024 Note HNO ID: [id number] Author: NORRIS MANN MD Service: ? Author Type: Physician Type: Progress Notes Filed: 05/01/2024 13:57 Note Text: DEPARTMENT OF ORTHOPAEDICS HISTORY OF PRESENT ILLNESS: This is a pleasant 49 year old female, who presents today with a chief complaint of left>right knee pain. She complains of sharp, burning, and aching pain about the anterior and medial aspect of approximately several years duration. This pain is constant. She denies trauma. She complains that the pain is 4/10. She reports nocturnal pain. The pain is exacerbated by walking, managing stairs, and prolonged standing. Previous treatments have included hinged knee brace, prednisone, bkxw-wva-ziyieuz NSAIDs, gel injection right knee which did provide her with relief for approximately a year. She has not had any injections in the left knee. She denies proximal radiation. She denies distal radiation. She denies numbness, tingling, or electric shocks. She reports clicking, grinding, and giving way. She reports swelling and/or warmth. PAIN EVALUATION 05/01/2024 1311 Pain Level: 4 Pain Location: Knee-Left Description: Sore;Aching;Throbbing Duration Amount of Time: 2 Duration Units: Years Frequency: Continuous Intervention/Comfort measure: -- brace, PAST MEDICAL HISTORY Diagnosis Date Dysmenorrhea Excessive or frequent menstruation Heavy periods Migraine headache Prediabetes Unspecified essential hypertension 02/11/2010 Essential hypertension PAST SURGICAL HISTORY Procedure Laterality Date LAPAROSCOPY SURG CHOLECYSTECTOMY 2002 Cholecystectomy, lap/tubal ligation also LIG/TRNSXJ FLP TUBE ABDL/VAG APPR UNI/BI Tubal ligation TONSILLECTOMY PRIMARY/SECONDARY Tonsillectomy as an adult Current Outpatient Medications Medication Sig Dispense Refill ramipril (ALTACE) 2.5 mg capsule Take 1 capsule by mouth every afternoon. hydrOXYzine HCl (ATARAX) 25 mg tablet 1 TABLET AT BEDTIME FOR SLEEP, ALLERGIES, AND ANXIETY pioglitazone (ACTOS) 30 mg tablet Take 1 tablet by mouth every afternoon. vitamin D3-vitamin K2 1,250-200 mcg cap Take by mouth. metFORMIN ER (GLUCOPHAGE XR) 500 mg 24 hr tablet Take 500 mg by mouth once daily. SPIRONOLACTONE ORAL Take by mouth. metoprolol succinate XL, long acting, 50 mg 24 hr tablet Take 50 mg by mouth once daily. No current facility-administered medications for this visit. 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 MUSCULOSKELETAL: See HPI. PSYCH: Negative for sleep disturbance, mood disorder and recent psychosocial stressors. HEMATOLOGY Negative for prolonged bleeding, bruising easily, and swollen nodes. ENDOCRINE: Negative for cold or heat intolerance, polyuria, polydipsia and goiter. NEURO: negative for lightheadedness, dizziness, tremor, gait imbalance, syncope and seizures. RADIOGRAPHS: Last XR Knee - Impression Only XR KNEE GENERAL 4V AP BOTH/PA BOTH/LAT/MERC BILATERAL Exam End: 02/28/2024 9:49 AM (Final result) Impression: IMPRESSION: Bilateral osteoarthrosis Lathing Supervisor: NADER Transcribe Date/Time: Mar 02 2024 9:25A Dictated by : MIKE BARRAGAN MD ... OTHER STUDIES: Last MRI Knee - Impression Only No resulted procedures found. PHYSICAL EXAM: Ht 5' 6" (1.68m) Wt 246 lb 14.6 oz (112.0kg) LMP 11/16/2011 BMI 39.87 kg/(m2). General: Appears stated age, well built, in no apparent distress. Psychiatric: Mood and affect appropriate. Alert and oriented x3. Musculoskeletal Exam: Gait and Station antalgic: left. BILATERAL KNEE EXAM: Inspection Skin No evidence of eythema, warmth, bruising, abrasions, scars, swelling, atrophy or deformity about bilateral lower extremities. Incision No evidence of surgical incisions. Atrophy No evidence of muscular atrophy. Range of Motion Knee 5-110 degrees Patella Decreased patellar mobility Palpation Effusion 1+ effusion Tenderness medial joint line, medial patellar facet, and lateral patellar facet Crepitance Positive palpable patellofemoral crepitance Meniscus Negative medial and lateral (more content not included)... [facility] 05-01-2024 History of Present illness Narrative Images from the original note were not included. DEPARTMENT OF ORTHOPAEDICS HISTORY OF PRESENT ILLNESS: This is a pleasant 49 year old female, who presents today with a chief complaint of left>right knee pain. She complains of sharp, burning, and aching pain about the anterior and medial aspect of approximately several years duration. This pain is constant. She denies trauma. She complains that the pain is 4/10. She reports nocturnal pain. The pain is exacerbated by walking, managing stairs, and prolonged standing. Previous treatments have included hinged knee brace, prednisone, howu-ymm-iwrczct NSAIDs, gel injection right knee which did provide her with relief for approximately a year. She has not had any injections in the left knee. She denies proximal radiation. She denies distal radiation. She denies numbness, tingling, or electric shocks. She reports clicking, grinding, and giving way. She reports swelling and/or warmth. PAIN EVALUATION 05/01/2024 1311 Pain Level: 4 Pain Location: Knee-Left Description: Sore;Aching;Throbbing Duration Amount of Time: 2 Duration Units: Years Frequency: Continuous Intervention/Comfort measure: -- brace, PAST MEDICAL HISTORY Diagnosis Date Dysmenorrhea Excessive or frequent menstruation Heavy periods Migraine headache Prediabetes Unspecified essential hypertension 02/11/2010 Essential hypertension PAST SURGICAL HISTORY Procedure Laterality Date LAPAROSCOPY SURG CHOLECYSTECTOMY 2002 Cholecystectomy, lap/tubal ligation also LIG/TRNSXJ FLP TUBE ABDL/VAG APPR UNI/BI Tubal ligation TONSILLECTOMY PRIMARY/SECONDARY <AGE 12 2006 Tonsillectomy as an adult Current Outpatient Medications Medication Sig Dispense Refill ramipril (ALTACE) 2.5 mg capsule Take 1 capsule by mouth every afternoon. hydrOXYzine HCl (ATARAX) 25 mg tablet 1 TABLET AT BEDTIME FOR SLEEP, ALLERGIES, AND ANXIETY pioglitazone (ACTOS) 30 mg tablet Take 1 tablet by mouth every afternoon. vitamin D3-vitamin K2 1,250-200 mcg cap Take by mouth. metFORMIN ER (GLUCOPHAGE XR) 500 mg 24 hr tablet Take 500 mg by mouth once daily. SPIRONOLACTONE ORAL Take by mouth. metoprolol succinate XL, long acting, 50 mg 24 hr tablet Take 50 mg by mouth once daily. No current facility-administered medications for this visit. 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 MUSCULOSKELETAL: See HPI. PSYCH: Negative for sleep disturbance, mood disorder and recent psychosocial stressors. HEMATOLOGY Negative for prolonged bleeding, bruising easily, and swollen nodes. ENDOCRINE: Negative for cold or heat intolerance, polyuria, polydipsia and goiter. NEURO: negative for lightheadedness, dizziness, tremor, gait imbalance, syncope and seizures. RADIOGRAPHS: Last XR Knee - Impression Only XR KNEE GENERAL 4V AP BOTH/PA BOTH/LAT/MERC BILATERAL Exam End: 02/28/2024 9:49 AM (Final result) Impression: IMPRESSION: Bilateral osteoarthrosis Lathing Supervisor: NADER Transcribe Date/Time: Mar 02 2024 9:25A Dictated by : MIKE BARRAGAN MD ... OTHER STUDIES: Last MRI Knee - Impression Only No resulted procedures found. PHYSICAL EXAM: Ht 5' 6" (1.68m) Wt 246 lb 14.6 oz (112.0kg) LMP 11/16/2011 BMI 39.87 kg/(m^2). General: Appears stated age, well built, in no apparent distress. Psychiatric: Mood and affect appropriate. Alert and oriented x3. Musculoskeletal Exam: Gait and Station antalgic: left. BILATERAL KNEE EXAM: Inspection Skin No evidence of eythema, warmth, bruising, abrasions, scars, swelling, atrophy or deformity about bilateral lower extremities. Incision No evidence of surgical incisions. Atrophy No evidence of muscular atrophy. Range of Motion Knee 5-110 degrees Patella Decreased patellar mobility Palpation Effusion 1+ effusion Tenderness medial joint line, medial patellar facet, and lateral patellar facet Crepitance Positive palpable patellofemoral crepitance Meniscus Negative medial and lateral Jaspal's test Stability Positive valgus instability, remainder of stability exam is normal Lumbar Spine: Lumbar spine normal to inspection, palpation and motion. Negative straight leg raise and nerve root tension signs. Negative Melissa's, calf tenderness or palpable cords. Bilateral lower extremities show equal motion of the hips and ankles. Normal strength, tone, and stability of both lower extremities distally. Neurologic Exam: Intact medial leg and foot(L4), lateral leg and 1st web space(L5), lateral foot(S1) sensation in both lower extremities. Intact patellar tendon(L4), and Achilles(S1) reflexes in both lower extremities. Vascular: 2+ pedal pulses of both lower extremities. PROCEDURE: Not applicable Rationale for Viscosupplementation: Renewal Request As a part of a multimodal treatment plan, we are requesting authorization of hyaluronic acid viscosupplementation injections for the improvement of symptoms related to osteoarthritis. Authorization is being requested for treatment of Bilateral knees. Rationale for authorization of these injections is based on the following elements: Signs and Symptoms Length of symptoms > 3 months Pain interferes with ADLs? Yes Radiographic evidence of OA? Yes Previous Treatments Bracing attempted? Yes Formal Physical Therapy (PT)/ Home Exercise Program (HEP) attempted? Patient completed an outlined HEP NSAID medication attempted? Yes Corticosteroid injection attempted? CSI is contraindicated for this patient Weight management attempted? Yes Prior Viscosupplementation Prior viscosupplementation? Yes Prior viscosupplementation improved symptoms? Yes Prior viscosupplementation improved symptoms at least 6 months? Yes Patient continues to be symptomatic despite above treatment attempts. Requested Viscosupplementation Preferred product: Durolane Alternative product: Euflexxa or payor preferred IMPRESSION: 1. bilateral knee severe degenerative joint disease. We have discussed the various treatment options available including viscosupplementation, continuing bracing and NSAIDs and ultimately if all conservative measures fail, consideration for arthroplasty can be given. As the patient has gained good relief in the right knee from Visco supplements I feel it is reasonable to attempt this on the left. She is not a candidate for corticosteroid injection if she has been diagnosed as a prediabetic and currently on metformin. We discussed arthroplasty briefly and outlined the risk goals complications. Given her young age of 49 I feel it is best to try nonoperative measures first. If these are not successful then we can proceed with surgical intervention. Patient understands and agrees with the plan PLAN: 1. Medication: Continue current medications. We reviewed appropriate dosing for [id number]-[id number] NSAIDs 2. Test(s)/Imaging/Referral(s): None. 3. Intervention: Continue conservative treatment and WBAT. 4. Follow-up: For injections when approval has been obtained.. Norris Mann MD I would like to thank you for the kind referral of . I appreciate the opportunity to be involved in her care. Please do not hesitate to call upon me if I may be of further assistance. documented in this encounter [facility] 02-28-2024 Note HNO ID: [id number] Author: AYDEE BEAVERS, DO Service: ? Author Type: Physician Type: Progress Notes Filed: 02/28/2024 10:51 Note Text: Reason for Visit/Chief Complaint Brittany Triana is a 48 year old female who presents today for a new evaluation of following complaint: Patient presents with: Right Knee - New, Knee Pain Left Knee - New, Knee Pain History of Present Illness: PAIN EVALUATION 02/28/2024 1015 Pain Level: 8 Pain Location: -- bilateral knee Description: Sore;Aching;Throbbing Duration Units: Years Frequency: Intermittent Intervention/Comfort measure: -- gel injections, brace, HPI: Brittany Triana is a 48 year old female presenting today with bilateral knee pain. Patient has been experiencing knee pain for years now. She was see outside of [facility] where she received treatment. She is here to discuss options as that provider left. Pain history is noted as above. Denies calf pain, numbness, tingling, fever, chills or other constitutional symptoms. Patient states left knee is worse Previous Treatments: Ice: Yes Heat: No Brace: Yes, left knee NSAIDs: Yes, advil Injections: Yes, recent gel injection - euflexxa - lasted 1 year Surgeries: No Physical Therapy: No Review of Systems: Patient did not have, and does not currently have, any weight loss, malaise, fever, chills, headache, chest pain, chest pressure, palpitations, cough, shortness of breath, orthopnea, paroxsymal nocturnal dyspnea, nausea, vomiting, diarrhea, constipation, melena, hematochezia, urinary difficulties, prolonged bleeding, easily bruising, heat or cold intolerance, new onset joint pain or swelling, new onset extremity weakness or numbness, new onset auditory or visual disturbances, lightheadedness, dizziness, partial loss of consciousness or full loss of consciousness. Current Outpatient Medications on File Prior to Visit Medication Sig ramipril (ALTACE) 2.5 mg capsule Take 1 capsule by mouth every afternoon. hydrOXYzine HCl (ATARAX) 25 mg tablet 1 TABLET AT BEDTIME FOR SLEEP, ALLERGIES, AND ANXIETY pioglitazone (ACTOS) 30 mg tablet Take 1 tablet by mouth every afternoon. vitamin D3-vitamin K2 1,250-200 mcg cap Take by mouth. metFORMIN ER (GLUCOPHAGE XR) 500 mg 24 hr tablet Take 500 mg by mouth once daily. SPIRONOLACTONE ORAL Take by mouth. metoprolol succinate XL, long acting, 50 mg 24 hr tablet Take 50 mg by mouth once daily. No current facility-administered medications on file prior to visit. ALLERGIES No Known Allergies Physical Exam: Vitals: LMP 11/16/2011 Psych: Pleasant, good affect and mood General Appearance: Well appearing, alert, in no acute distress, well-hydrated, well nourished.. Skin: Skin color, texture, turgor normal, no suspicious rashes or lesions. Peripheral Pulses: Normal. Neurologic: Gait normal. Reflexes normal and symmetric. Sensation grossly intact.. Lymph Nodes: No cervical lymphadenopathy, No supraclavicular lymphadenopathy, No axillary lymphadenopathy., and No inguinal lymphadenopathy.. Respiratory: No recent pulmonary infection, hemoptysis, chronic cough, or shortness of breath at rest Rheumatologic: Joint deformities: bilateral knee pain Right Knee Exam Tenderness The patient is experiencing tenderness in the medial joint line and patella. Range of Motion Extension: normal Flexion: normal Tests Mary: Anterior - negative Posterior - negative Drawer: Anterior - negative Posterior - negative Other Erythema: absent Sensation: normal Pulse: present Swelling: mild Comments: Pat crepitus Left Knee Exam Tenderness The patient is experiencing tenderness in the medial joint line and patella. Range of Motion Extension: normal Flexion: normal Tests Mary: Anterior - negative Posterior - negative Drawer: Anterior - negative Posterior - negative Other Erythema: absent Sensation: normal Pulse: present Swelling: mild Comments: Neg homans bilaterally Imaging: Last XR Knee - Impression Only XR KNEE GENERAL 4V AP BOTH/PA BOTH/LAT/MERC BILATERAL Exam End: 02/28/2024 9:49 AM (In process) Assessment and Plan: Impression: Encounter Diagnosis ICD-10-CM 1. Primary osteoarthritis of both knees M17.0 traMADol (ULTRAM) 50 mg tablet Plan: Options for treatment are: Do nothing Nsaids- rx or otc Topical pain meds- voltaren or lidocaine Injections- PRP, Steroid, or Gel: risks and benefits given for each MRI if limited oa and meniscus tear suspected Physical Therapy Bracing Arthroscopy Mediterranean Diet/ turmeric/ low carb Weight loss if necessary Discussed options for treatment for OA Decreased weight, increased strength, core strengthening, hamstring strengthening Antiinflammatory diet Glucosamine meds indications and length of time discussed Patient aware and in agreement of plan. All questions answered. Total joint replacement if pain and/or arthritis worsens and (more content not included)... [facility] 02-28-2024 History of Present illness Narrative Images from the original note were not included. Reason for Visit/Chief Complaint Brittany Triana is a 48 year old female who presents today for a new evaluation of following complaint: Patient presents with: Right Knee - New, Knee Pain Left Knee - New, Knee Pain History of Present Illness: PAIN EVALUATION 02/28/2024 1015 Pain Level: 8 Pain Location: -- bilateral knee Description: Sore;Aching;Throbbing Duration Units: Years Frequency: Intermittent Intervention/Comfort measure: -- gel injections, brace, HPI: Brittany Triana is a 48 year old female presenting today with bilateral knee pain. Patient has been experiencing knee pain for years now. She was see outside of [facility] where she received treatment. She is here to discuss options as that provider left. Pain history is noted as above. Denies calf pain, numbness, tingling, fever, chills or other constitutional symptoms. Patient states left knee is worse Previous Treatments: Ice: Yes Heat: No Brace: Yes, left knee NSAIDs: Yes, advil Injections: Yes, recent gel injection - euflexxa - lasted 1 year Surgeries: No Physical Therapy: No Review of Systems: Patient did not have, and does not currently have, any weight loss, malaise, fever, chills, headache, chest pain, chest pressure, palpitations, cough, shortness of breath, orthopnea, paroxsymal nocturnal dyspnea, nausea, vomiting, diarrhea, constipation, melena, hematochezia, urinary difficulties, prolonged bleeding, easily bruising, heat or cold intolerance, new onset joint pain or swelling, new onset extremity weakness or numbness, new onset auditory or visual disturbances, lightheadedness, dizziness, partial loss of consciousness or full loss of consciousness. Current Outpatient Medications on File Prior to Visit Medication Sig ramipril (ALTACE) 2.5 mg capsule Take 1 capsule by mouth every afternoon. hydrOXYzine HCl (ATARAX) 25 mg tablet 1 TABLET AT BEDTIME FOR SLEEP, ALLERGIES, AND ANXIETY pioglitazone (ACTOS) 30 mg tablet Take 1 tablet by mouth every afternoon. vitamin D3-vitamin K2 1,250-200 mcg cap Take by mouth. metFORMIN ER (GLUCOPHAGE XR) 500 mg 24 hr tablet Take 500 mg by mouth once daily. SPIRONOLACTONE ORAL Take by mouth. metoprolol succinate XL, long acting, 50 mg 24 hr tablet Take 50 mg by mouth once daily. No current facility-administered medications on file prior to visit. ALLERGIES No Known Allergies Physical Exam: Vitals: [facility] 11/16/2011 Psych: Pleasant, good affect and mood General Appearance: Well appearing, alert, in no acute distress, well-hydrated, well nourished.. Skin: Skin color, texture, turgor normal, no suspicious rashes or lesions. Peripheral Pulses: Normal. Neurologic: Gait normal. Reflexes normal and symmetric. Sensation grossly intact.. Lymph Nodes: No cervical lymphadenopathy, No supraclavicular lymphadenopathy, No axillary lymphadenopathy., and No inguinal lymphadenopathy.. Respiratory: No recent pulmonary infection, hemoptysis, chronic cough, or shortness of breath at rest Rheumatologic: Joint deformities: bilateral knee pain Right Knee Exam Tenderness The patient is experiencing tenderness in the medial joint line and patella. Range of Motion Extension: normal Flexion: normal Tests Mary: Anterior - negative Posterior - negative Drawer: Anterior - negative Posterior - negative Other Erythema: absent Sensation: normal Pulse: present Swelling: mild Comments: Pat crepitus Left Knee Exam Tenderness The patient is experiencing tenderness in the medial joint line and patella. Range of Motion Extension: normal Flexion: normal Tests Mary: Anterior - negative Posterior - negative Drawer: Anterior - negative Posterior - negative Other Erythema: absent Sensation: normal Pulse: present Swelling: mild Comments: Neg homans bilaterally Imaging: Last XR Knee - Impression Only XR KNEE GENERAL 4V AP BOTH/PA BOTH/LAT/MERC BILATERAL Exam End: 02/28/2024 9:49 AM (In process) Assessment and Plan: Impression: Encounter Diagnosis ICD-10-CM 1. Primary osteoarthritis of both knees M17.0 traMADol (ULTRAM) 50 mg tablet Plan: Options for treatment are: Do nothing Nsaids- rx or otc Topical pain meds- voltaren or lidocaine Injections- PRP, Steroid, or Gel: risks and benefits given for each MRI if limited oa and meniscus tear suspected Physical Therapy Bracing Arthroscopy Mediterranean Diet/ turmeric/ low carb Weight loss if necessary Discussed options for treatment for OA Decreased weight, increased strength, core strengthening, hamstring strengthening Antiinflammatory diet Glucosamine meds indications and length of time discussed Patient aware and in agreement of plan. All questions answered. Total joint replacement if pain and/or arthritis worsens and not relieved with above measures Today, in detail, through a thorough evaluation, we discussed possible etiologies of pain and our plans for further diagnostic and therapeutic interventions. We discussed strategies for decreasing pain and improving strength, stability and motion. Patient's questions were answered in detailed. Patient verbalizes understanding and agrees with the treatment plan as discussed. Gave names of partners that do tkas, will sched on way out for eval Patient aware and in agreement of plan. All questions answered. Aydee Beavers D.O. M.P.H. documented in this encounter [facility] 02-28-2024 History of Present illness Narrative Radiology Service Progress Note PATIENT NAME: Brittany Triana DATE OF SERVICE: February 28, 2024 TIME: 9:49 AM PATIENT IDENTITY VERIFICATION COMPLETED USING TWO (2) IDENTIFIERS: Name and Date of confirmed by patient verbally. FALL SCREENING: Has the patient had 2 falls in the last year or 1 fall with injury or currently using an Ambulatory Assistive Device (Walker, Cane, Wheelchair, Crutches, etc.)? No PATIENT GENDER DATA: Assigned female at . status: : No status: NO. PATIENT RELEVANT IMPLANT DATA REVIEWED: Not Applicable PATIENT PRESENTS WITH AN IMPLANTABLE OR ATTACHED RN CONCURRENT REVIEW: No RADIOLOGY DEPARTMENT: General X-ray: Exam(s) Completed: Lower Extremity X-Ray(s): Knee, AP / Lat / Tunne / Merchant Bilateral and Wt. Bearing PERIPHERAL IV DATA: Not applicable SIGNED BY: Alix Lott February 28, 2024 9:49 AM documented in this encounter [facility] 02-28-2024 Note HNO ID: [id number] Author: CÉSAR CHAUHAN Tech Service: ? Author Type: Director Business Development Type: Progress Notes Filed: 02/28/2024 09:50 Note Text: Radiology Service Progress Note PATIENT NAME: Brittany Triana DATE OF SERVICE: February 28, 2024 TIME: 9:49 AM PATIENT IDENTITY VERIFICATION COMPLETED USING TWO (2) IDENTIFIERS: Name and Date of confirmed by patient verbally. FALL SCREENING: Has the patient had 2 falls in the last year or 1 fall with injury or currently using an Ambulatory Assistive Device (Walker, Cane, Wheelchair, Crutches, etc.)? No PATIENT GENDER DATA: Assigned female at . status: : No status: NO. PATIENT RELEVANT IMPLANT DATA REVIEWED: Not Applicable PATIENT PRESENTS WITH AN IMPLANTABLE OR ATTACHED RN CONCURRENT REVIEW: No RADIOLOGY DEPARTMENT: General X-ray: Exam(s) Completed: Lower Extremity X-Ray(s): Knee, AP / Lat / Tunne / Merchant Bilateral and Wt. Bearing PERIPHERAL IV DATA: Not applicable SIGNED BY: Alix Lott February 28, 2024 9:[address] [facility] 11-11-2023 Note [facility] Medical Records Department [address] [place] [address] History Physical Exam 11/11/23 1738 MR#: [id number] Acct: [id number] Name: SANTINO TRIANACristin Coronado Rep #: [id number] : 1975 48 From: Janae Roper MD PCP: Dr. Glenny Cordoba MD Status:[facility] [place] Location: [place] [address] History and Physical Date of Admission: 11/11/23 [facility] [address], [address] [place] [address] OFFICE VISIT Date of Service: 10/21/23 MR#: [id number] Acct: [id number] Name: BRITTANY TRIANA Rep #: [id number] : 1975 Provider: Dr. 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 Required: No Allergies No Known Allergies Allergy (Verified 10/21/23 08:04) Medications ???Medication ???Instructions ???Recorded ???Confirmed ???Type metformin 500 mg tablet 500 mg PO BID dm 10/27/14 10/21/23 History spironolactone 50 mg tablet 50 mg PO DAILY bp 10/27/14 10/21/23 History acetaminophen 500 mg tablet 500 mg PO Q6H PRN pain 03/14/22 10/21/23 History (Tylenol Extra Strength) amlodipine 10 mg tablet 10 mg PO DAILY 10/18/22 10/21/23 History hydroxyzine HCl 25 mg tablet 25 mg PO .PRN PRN anxiety 10/18/22 10/21/23 History ramipril 1.25 mg capsule 1.25 mg PO DAILY 10/18/22 10/21/23 History PFSH Medical History Wears glasses Fatty liver Migraine headache Dietary restriction Non-smoker History of pain when walking History of echocardiogram History of stress test NAFLD (nonalcoholic fatty liver disease) Prediabetes RLQ discomfort Diabetes HTN (hypertension) Surgical History H/O dilation and curettage S/P right rotator cuff repair S/P tubal ligation S/P tonsillectomy S/P laparoscopic cholecystectomy Family History Grandmother Cancer cervicalFather Rheumatic fever with heart involvement Social History adopted: No household members: spouse, children and other details: mom number of children: 2 current occupational status: employed 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 I discussed with her the risk of delayed diagnosis of cancer, recommended progesterone treatment or hysterectomy for definitive treatment. patient requesting hysterectomy. she denies any pelvic pain, fever, co some brown discharge since ablation. History 2 Elective abortions Hx Para 2 Spontaneous abortions Hx # Term Pregnancies Ectopic pregnancies Hx # Pregnancies Multiple births # of living children 2 Past Pregnancies Del. Date Name GA/Weeks Outcome Route Bth Weight Infant Gen Labor Lgth Anesthesia Del [facility] Provider FOB 01/30/98 Luis Daniel 08/04/01 Shirin ROS Const Constitutional: Denies fatigue, fever(s), headache(s), increased appetite, poor appetite, weight gain or weight loss Cardio Card: Denies chest pain Resp Resp: Denies cough or dyspnea GI GI: Reports as per HPI; Denies abdominal pain, constipation, nausea or vomiting : Reports as per HPI; Denies difficulty voiding, dysuria, nipple discharge, urinary frequency, urinary incontinence, urinary hesitancy, urinary urgency, vaginal discharge, vaginal dryness, vaginal odor or vaginal pruritus Skin Skin/Breast: Denies change in hair, breast mass, breast pain, breast skin changes or nipple discharge Exam Const General: cooperative, healthy appearing, comfortable, no acute distress and well developed Nutritional Appearance: average body habitus Orientation: alert HENMT Head: normal to inspection and normocephalic Neck Neck: normal visual inspection and trachea midline Thyroid: thyroid normal Resp Effort Ins (more content not included)... [facility] 10-01-2023 Note [facility] Medical Records Department [address] [place] [address] History Physical Exam 10/01/23 1121 MR#: [id number] Acct: [id number] Name: BRITTANY TRIANA Rep #: [id number] : 1975 48 From: Janae Roper MD PCP: Dr. 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 Relationship Manager Required: No Is patient in pain?: No Allergies No Known Allergies Allergy (Verified 09/06/23 15:18) Medications ???Medication ???Instructions ???Recorded ???Confirmed ???Type metformin 500 mg tablet 500 mg PO DAILY dm 10/27/14 09/06/23 History spironolactone 50 mg tablet 50 mg PO DAILY bp 10/27/14 09/06/23 History acetaminophen 500 mg tablet 500 mg PO Q6H PRN 03/14/22 09/06/23 History (Tylenol Extra Strength) ibuprofen 200 mg tablet 220 mg PO Q6H PRN 03/14/22 09/06/23 History amlodipine 10 mg tablet mg PO 10/18/22 09/06/23 History cholecalciferol (vitamin D3) 50 PO 10/18/22 09/06/23 History mcg (2,000 unit) capsule hydroxyzine HCl 25 mg tablet mg PO 10/18/22 09/06/23 History ramipril 1.25 mg capsule mg PO 10/18/22 09/06/23 History Is last menstrual period known: Yes Last Menstrual Period: 07/13/23 Post menopausal: No Patient : No : No [facility] History (Updated 09/06/23 @ 16:[address] 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 she will bleed through proteciton in an hour. she has some hot flashes. she doesn't sleep very well. Female Reproductive History Last Menstrual Period: 07/13/23 Cycle Length: 21-35 Bleeding Duration: 6 Frequency of changing protection: 1 hr Questions: metorrhagia: No, sexually active: Yes, dyspareunia: No and PCB: No Menopausal Symptoms: No hot flashes, No night sweats, No weight change, No mood changes, No difficulty concentrating, No sleep problems and No change in libido History 2 Elective abortions Hx Para 2 Spontaneous abortions Hx # Term Pregnancies Ectopic pregnancies Hx # Pregnancies Multiple births # of living children 2 Past Pregnancies Del. Date Name GA/Weeks Outcome Route Bth Weight Infant Gen Labor Lgth Anesthesia Del Locatn Provider FOB 01/30/98 Luis Daniel 08/04/01 Shirin Carl Constitutional: Reports as per HPI; Denies fatigue, increased appetite, poor appetite, night sweats, weight gain or weight loss ENT ENT: Reports system reviewed and no additional complaints, except as documented Cardio Card: Denies chest pain Resp Resp: Denies cough or dyspnea GI GI: Reports as per HPI; Denies abdominal pain, bloating, constipation, nausea or vomiting : Reports as per HPI and other; Denies difficulty voiding, dysuria, hematuria, hot flashes, nipple discharge, pelvic pain, prolapse symptoms, urinary frequency, urinary incontinence, urinary urgency, vaginal discharge, vaginal dryness, vaginal odor or vaginal pruritus Musc Musc: Denies arthralgias, back pain or muscle weakness Skin Skin/Breast: Denies changing lesions, breast mass, breast pain, breast skin changes or nipple discharge Neuro Neuro: Reports system reviewed and no additional complaints, except as documented Psych Psych: Denies anxiety, change in libido, depression or difficulty concentrating Endo Endo: Denies cold intolerance, excessive sweating, heat intolerance or polydipsia Jonny/Lymph Hematologic/Lymphatic: Denie (more content not included)... [facility] 05-21-2021 History of Present illness Narrative Patient presents with: Sore Throat: x 3days Nasal Congestion: 1 day HPI: Feeling sick for 6 days Positive symptoms: sore throat, nasal congestion, Shortness of breath, Sinus pressure, Post nasal drainage, Negative symptoms: Fever, Nausea, Vomiting, Diarrhea, OTC: Sudafed Cold Medicine PAST MEDICAL HISTORY Diagnosis Date Dysmenorrhea Excessive or frequent menstruation Heavy periods Migraine headache Prediabetes Unspecified essential hypertension 02/11/2010 Essential hypertension MEDICATIONS: Current Outpatient Medications Medication Sig metFORMIN ER (GLUCOPHAGE XR) 500 mg 24 hr tablet Take 500 mg by mouth once daily. SPIRONOLACTONE ORAL Take by mouth. metoprolol succinate XL, long acting, 50 mg 24 hr tablet Take 50 mg by mouth once daily. No current facility-administered medications for this visit. ALLERGIES: ALLERGIES No Known Allergies VITALS: BP 130/90 Pulse 72 Temp 37 C (98.6 F) Resp 16 Wt 110.6 kg (243 lb 12.8 oz) LMP 11/16/2011 SpO2 96% PHYSICAL EXAM: GEN: mildly ill appearing HEENT: PERRL, EOMI, conjunctiva clear Ears: small cerumen. TMs without erythema, bulge, or effusion Sinuses: non-tender frontal sinus, non-tender maxillary sinuses Throat: moist mucous membranes, mild erythema, no exudate Neck: supple, no thyromegaly, no lymphadenopathy HEART: regular rate and rhythm, no murmurs LUNGS: clear to auscultation, no wheezes or crackles, no increased WOB ASSESSMENT/PLAN: 1. Cough - ICD9: 786.2, ICD10: R05.9 - suspect viral URI with bronchitis, differential includes COVID-19 though current prevalence is low. - Discussed supportive care treatment with rest, cough medicine, and analgesia. - Red flags to seek further treatment include chest pain, worsening shortness of breath, and late onset fever. Declines COVID test. - BENZONATATE 100 MG CAPSULE Lito Murphy MD documented in this encounter [facility] Evaluation note Diagnosis Cough- Primary [facility] noteNo assessment information availableWMercy [facility] Work Phone: Evaluation note* Diagnosis Onset Date Resolution Status Internal derangement of right knee noneactive [facility] Work Phone: Evaluation note* Diagnosis Onset Date Resolution Status Internal derangement of right knee noneactive Chondral defect of femoral condyle noneactive Osteoarthritis of right knee noneactive [facility] Work Phone: Evaluation note* Diagnosis Onset Date Resolution Status Chondral defect of femoral condyle noneactive Osteoarthritis of right knee noneactive [facility] Work Phone: Evaluation note* Diagnosis Onset Date Resolution Status Left leg swelling acute Left knee pain noneactive [facility] Work Phone: Evaluation note* Diagnosis Primary osteoarthritis of both knees- Primary Primary localized osteoarthrosis, lower leg [facility]* Diagnosis Pain Generalized pain documented [facility]* Diagnosis Primary osteoarthritis of both knees- Primary Primary localized osteoarthrosis, lower leg [facility]* Diagnosis Primary osteoarthritis of both knees- Primary Primary localized osteoarthrosis, lower leg documented in this encounter [facility] for referral (narrative)No reason for referral information availableWMercy Health St[facility] Work Phone: Reason for visit Narrative* Diagnostic Procedure Only (Routine) - Closed Specialty Diagnoses / Procedures Referred By Contac t Referred To Contact XR IMAGING Diagnoses Pain Procedures XR KNEE GENERAL 4V AP BOTH/PA BOTH/LAT/MERC BILATERAL RADIOLOGIC EXAM KNEE COMPLETE 4/MORE VIEWS Aydee Beavers, DO [address] [place] [address] [place] [address] Referral ID Status Reason Start Date Expiration Date V isits Requested Visits Authorized [id number] Closed Auto-Generate d Referral 01/06/2024 02/04/2025 1 1 [facility] Advance Directives No Advanced Directives Records Found Advance Directive Response Recorded Date/ Time Advance Directives Yes October 8:19am Living Will Yes October 31, 2018 12:08pm Power of Molecular Biology Professor No October 12:08pm Advance Directive Response Recorded Date/ Time Advance Directives Yes October 9:19am Living Will Yes October 31, 2018 1:08pm Power of Molecular Biology Professor No October 1:08pm Advance Directive Response Recorded Date/ Time Advance Directives Yes October 9:19am Chief Complaint and Reason for Visit Chief Complaint RIGHT KNEE Rm 3 xray RIGHT KNEE PAIN RIGHT KNEE Reason for Visit Internal derangement of right knee Chief Complaint RIGHT KNEE Rm 3 xray RIGHT KNEE PAIN RIGHT KNEE Reason for Visit Internal derangement of right knee Chondral defect of femoral condyle Osteoarthritis of right knee Chief Complaint RIGHT KNEE PAIN RIGHT KNEE Reason for Visit Chondral defect of f emoral condyle Osteoarthritis of right knee Chief Complaint LEFT KNEE Room 3 LLE PAIN & SWELLING Reason for Visit Left leg swelling Left knee pain Chief Complaint SCREENING Chief Complaint SCREENING FATTY LIVER Chief Complaint Admit Date SCREENING June 01, 2024 9:4 2am Summary Purpose Family History No Family History Records Found Relationship Condition Age at Onset Recorded Date/T merline grandmother Malignant neoplasm Unknown father Rheumatic fever with cardiac involvement Unknown Additional Source Comments Source Comments (unrecognize d section and content) In the event this informatio n is protected by the Federal Confidentiality of Alcohol and Drug Abuse Patient Records regulations: The Federal rules restrict any use of the information to criminally investigate or prosecute any alcohol or drug abuse patient.[facility] the event this information is protected by the Federal Confidentiality of Alcohol and Drug Abuse Patient Records regulations: The Federal rules restrict any use of the information to criminally investigate or prosecute any alcohol or drug abuse patient.[facility] the event this information is protected by the Federal Confidentiality of Alcohol and Drug Abuse Patient Records regulations: The Federal rules restrict any use of the information to criminally investigate or prosecute any alcohol or drug abuse patient.[facility] the event this information is protected by the Federal Confidentiality of Alcohol and Drug Abuse Patient Records regulations: The Federal rules restrict any use of the information to criminally investigate or prosecute any alcohol or drug abuse patient.[facility] the event this information is protected by the Federal Confidentiality of Alcohol and Drug Abuse Patient Records regulations: The Federal rules restrict any use of the information to criminally investigate or prosecute any alcohol or drug abuse patient.[facility] Hospital[facility] the event this information is protected by the Federal Confidentiality of Alcohol and Drug Abuse Patient Records regulations: The Federal rules restrict any use of the information to criminally investigate or prosecute any alcohol or drug abuse patient.[facility] Reason for Visit (unrecogniz ed section and content) Reason Comments Sore Throat x 3days Nasal Congestion 1 day Reason Comments New Knee Pain Reason Comments gel knee injections Reason Comments Follow Up Injections Knee Pain Specialty Diagnoses / Procedures Referred By Contac t Referred To Contact ORTHOPAEDIC SURGERY Diagnoses Bilateral primary osteoarthritis of knee Procedures DUROLANE PER 1MG DUROLANE OR PAYOR PREFERRED Norris Mann MD 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 Glenny Cordoba MD Family Provider Active Dr. Glenny Cordoba MD Primary Care Provider Active Team Status: Inactive Member Role Status Dates Dr. Glenny Cordoba MD Primary Care Provider, Referring P rovider Active AV[employer] Justice Attending Provider Active Team Status: Inactive Member Role Status Dates Dr. Glenny Cordoba MD Primary Care Provider Active Dr. Papito Strong MD Attending Provider Active Team Status: Inactive Member Role Status Dates Dr. Glenny Cordoba MD Primary Care Provider Active Alejandra Benoit NP-C Attending Provider Active Team Status: Inactive Member Role Status Dates Dr. Glenny Cordoba MD Primary Care Provider Active AVT[employer] Justice Attending Provider, Referring Provi inga Active Team Status: Inactive Member Role Status Dates Dr. Glenny Cordoba MD Primary Care Provide r, Attending Provider, Referring Provider Active Team Status: Inactive Member Role Status Dates Dr. Glenny Cordoba MD Primary Care Provider, Attending P rovider Active Team Status: Active Member Role Status Dates Dr. Glenny Cordoba MD Primary Care Provider Active Dr. 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 Glenny Cordoba MD Primary Care Provider Active Team Status: Inactive Member Role Status Dates Dr. Glenny Cordoba MD Primary Care Provider Active Start: June 01, 2024 End: June 01, 2024 Dr. Glenny Cordoba MD Attending Provider Active St art: June 01, 2024 End: June 01, 2024 Dr. Glenny Cordoba MD Referring Provider Active St art: June 01, 2024 End: June 01, 2024 Goals (unrecognized section and content) Goals may be documented in a n alternate sectionGoals may be documented in an alternate sectionGoals may be documented in an alternate sectionGoals may be documented in an alternate sectionGoals may be documented in an alternate sectionGoals may be documented in an alternate sectionGoals may be documented in an alternate sectionGoals may be documented in an alternate sectionGoals may be documented in an alternate section INFORMATION SOURCE (unrecogn ized section and content) DATE CREATED AUTHOR 03/03/[address] [facility] DATE CREATED AUTHOR AUTHOR'S ORGANIZ ATION 05/31/2024 [facility] DATE CREATED AUTHOR AUTHOR'S ORGANIZ ATION 06/05/2024 [facility] FOR RECORDS PERTAINING TO PATIENTS WHO ARE OR HAVE BEEN ENROLLED IN A CHEMICAL DEPENDENCY/SUBSTANCEABUSE PROGRAM, SOME INFORMATION MAY BE OMITTED. This clinical summary was aggregated from multiple sources. Caution should be exercised in using it in the provision of clinical care. This summary normalizes information from multiple sources, and as a consequence, information in this document may materially change the coding, format and clinical context of patient data. In addition, data may be omitted in some cases. CLINICAL DECISIONS SHOULD BE BASED ON THE PRIMARY CLINICAL RECORDS. [employer] provides no warranty or guarantee of the accuracy or completeness of information in this document.
[2024-11-16 10:38] LABS: Hematocrit 40.8 % (37-47); Hemoglobin 13.4 g/dL (12.0-15.0); Immature Granulocytes Count 0.030 X10^3/uL (0.0-0.0); Mean Corp Hgb Conc 32.8 g/dL (32-36); Mean Corpuscular Volume 95.3 fL (81-99); Mean Platelet Vol. 11.5 fl (6.2-12.0); NRBC Flagged by Analyzer 0 % (0-5); Platelet Count 297 K/mm3 (150-450); RBC Distribution Width CV 12.8 % (11.6-14.6); RBC Distribution Width SD 44.3 fl (35.1-43.9); Red Blood Count 4.28 M/mm3 (4.2-5.4); White Blood Count 11.3 K/mm3 (4.4-11.0)
[2024-11-16 10:54] LABS: Creatinine, Urine (random) 236.00 mg/dL (28.00-217.00); Microalbumin,Random Urine 34.9 mg/L (<20 mg/L)
[2024-11-16 13:04] LABS: AST(SGOT) 23 U/L (<=31); Alanine Aminotransfer ALT/SGPT 32 U/L (<=34); Albumin, Serum 4.3 g/dL (3.5-5.0); Alkaline Phosphatase 76 U/L (35-104); Anion Gap 13 (5-15); BUN 11 mg/dL (4-19); BUN/Creat Ratio 14.0 RATIO (10-20); Calcium,Total 9.6 mg/dL (7.6-11.0); Carbon Dioxide 23.1 mmol/L (21.0-32.0); Chloride 103 mmol/L (98-108); Cholesterol 217 mg/dL (<=200); Globulin 3.0 g/dL (2.2-4.2); Glucose 126 mg/dL (70-99); Low Density Lipoprotein Calc. 166 mg/dL; Potassium 4.2 mmol/L (3.3-5.1); Triglycerides 68 mg/dL; Very Low Density Lipoprotein 14 mg/dL (5-40); cholesterol:hdl ratio screen 5.77
== END | disposition home or self-care (01) ==
LOC: MFPLAB 09:09
PROVIDERS: PCP Family Medicine; Visit Provider Family Medicine
DX: E11.9 Type 2 diabetes mellitus without complications (principal)
CPT/HCPCS: 36415; 80053; 80061; 82043; 82570; 83036; 85025